=== PATIENT | female | born 1970 | race Caucasian/White ===

== ENCOUNTER 2023-08-08 13:13 | Outpatient (AMB) | payer MEDICAID, SELFPAY ==
--- NOTE | 2023-08-08 13:15 | A.OFFVIS_ITS ---
Intake Vital Signs 08/08/23 13:21 BP 110/72 Blood Pressure Location Lt radial Position Sitting Pulse 68 Pulse Source Pulse Oximeter Pulse Oximetry (%) 94 Oxygen Delivery Method Room Air Intake Visit Reasons: mat intake Intake Note: the patient presents for a mat inake Community Services Manager Required: No Allergies Penicillins Allergy (Unknown, Verified 08/08/23 13:35) Rash aspirin Adverse Reaction (Intermediate, Verified 08/08/23 13:36) Palpitations codeine Adverse Reaction (Unknown, Verified 08/08/23 13:36) Palpitations Do you need a note to return to daycare/school/sports/work: No HPI mat intake HPI Details Patient presents for intake 30 years pills methadone 13 years transitioned to Suboxone --[facility] [place] Current Suboxone dose 8mg QD Detox one month ago for alcohol --taking campral Cocaine 1-2X/week [facility] for counseling -referred by therapist Current alcohol use 5 nips daily --has reduced from one gall on of vodka over the last 2 years History of alcohol withdrawal seizure (abrupt discontinuation of alcohol) over the summer of 2021 Withdrawal sx when she doesn't drink (tremor) drinks throughout the day History pancreatitis -same admission Cocaine use IN cuts it with anesthatol 5x/week 3 lines each use Opiates Started using in her early 20's following wisdom teeth removal and percocet prescription one year of IV use -heroin Medical History: Denies chronic health issues denies HIV or hepatitis C PCP at [facility] Social History: -boyfriend for the last 3 years --he is in recovery and supportive of patient -lives with her sister who has pancreati c cancer -mother when patient was 16 yea rs old from breast cancer -father still alive 85 years old -no family history of addiction Treatment history -3 [facility] admissions 1 for opiates and 2 fo r alcohol Recovery supports: -family, friends and boyfriend -AA meetings in [place] Does not work, occasionally side work father supports her financially BH History: -no psychiatric admissions -no psychiatric medications -therapist at [facility] for the last 4 months Review of Systems Const Reports as per HPI Physical Exam Vital Signs: Last Vital Signs Pulse 68 08/08/23 13:21 BP 110/72 08/08/23 13:21 Pulse Ox 94 08/08/23 13:21 Oxygen Delivery Method Room Air 08/08/23 13:21 Const General: cooperative and healthy appearing Psych Appearance: well kempt Speech and movement: Clear speech present Affect: Anxious affect present Assessment & Plan Assessment & Plan (1) Alcohol use disorder, severe, dependence: Code(s): F10.20 - Alcohol dependence, uncomplicated Plan: * reinforced not abruptly stopping alcohol * provided with information on safer drinking * encouraged to continue campral * suboxone refiled * follow up one week (2) Opioid use disorder: Code(s): F11.90 - Opioid use, unspecified, uncomplicated Plan: * suboxone continued (3) Cocaine use disorder: Code(s): F14.10 - Cocaine abuse, uncomplicated Plan: * risk reduction discussion Medications: New buprenorphine-naloxone 8-2 mg (Suboxone) 1 film sublingual DAILY 20 ea 0RF Coding Level of Care Code New Pt Level 4 (31936) Diagnoses Alcohol use disorder, severe, dependence F10.20 Opioid use disorder F11.90 Cocaine use disorder F14.10
[2023-08-08 13:21] VITALS: BP 110/72; PULSE 68; O2SAT 94
== END 2023-08-08 14:32 | disposition home or self-care (01) ==
PROVIDERS: Visit Provider Nurse Practitioner Psychiatric/Mental Health
DX: F10.20 Alcohol dependence, uncomplicated (principal); F11.90 Opioid use, unspecified, uncomplicated; F14.10 Cocaine abuse, uncomplicated
CPT/HCPCS: 99204

== ENCOUNTER → 2023-08-08 13:13 | Outpatient (BNVA) | payer MEDICAID, SELFPAY | PROVIDERS: Visit Provider Nurse Practitioner Psychiatric/Mental Health | DX: F10.20 Alcohol dependence, uncomplicated (principal); F11.20 Opioid dependence, uncomplicated; F14.10 Cocaine abuse, uncomplicated | CPT/HCPCS: 99212 ==

== ENCOUNTER 2023-08-14 09:26 | Outpatient (REF) | payer MEDICAID, SELFPAY ==
[2023-08-14 09:49] LABS: MANUAL DIFF FLAG NO
[2023-08-14 10:21] LABS: Basophils Absolute Auto 0.1 X10*3/uL (0.0-0.2); Basophils Percent Auto 1.1 % (0-2); Eosinophils Absolute Auto 0.1 X10*3/uL (0.0-0.4); Eosinophils Percent Auto 1.7 % (0-4); Hematocrit 44.7 % (37.0-47.0); Hemoglobin 15.5 g/dl (12.0-16.0); Imm Gran Abs Auto 0.01 X10*3/uL (0.00-0.03); Imm Gran Pct Auto 0.2 % (0.0-0.4); Lymphocytes Absolute Auto 1.7 X10*3/uL (1.2-4.9); Lymphocytes Percent Auto 32.1 % (20-40); Mean Corpuscular HGB Conc 34.7 g/dl (31.0-35.0); Mean Corpuscular Hemoglobin 34.8 pg (27.0-33.0); Mean Corpuscular Volume 100.4 fL (80.0-98.0); Monocytes Absolute Auto 0.5 X10*3/uL (0.1-1.2); Monocytes Percent Auto 9.4 % (2-11); Neutrophils Absolute Auto 2.9 x10*3/uL (2.0-8.3); Neutrophils Percent Auto 55.5 % (45-73); Platelet Count 248 X10*3/uL (160-400); Red Blood Count 4.45 X10*6/uL (4.20-5.50); Red Cell Distribution Width 12.8 % (11.0-16.0); White Blood Count 5.2 X10*3/uL (4.8-10.8)
[2023-08-14 11:32] LABS: HBc Num1 0.12 S/CO (0.00-0.79); HBsAGNum1 0.27 S/CO (0.00-0.99); HIV AB/AG Nonreactive (Nonreactive); HIV Num 1 0.09 S/CO (0.00-0.99); Hepatitis A Antibody IgM 0.15 Index (0-0.79); Hepatitis B Core Antibody Nonreactive (Nonreactive); Hepatitis B Surface Antigen Negative (Negative); ~HepC Num1 0.13 S/CO (0.00-0.79); ~Hepatitis A Antibody IgM Nonreactive (Nonreactive); ~Hepatitis B Surface Antibody REACTIVE (Nonreactive); ~Hepatitis C Antibody Nonreactive (Nonreactive)
[2023-08-14 12:17] LABS: Alanine Aminotransferase 60 U/L (0-31); Albumin Level 3.4 g/dL (3.5-5.0); Alkaline Phosphatase 143 U/L (39-117); Anion Gap 16 (12-20); Aspartate Amino Transferase 255 U/L (5-31); Blood Urea Nitrogen 6 mg/dL (9-16); Calcium 8.7 mg/dL (8.4-10.2); Carbon Dioxide 26 mmol/L (22-29); Chloride 103 mmol/L (96-108); Estimated Glomerular Filt Rate > 60; Glucose Random 105 mg/dL (60-115); Potassium 3.6 mmol/L (3.3-5.1); Sodium 141 mmol/L (135-145); Total Protein 6.8 g/dL (6.5-8.0)
== END 2023-08-14 09:27 | disposition home or self-care (01) ==
LOC: HO.LAB 09:26
PROVIDERS: Visit Provider Nurse Practitioner Psychiatric/Mental Health
DX: F10.20 Alcohol dependence, uncomplicated (principal); F14.10 Cocaine abuse, uncomplicated; F11.90 Opioid use, unspecified, uncomplicated
CPT/HCPCS: 36415; 80053; 85025; 86704; 86706; 86709; 86803; 87340; 87389; 99212

== ENCOUNTER 2023-08-14 14:40 | Outpatient (AMB) | payer MEDICAID, SELFPAY ==
--- NOTE | 2023-08-14 14:46 | A.OFFVIS_ITS ---
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 Patient disclosed her sister is stage 4 and terminal. Processed with patient. She reports she has previously gone to detox 2 times. She is currently drinking 5 nips a day to prevent withdrawal seizures. She reports she was hospitalized at [facility] for a week after complicated withdrawal and experienced seizures at that time. Her goal is to go to detox again after the holidays She does not want to be gone to rehab and miss [place] as she feels she needs continued care such as CSS after completing rehab. She reports she has a counselor that she see regularly through [facility]. She reports her cocaine use has diminished to a couple of times a week - she reports it has a relaxing effect on her. Review of Systems Const Reports as per HPI Physical Exam Vital Signs: Last Vital Signs Pulse 88 08/14/23 14:51 BP 116/74 08/14/23 14:51 Pulse Ox 96 08/14/23 14:51 Oxygen Delivery Method Room Air 08/14/23 14:51 Const General: cooperative and no acute distress Nutritional Appearance: thin Resp Effort & Inspection: normal respiratory effort Skin General skin exam: no rashes or lesions noted Psych Appearance: grossly normal Mental Status: mental status grossly normal Speech and movement: Normal speech and movement present Affect: Sad affect present Attitude: cooperative Thought content: Normal thought content present Assessment & Plan Assessment & Plan (1) Cocaine use disorder: Code(s): F14.10 - Cocaine abuse, uncomplicated Plan: - Harm reduction discussed -Goals related to use discussed (2) Alcohol use disorder, severe, dependence: Code(s): F10.20 - Alcohol dependence, uncomplicated Plan: -Harm reduction discussed -Reinforced the importance of weaning slowly from alcohol -Detox plan to be made after holidays -Follow up 2 weeks- she would like to maintain her appointments to when her sister is receiving her treatment. (3) Opioid use disorder: Code(s): F11.90 - Opioid use, unspecified, uncomplicated Plan: -Stable in recovery (2 decades) -Continue suboxone at current dose Coding Level of Care Code Est Pt Level 3 (53799) Diagnoses Cocaine use disorder F14.10 Alcohol use disorder, severe, dependence F10.20 Opioid use disorder F11.90
[2023-08-14 14:51] VITALS: BP 116/74; PULSE 88; O2SAT 96
== END 2023-08-14 15:46 | disposition home or self-care (01) ==
PROVIDERS: Visit Provider Nurse Practitioner Family
DX: F10.20 Alcohol dependence, uncomplicated (principal); F14.10 Cocaine abuse, uncomplicated; F11.90 Opioid use, unspecified, uncomplicated
CPT/HCPCS: 99213

== ENCOUNTER → 2023-08-30 13:42 | Outpatient (BNVA) | payer MEDICAID, SELFPAY | PROVIDERS: Visit Provider Nurse Practitioner Family ==

== ENCOUNTER 2023-09-11 13:52 | Outpatient (AMB) | payer MEDICAID, SELFPAY ==
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
[2023-09-11 14:09] VITALS: BP 140/60; PULSE 79; RESP 19; O2SAT 96
== END 2023-09-11 15:07 | disposition home or self-care (01) ==
PROVIDERS: Visit Provider Nurse Practitioner Family
DX: F10.20 Alcohol dependence, uncomplicated (principal); F14.10 Cocaine abuse, uncomplicated; K29.70 Gastritis, unspecified, without bleeding
CPT/HCPCS: 99214

== ENCOUNTER → 2023-09-11 13:52 | Outpatient (BNVA) | payer MEDICAID, SELFPAY | PROVIDERS: Visit Provider Nurse Practitioner Family | DX: F10.20 Alcohol dependence, uncomplicated (principal); F14.10 Cocaine abuse, uncomplicated; K29.70 Gastritis, unspecified, without bleeding | CPT/HCPCS: 99212 ==

== ENCOUNTER 2023-09-18 14:01 | Outpatient (AMB) | payer MEDICAID, SELFPAY ==
--- NOTE | 2023-09-18 14:10 | MHC.AM.SUB ---
Intake Vital Signs 09/18/23 14:11 BP 118/70 Blood Pressure Location Lt radial Position Sitting Pulse 76 Pulse Source Pulse Oximeter Pulse Oximetry (%) 96 Oxygen Delivery Method Room Air Intake Visit Reasons: mat visit Intake Note: the patient presents for a mat visit Resource Development Director Required: No Allergies Penicillins Allergy (Unknown, Verified 09/18/23 14:12) Rash aspirin Adverse Reaction (Intermediate, Verified 09/18/23 14:12) Palpitations codeine Adverse Reaction (Unknown, Verified 09/18/23 14:12) Palpitations Do you need a note to return to daycare/school/sports/work: No HPI mat visit HPI Details Pt presents for NEETU treatment and follow up She reports having GI illness x 3 days at the end of the previous week. She reports she had nausea and vomiting, and at one point experienced carpopedal spasms post vomiting. She endorses feeling fatigued, with dark urine over the weekend when she was experiencing the GI effects. She denies any RUQ pain during this time. She reports poor intake over the weekend with low appetite. She continues to drink approximately 5 nips a day to maintain she states she hates the smell and taste of them, and also hates she is dependent on them She became tearful at this time, and expressed her desire to go into detox. She reports she is not quite ready yet however, and would like to touch base with her therapist first. Review of Systems Const Reports as per HPI GI Denies abdominal pain and Reports nausea Physical Exam Vital Signs: Last Vital Signs Pulse 76 09/18/23 14:11 BP 118/70 09/18/23 14:11 Pulse Ox 96 09/18/23 14:11 Oxygen Delivery Method Room Air 09/18/23 14:11 Const General: cooperative and no acute distress Nutritional Appearance: thin Resp Effort & Inspection: normal respiratory effort and able to speak in complete sentences Psych Appearance: grossly normal Mental Status: mental status grossly normal Speech and movement: Normal speech and movement present Affect: Labile affect present Attitude: cooperative Thought process: Circumstantial thought process present Assessment & Plan Assessment & Plan (1) Alcohol use disorder, severe, dependence: Code(s): F10.20 - Alcohol dependence, uncomplicated Plan: -Labwork obtained to rule out electrolyte disturbances as a result of nausea/vomiting for multiple days in addition to chronic alcoholism -Magnesium was found to be critically low: 0.8. Patient called and advised to come to the ED for magnesium replacement, risks of delaying treatment explained to patient and her sister. Patient agreeable to going to ED. -Pt to follow up with clinic in 1 week, detox planning will begin at that time Orders: Orders Complete Blood Count Auto Diff 09/18/23 F10.20 - Alcohol dependence, uncomplicated Comprehensive Met. Panel 09/18/23 F10.20 - Alcohol dependence, uncomplicated Medications: New thiamine HCl (vitamin B1) 100 mg PO DAILY 30 tabs 3RF Refilled buprenorphine-naloxone 8-2 mg (Suboxone) 1 film sublingual DAILY 7 ea 0RF Discontinued thiamine HCl (vitamin B1) Discontinued Reason: None 50 mg PO DAILY 30 tabs 3RF Coding Level of Care Code Est Pt Level 4 (20210) Diagnoses Alcohol use disorder, severe, dependence F10.20
[2023-09-18 14:11] VITALS: BP 118/70; PULSE 76; O2SAT 96
== END 2023-09-18 14:53 | disposition home or self-care (01) ==
PROVIDERS: Visit Provider Nurse Practitioner Family
DX: F10.20 Alcohol dependence, uncomplicated (principal)
CPT/HCPCS: 99214

== ENCOUNTER 2023-09-18 14:01 | Outpatient (REF) | payer MEDICAID, SELFPAY ==
[2023-09-18 15:23] LABS: MANUAL DIFF FLAG NO
[2023-09-18 15:45] LABS: Basophils Percent Auto 0.4 % (0-2); Eosinophils Percent Auto 0.4 % (0-4); Hematocrit 43.2 % (37.0-47.0); Hemoglobin 15.2 g/dl (12.0-16.0); Imm Gran Abs Auto 0.04 X10*3/uL (0.00-0.03); Imm Gran Pct Auto 0.4 % (0.0-0.4); Lymphocytes Absolute Auto 2.3 X10*3/uL (1.2-4.9); Lymphocytes Percent Auto 23.8 % (20-40); Mean Corpuscular HGB Conc 35.2 g/dl (31.0-35.0); Mean Corpuscular Hemoglobin 34.2 pg (27.0-33.0); Mean Corpuscular Volume 97.1 fL (80.0-98.0); Mean Platelet Volume 11.3 fL (9.4-12.3); Monocytes Absolute Auto 0.6 X10*3/uL (0.1-1.2); Monocytes Percent Auto 5.8 % (2-11); Neutrophils Absolute Auto 6.6 x10*3/uL (2.0-8.3); Neutrophils Percent Auto 69.2 % (45-73); Platelet Count 158 X10*3/uL (160-400); Red Blood Count 4.45 X10*6/uL (4.20-5.50); Red Cell Distribution Width 12.5 % (11.0-16.0); White Blood Count 9.5 X10*3/uL (4.8-10.8)
[2023-09-18 16:05] LABS: Alanine Aminotransferase 56 U/L (0-31); Albumin Level 3.7 g/dL (3.5-5.0); Alkaline Phosphatase 161 U/L (39-117); Anion Gap 14 (12-20); Aspartate Amino Transferase 203 U/L (5-31); Bilirubin Total 1.6 mg/dL (0.0-1.0); Blood Urea Nitrogen 5 mg/dL (9-16); Calcium 8.3 mg/dL (8.4-10.2); Carbon Dioxide 28 mmol/L (22-29); Chloride 100 mmol/L (96-108); Estimated Glomerular Filt Rate > 60; Glucose Random 140 mg/dL (60-115); Sodium 139 mmol/L (135-145); Total Protein 7.3 g/dL (6.5-8.0)
[2023-09-18 16:56] LABS: Magnesium 0.8 mg/dL (1.6-2.6)
== END 2023-09-18 14:02 | disposition home or self-care (01) ==
LOC: HO.LAB 14:01
PROVIDERS: Visit Provider Nurse Practitioner Family
DX: F10.20 Alcohol dependence, uncomplicated (principal)
CPT/HCPCS: 36415; 80053; 83735; 85025; 99212

== ENCOUNTER 2023-09-27 13:28 | Outpatient (REF) | payer MEDICAID, SELFPAY ==
[2023-09-27 15:54] LABS: Alanine Aminotransferase 60 U/L (0-31); Albumin Level 3.4 g/dL (3.5-5.0); Alkaline Phosphatase 165 U/L (39-117); Anion Gap 10 (12-20); Aspartate Amino Transferase 189 U/L (5-31); Bilirubin Total 1.1 mg/dL (0.0-1.0); Blood Urea Nitrogen 6 mg/dL (9-16); Calcium 8.2 mg/dL (8.4-10.2); Carbon Dioxide 29 mmol/L (22-29); Chloride 106 mmol/L (96-108); Estimated Glomerular Filt Rate > 60; Glucose Random 130 mg/dL (60-115); Potassium 3.4 mmol/L (3.3-5.1); Sodium 142 mmol/L (135-145); Total Protein 6.6 g/dL (6.5-8.0)
[2023-09-27 16:08] LABS: Magnesium 1.1 mg/dL (1.6-2.6)
== END 2023-09-27 13:29 | disposition home or self-care (01) ==
LOC: HO.LAB 13:28
PROVIDERS: Visit Provider Nurse Practitioner Family
DX: F10.20 Alcohol dependence, uncomplicated (principal); F11.90 Opioid use, unspecified, uncomplicated; R89.9 Unspecified abnormal finding in specimens from other organs, systems and tissues
CPT/HCPCS: 36415; 80053; 83735; 99212

== ENCOUNTER 2023-09-27 13:28 | Outpatient (AMB) | payer MEDICAID, SELFPAY ==
--- NOTE | 2023-09-27 13:29 | A.OFFVISCC_ITS ---
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 She denies further episodes of N/V/D, or muscle spasms. She has an appointment with her therapist through [facility] tomorrow and plans to discuss rehab options. She reports her therapist has previously found her detox placement. She is expressing that she feels as though she is really done with alcohol, became tearful as she was saying this, she reports she only drinks to maintain and hates that she has to do that. She continues to drink 5-6 nips daily to prevent withdrawals. T/w provided her with an educational handout addressing the withdrawal timeline Review of Systems Const Reports as per HPI Psych Reports anxiety Physical Exam Vital Signs: Last Vital Signs Pulse 95 09/27/23 13:35 BP 110/70 09/27/23 13:35 Pulse Ox 96 09/27/23 13:35 Oxygen Delivery Method Room Air 09/27/23 13:35 Const General: cooperative, no acute distress and alert Resp Effort & Inspection: normal respiratory effort and able to speak in complete sentences Psych Appearance: grossly normal Mental Status: mental status grossly normal Speech and movement: Normal speech and movement present Affect: Labile affect present Attitude: cooperative Thought process: Tangential thought process present Results Reviewed Results Reviewed: Laboratory Tests 09/27/23 14:55 Sodium 142 Potassium 3.4 Chloride 106 Carbon Dioxide 29 Anion Gap 10 L BUN 6 L Creatinine 0.73 Estimated GFR > 60 Random Glucose 130 H Calcium 8.2 L Magnesium 1.1 L* Total Bilirubin 1.1 H AST 189 H ALT 60 H Alkaline Phosphatase 165 H Total Protein 6.6 Albumin 3.4 L Assessment & Plan Assessment & Plan (1) Opioid use disorder: Code(s): F11.90 - Opioid use, unspecified, uncomplicated Plan: -Continue suboxone at current dose -Follow up 1 week- telehealth (2) Alcohol use disorder, severe, dependence: Code(s): F10.20 - Alcohol dependence, uncomplicated Plan: -She is meeting with her therapist tomorrow to discuss rehab options -She continues to drink 5-6 nips daily to maintain and prevent seizures, harm reduction discussed -Provided withdrawal timeline education (3) Abnormal laboratory test: Code(s): R89.9 - Unspecified abnormal finding in specimens from other organs, systems and tissues Plan: -Discussed again with patient her labs drawn on 09/18 (see previous note) -Discussed seriousness of delaying medical treatment should the labs be unimpr corby include cardiac arrhythmias and potential cardica arrest, she verbalized understanding and insisting at this time she will seek treatment if her labs are abnormal. -Labwork re-ordered and pt to present for them to be drawn after appointment -Discussed with pt t/w will call her today with her results -Labs reviewed- patient phoned with critical result, she has vocalized she is [place] [facility] [place] Orders: Orders Magnesium Today R89.9 - Unspecified abnormal finding in specimens from other organs, systems and tissues Comprehensive Met. Panel Today R89.9 - Unspecified abnormal finding in specimens from other organs, systems and tissues Medications: Refilled buprenorphine-naloxone 8-2 mg (Suboxone) 1 film sublingual DAILY 7 ea 0RF Coding Level of Care Code Est Pt Level 4 (71396) Diagnoses Opioid use disorder F11.90 Alcohol use disorder, severe, dependence F10.20 Abnormal laboratory test R89.9
[2023-09-27 13:35] VITALS: BP 110/70; PULSE 95; O2SAT 96
== END 2023-09-27 14:10 | disposition home or self-care (01) ==
PROVIDERS: Visit Provider Nurse Practitioner Family
DX: F11.90 Opioid use, unspecified, uncomplicated (principal); F10.20 Alcohol dependence, uncomplicated; R89.9 Unspecified abnormal finding in specimens from other organs, systems and tissues
CPT/HCPCS: 99214

== ENCOUNTER 2023-09-27 18:33 | Emergency (ER) | payer MEDICAID, SELFPAY ==
[2023-09-27 18:42] VITALS: BP 152/91; PULSE 86; RESP 20; TEMP 36; O2SAT 97; BMI 19.2
--- NOTE | 2023-09-27 18:42 | ED_ITS ---
HPI - General Adult General Chief complaint: Recheck/Abnormal Lab/Rx Stated complaint: critically low magnesium Time Seen by Provider: 09/27/23 20:02 Mode of arrival: ambulatory Limitations: no limitations History of Present Illness HPI narrative: Patient alcoholic with polysubstance abuse with chronic hypomagnesemia on oral magnesium tablets sent by therapist for low magnesium of 1.2 patient's ran out of medication for last 2 weeks taking only [id number]-[id number] medication supplement her magnesium complaining of whole body aches and weakness with hand spasm Related Data Home Medications Medication Instructions Recorded Confirmed clonidine HCl 0.1 mg tablet 0.1 mg PO QHS 08/08/23 08/08/23 Previous Rx's Medication Instructions Recorded folic acid 1 mg tablet 1 mg PO DAILY #30 tabs 09/11/23 ondansetron 4 mg disintegrating 4 mg PO Q8H PRN nausea and 09/11/23 tablet vomiting #30 tabs sucralfate 100 mg/mL oral 5 ml PO QID #420 mL 09/11/23 suspension potassium chloride 40 mEq/15 mL 40 meq (15 mL) PO DAILY #473 mL 09/18/23 oral liquid thiamine HCl (vitamin B1) 100 mg 100 mg PO DAILY #30 tabs 09/18/23 tablet buprenorphine 8 mg-naloxone 2 mg 1 film sublingual DAILY #7 ea 09/27/23 sublingual film (Suboxone) magnesium oxide 400 mg PO BID #180 tabs 09/27/23 potassium chloride 20 mEq 20 meq PO DAILY #90 tabs 09/27/23 tablet,extended release Allergies Allergy/AdvReac Type Severity Reaction Status Date / Time Penicillins Allergy Unknown Rash Verified 09/27/23 18:42 aspirin AdvReac Intermediate Palpitation Verified 09/27/23 18:42 s codeine AdvReac Unknown Palpitation Verified 09/27/23 18:42 s Review of Systems 2 Review of Systems: Yes all other systems are reviewed and are negative [facility] Social History Social History Alcohol intake: current Alcohol intake frequency: 3 or more drinks per day Alcohol type: hard liquor Smoked in Last 30 Days: Yes Substance Use Type: Crack/Cocaine Substance Use Frequency: Occasionally Last Used Substance: Days (ago) Advance Directives: No Advance Directives Information Provided: No Patient : No Physical Exam ED Vital Signs: Vital Signs - 24 hr 09/27/23 18:42 09/27/23 19:54 Temperature 96.8 F Pulse Rate 86 75 Respiratory Rate 20 18 Blood Pressure 152/91 H 123/78 Pulse Oximetry 97 98 Oxygen Delivery Method Room Air Room Air BMI result Body Mass Index 19.2 Appearance: Alert. Oriented X3. No acute distress. Eyes: PERRLA, No Nystagmus ENT: Pharynx normal. Oral Mucosa moist Neck: Normal inspection. Neck supple. CVS: Normal heart rate and rhythm. Pulses normal. Respiratory: No respiratory distress. Equal air entry bilateral, no wheezing/rales/rhonchi Abdomen: Soft and nontender. Bowel sounds are present, no mass palpable, no CVA tenderness Skin: Skin warm and dry. Normal skin color. Normal skin turgor. Extremities: No lower extremity edema. No calf tenderness Neuro: Oriented X 3. No motor deficit. No sensory deficit.No cerebellar signs , cranial nerves II-XII intact Course Course Course Narrative: RME- 52-year-old female presents for evaluation of ?my magnesium is low. ? We received in expect call from ?[facility]. The patient's magnesium was 1.1 as an outpatient. She was vomiting last week but is also an alcoholic. Plan for repeat labs Medications Administered Discontinued Medications Generic Name Dose Route Start Last Admin Trade Name Ebenq PRN Reason Stop Dose Admin Magnesium Sulfate 2 gm in 50 mls @ 150 mls/hr 09/27/23 20:04 09/27/23 20:45 Magnesium Sulfate/H2o IV 09/27/23 20:23 Infused ONCE ONE Infusion Sodium Chloride 1,000 mls @ 999 mls/hr 09/27/23 20:11 09/27/23 21:26 Ns IV 09/27/23 21:11 Infused .Q1H1M ONE Infusion Magnesium Oxide 800 mg 09/27/23 21:35 09/27/23 21:39 Magnesium Oxide 400 Mg Tablet PO 09/27/23 21:36 800 mg ONCE ONE Administration Potassium Bicarbonate 50 meq 09/27/23 20:04 09/27/23 20:23 Potassium Bicarbonate/Cit Ac 25 Meq Tablet.Eff PO 09/27/23 20:05 50 meq ONCE ONE Administration Medical Decision Making Medical Decision Making MDM Narrative: Patient has hypomagnesemia hypokalemia which was replaced in the ER prescription for magnesium oxide was given advised patient to follow with PCP to recheck her magnesium level Lab Data MDM Lab Attestation statement: I reviewed the patient's lab results. 09/27/23 18:58 09/27/23 18:58 Labs: Lab Results 09/27/23 Range/Units 18:58 WBC 7.7 (4.8-10.8) X10*3/uL RBC 3.74 L (4.20-5.50) X10*6/uL Hgb 13.1 (12.0-16.0) g/dl Hct 37.1 (37.0-47.0) % MCV 99.2 H (80.0-98.0) fL MCH 35.0 H (27.0-33.0) pg MCHC 35.3 H (31.0-35.0) g/dl RDW 13.3 (11.0-16.0) % Plt Count 181 (160-400) X10*3/uL MPV 10.5 (9.4-12.3) fL Immature Gran % (Auto) 0.3 (0.0-0.4) % Neut % (Auto) 50.9 (45-73) % Lymph % (Auto) 40.7 H (20-40) % [place] % (Auto) 6.4 (2-11) % Eos % (Auto) 0.9 (0-4) % Baso % (Auto) 0.8 (0-2) % Lymph # (Auto) 3.1 (1.2-4.9) X10*3/uL [place] # (Auto) 0.5 (0.1-1.2) X10*3/uL Eos # (Auto) 0.1 (0.0-0.4) X10*3/uL Baso # (Auto) 0.1 (0.0-0.2) X10*3/uL Abs Immat Gran (auto) 0.02 (0.00-0.03) X10*3/uL Absolute Neuts (auto) 3.9 (2.0-8.3) x10*3/uL Absolute Nucleated RBC 0.000 (0.0-0.012) X10*3/uL Nucleated RBC % (auto) 0.0 (0.0-0.2) /100WBC Sodium 144 (135-145) mmol/L Potassium 3.1 L (3.3-5.1) mmol/L Chloride 106 (96-108) mmol/L Carbon Dioxide 29 (22-29) mmol/L Anion Gap 12 (12-20) BUN 6 L (9-16) mg/dL Creatinine 0.78 (0.5-1.4) mg/dL Estim Creat Clear Calc 71.8 Estimated GFR > 60 Random Glucose 108 (60-115) mg/dL Calcium 8.1 L (8.4-10.2) mg/dL Phosphorus 2.9 (2.7-4.5) mg/dL Magnesium 1.2 L* (1.6-2.6) mg/dL Total Bilirubin 0.9 (0.0-1.0) mg/dL AST 200 H (5-31) U/L ALT 62 H (0-31) U/L Alkaline Phosphatase 171 H (39-117) U/L Total Protein 6.8 (6.5-8.0) g/dL Albumin 3.5 (3.5-5.0) g/dL Lipase 9 (8-78) U/L Ethyl Alcohol 210 mg/dL Independent Interpretation I performed an independent interpretation of an: EKG Interpretation: Sinus bradycardia heart rate 53 beats per minute normal interval normal axis no acute ST T wave changes no acute ischemia Discharge Plan Discharge Clinical Impression: Hypomagnesemia, Chronic hypokalemia Patient Disposition: Home, Self-Care Instructions: Hypokalemia (ED), Hypomagnesemia (ED) Additional Instructions: Take magnesium and potassium tab as prescribed Have orange juice/banana as advised Follow-up with PCP to recheck potassium and magnesium level Prescriptions: New magnesium oxide 400 mg magnesium tablet 400 mg PO BID Qty: 180 3RF potassium chloride 20 mEq tablet extended release 20 meq PO DAILY Qty: 90 3RF No Action potassium chloride 40 mEq/15 mL liquid 40 meq PO DAILY Qty: 473 0RF clonidine HCl 0.1 mg tablet 0.1 mg PO QHS thiamine HCl (vitamin B1) 100 mg tablet 100 mg PO DAILY Qty: 30 3RF buprenorphine-naloxone [Suboxone] 8-2 mg film 1 film sublingual DAILY Qty: 7 0RF folic acid 1 mg tablet 1 mg PO DAILY Qty: 30 3RF ondansetron 4 mg tablet,disintegrating 4 mg PO Q8H PRN (Reason: nausea and vomiting) Qty: 30 0RF sucralfate 100 mg/mL suspension 5 ml PO QID Qty: 420 0RF Rx Instructions: swish in mouth and swallow; use after food/drink Interventions: ED Discharge Assessment Last Done: 09/27/23 22:08 Discharge Date/Time: 09/27/23 22:09
--- NOTE | 2023-09-27 18:42 | ECG_ITS ---
Test Reason : low mag Blood Pressure : / mmHG Vent. Rate : 053 BPM Atrial Rate : 053 BPM P-R Int : 126 ms QRS Dur : 092 ms QT Int : 422 ms P-R-T Axes : 045 071 067 degrees QTc Int : 395 ms Sinus bradycardia Otherwise normal ECG No previous ECGs available Referred By: Jovany Rodriguez Electronically Signed By:FAREED URIOSTEGUI
[2023-09-27 19:07] LABS: MANUAL DIFF FLAG NO
[2023-09-27 19:10] LABS: Basophils Absolute Auto 0.1 X10*3/uL (0.0-0.2); Basophils Percent Auto 0.8 % (0-2); Eosinophils Absolute Auto 0.1 X10*3/uL (0.0-0.4); Eosinophils Percent Auto 0.9 % (0-4); Hematocrit 37.1 % (37.0-47.0); Hemoglobin 13.1 g/dl (12.0-16.0); Imm Gran Abs Auto 0.02 X10*3/uL (0.00-0.03); Imm Gran Pct Auto 0.3 % (0.0-0.4); Lymphocytes Absolute Auto 3.1 X10*3/uL (1.2-4.9); Lymphocytes Percent Auto 40.7 % (20-40); Mean Corpuscular HGB Conc 35.3 g/dl (31.0-35.0); Mean Corpuscular Volume 99.2 fL (80.0-98.0); Mean Platelet Volume 10.5 fL (9.4-12.3); Monocytes Absolute Auto 0.5 X10*3/uL (0.1-1.2); Monocytes Percent Auto 6.4 % (2-11); Neutrophils Absolute Auto 3.9 x10*3/uL (2.0-8.3); Neutrophils Percent Auto 50.9 % (45-73); Platelet Count 181 X10*3/uL (160-400); Red Blood Count 3.74 X10*6/uL (4.20-5.50); Red Cell Distribution Width 13.3 % (11.0-16.0); White Blood Count 7.7 X10*3/uL (4.8-10.8)
[2023-09-27 19:18] LABS: Ethanol 210 mg/dL
[2023-09-27 19:22] LABS: Alanine Aminotransferase 62 U/L (0-31); Albumin Level 3.5 g/dL (3.5-5.0); Alkaline Phosphatase 171 U/L (39-117); Anion Gap 12 (12-20); Aspartate Amino Transferase 200 U/L (5-31); Bilirubin Total 0.9 mg/dL (0.0-1.0); Blood Urea Nitrogen 6 mg/dL (9-16); Calcium 8.1 mg/dL (8.4-10.2); Carbon Dioxide 29 mmol/L (22-29); Chloride 106 mmol/L (96-108); Creatinine Clr Calc Pharmacy 71.8; Estimated Glomerular Filt Rate > 60; Glucose Random 108 mg/dL (60-115); Lipase 9 U/L (8-78); Magnesium 1.2 mg/dL (1.6-2.6); Phosphorus 2.9 mg/dL (2.7-4.5); Potassium 3.1 mmol/L (3.3-5.1); Sodium 144 mmol/L (135-145); Total Protein 6.8 g/dL (6.5-8.0)
[2023-09-27 19:54] VITALS: BP 123/78; PULSE 75; RESP 18; O2SAT 98
[2023-09-27] MEDS: Magnesium Sulfate/H2O 2 GM/50 ML PIGGYBACK IV (20:23)
[2023-09-27] MEDS: Potassium Bicarbonate/Cit AC 25 MEQ TABLET.EFF 50 MEQ PO (20:23)
[2023-09-27] MEDS: 0.9 % Sodium Chloride 1,000 ML 999 ML IV (20:24)
[2023-09-27 21:29] VITALS: BP 126/78; PULSE 68; RESP 16; TEMP 36.4; O2SAT 98
[2023-09-27] MEDS: Magnesium Oxide 400 MG TABLET 800 MG PO (21:39)
== END 2023-09-27 22:09 | disposition home or self-care (01) ==
PROVIDERS: Physician Assistant; Emergency Provider Internal Medicine
DX: E83.42 Hypomagnesemia (principal); E87.6 Hypokalemia; R00.1 Bradycardia, unspecified; F10.129 Alcohol abuse with intoxication, unspecified; Y90.7 Blood alcohol level of 200-239 mg/100 ml; M79.10 Myalgia, unspecified site; F14.90 Cocaine use, unspecified, uncomplicated; Z79.899 Other long term (current) drug therapy
CPT/HCPCS: 36415; 80053; 80307; 83690; 83735; 84100; 85025; 93005; 96361; 96365; 99284; 99285; J3475

== ENCOUNTER → 2023-09-27 18:42 | Outpatient (BNV) | payer MEDICAID, SELFPAY | PROVIDERS: Emergency Provider Internal Medicine; Visit Provider Internal Medicine | DX: R00.1 Bradycardia, unspecified (principal) | CPT/HCPCS: 93010 ==

== ENCOUNTER 2023-10-05 15:35 | Outpatient (AMB) | payer MEDICAID, SELFPAY ==
--- NOTE | 2023-10-05 16:21 | MHC.AM.SUB ---
Intake Intake Visit Reasons: mat visit Allergies Penicillins Allergy (Unknown, Verified 09/27/23 18:42) Rash aspirin Adverse Reaction (Intermediate, Verified 09/27/23 18:42) Palpitations codeine Adverse Reaction (Unknown, Verified 09/27/23 18:42) Palpitations HPI mat visit HPI Details Patient presents via telehealth for NEETU tx and follow up She reports she has been feeling unwell (sore throat, upset stomach, fatigue) since yesterday She continues to experience intermittent nausea secondary to her alcohol use SHe reports she was seen in the ED for her hypomagnesemia, and felt much better after receiving fluids and magnesium She continues to talk about wanting to go to detox, she states she is going to call detoxes tomorrow She denies any other concerns at this time [facility] Social History Alcohol intake: current Alcohol intake frequency: 3 or more drinks per day Alcohol type: hard liquor Substance Use Type: Crack/Cocaine Review of Systems Const Reports as per HPI and Reports poor appetite ENT Reports sore throat GI Reports nausea Assessment & Plan Assessment & Plan (1) Abnormal laboratory test: Code(s): R89.9 - Unspecified abnormal finding in specimens from other organs, systems and tissues Plan: -CMP and repeat magnesium ordered, pt to get her labwork done on 10/09 -Encouraged pt to continue taking her magnesium tablets (2) Alcohol use disorder, severe, dependence: Code(s): F10.20 - Alcohol dependence, uncomplicated Plan: -She is going to be calling detox facilities -Reviewed with her not to stop drinking abruptly -Harm reduction discussed -Follow up 1 week Orders: Orders Comprehensive Met. Panel 10/09/23 R89.9 - Unspecified abnormal finding in specimens from other organs, systems and tissues Magnesium 10/09/23 R89.9 - Unspecified abnormal finding in specimens from other organs, systems and tissues Medications: Refilled ondansetron 4 mg PO Q8H PRN 30 tabs 0RF nausea and vomiting buprenorphine-naloxone 8-2 mg (Suboxone) 1 film sublingual DAILY 7 ea 0RF Telehealth Telehealth Location of provider rendering services: practice address Location of patient: address on file Patient Identification confirmed using: Name, : Yes Telehealth method: voice only Patient verbally consented to treatment: Yes Patient verbally consented to billing insurance company: Yes Patient informed of any privacy concerns related to visit: Yes Minutes spent on Phone/Video with Pt.: 20 Coding Level of Care Code Tele Est Pt Level 3 (96432) Diagnoses Abnormal laboratory test R89.9 Alcohol use disorder, severe, dependence F10.20
== END 2023-10-05 15:58 | disposition home or self-care (01) ==
LOC: HO.HCC 15:35
PROVIDERS: Visit Provider Nurse Practitioner Family
DX: R89.9 Unspecified abnormal finding in specimens from other organs, systems and tissues (principal); F10.20 Alcohol dependence, uncomplicated
CPT/HCPCS: 99213

== ENCOUNTER → 2023-10-05 15:35 | Outpatient (BNVA) | payer MEDICAID, SELFPAY | PROVIDERS: Visit Provider Nurse Practitioner Family | DX: F10.20 Alcohol dependence, uncomplicated (principal); R89.9 Unspecified abnormal finding in specimens from other organs, systems and tissues ==

== ENCOUNTER 2023-10-09 14:01 | Outpatient (REF) | payer MEDICAID, SELFPAY ==
[2023-10-09 15:52] LABS: Alanine Aminotransferase 55 U/L (0-31); Albumin Level 3.3 g/dL (3.5-5.0); Alkaline Phosphatase 199 U/L (39-117); Anion Gap 13 (12-20); Aspartate Amino Transferase 245 U/L (5-31); Bilirubin Total 1.3 mg/dL (0.0-1.0); Blood Urea Nitrogen 9 mg/dL (9-16); Calcium 8.5 mg/dL (8.4-10.2); Carbon Dioxide 32 mmol/L (22-29); Chloride 100 mmol/L (96-108); Estimated Glomerular Filt Rate > 60; Glucose Random 106 mg/dL (60-115); Magnesium 1.6 mg/dL (1.6-2.6); Potassium 3.6 mmol/L (3.3-5.1); Sodium 141 mmol/L (135-145); Total Protein 6.8 g/dL (6.5-8.0)
== END 2023-10-09 14:02 | disposition home or self-care (01) ==
LOC: HO.LAB 14:01
PROVIDERS: Visit Provider Nurse Practitioner Family
DX: R89.9 Unspecified abnormal finding in specimens from other organs, systems and tissues (principal)
CPT/HCPCS: 36415; 80053; 83735; 99212

== ENCOUNTER 2023-10-09 14:25 | Outpatient (AMB) | payer MEDICAID, SELFPAY ==
--- NOTE | 2023-10-09 14:29 | MHC.AM.SUB ---
Intake Vital Signs 10/09/23 14:50 BP 110/70 Blood Pressure Location Lt radial Position Sitting Pulse 82 Pulse Source Pulse Oximeter Pulse Oximetry (%) 98 Oxygen Delivery Method Room Air Intake Visit Reasons: mat visit Intake Note: The patient presents for a mat visit Central Control Room Operator Required: No Allergies Penicillins Allergy (Unknown, Verified 10/09/23 14:30) Rash aspirin Adverse Reaction (Intermediate, Verified 10/09/23 14:30) Palpitations codeine Adverse Reaction (Unknown, Verified 10/09/23 14:30) Palpitations Do you need a note to return to daycare/school/sports/work: No HPI mat visit HPI Details Pt presents for NEETU treatment and follow up She is tearful at this visit, stating she is done with alcohol, and can't wait to be able to stop She has been making arrangements so that she is able to go away for a few days to detox She feels as though she will be ready on to start making calls She reports she has been feeling much better since she started taking the magnesium and potassium Says her boyfriend will be a good recovery support for her when she stops drinking, she says he has been sober x 7 yrs [facility] Social History Alcohol intake: current Alcohol intake frequency: 3 or more drinks per day Alcohol type: hard liquor Substance Use Type: Crack/Cocaine Review of Systems Const Reports as per HPI Physical Exam Vital Signs: Last Vital Signs Pulse 82 10/09/23 14:50 BP 110/70 10/09/23 14:50 Pulse Ox 98 10/09/23 14:50 Oxygen Delivery Method Room Air 10/09/23 14:50 Const General: cooperative and no acute distress Nutritional Appearance: malnourished Resp Effort & Inspection: normal respiratory effort and able to speak in complete sentences Psych Appearance: grossly normal Mental Status: mental status grossly normal Speech and movement: Normal speech and movement present Affect: Labile affect present Assessment & Plan Assessment & Plan (1) Opioid use disorder: Code(s): F11.90 - Opioid use, unspecified, uncomplicated Plan: -Continue suboxone at current dose (2) Alcohol use disorder, severe, dependence: Code(s): F10.20 - Alcohol dependence, uncomplicated Plan: -She is planning on calling detoxes on -She continues to drink 5-6 nips daily, reviewed with her not to cut down suddenly -Follow up 1 week Coding Level of Care Code Est Pt Level 3 (23369) Diagnoses Opioid use disorder F11.90 Alcohol use disorder, severe, dependence F10.20
[2023-10-09 14:50] VITALS: BP 110/70; PULSE 82; O2SAT 98
== END 2023-10-09 15:18 | disposition home or self-care (01) ==
LOC: HO.HCC 14:25
PROVIDERS: Visit Provider Nurse Practitioner Family
DX: F11.90 Opioid use, unspecified, uncomplicated (principal); F10.20 Alcohol dependence, uncomplicated
CPT/HCPCS: 99213

== ENCOUNTER 2023-10-25 13:05 | Outpatient (AMB) | payer MEDICAID, SELFPAY ==
--- NOTE | 2023-10-25 13:13 | A.OFFVISCC_ITS ---
Intake Vital Signs 10/25/23 13:17 Height 5 ft 6 in Weight 118 lb BMI 19.0 BP 110/74 Blood Pressure Location Lt radial Position Sitting Pulse 84 Pulse Source Pulse Oximeter Pulse Oximetry (%) 97 Oxygen Delivery Method Room Air Intake Visit Reasons: mat visit Intake Note: the patient is here for a mat visit Proposal Rep Required: No Allergies Penicillins Allergy (Unknown, Verified 10/25/23 13:32) Rash aspirin Adverse Reaction (Intermediate, Verified 10/25/23 13:32) Palpitations codeine Adverse Reaction (Unknown, Verified 10/25/23 13:32) Palpitations Do you need a note to return to daycare/school/sports/work: No HPI mat visit HPI Details Patient presents for MAT visit She continues to talk about detox but becomes evasive when staff attempts to plan with her a bedsearch She perseverated on her sister, reporting her sister needs her, but she knows she needs to stop drinking and that she needs detox She is fearful of failure Reports she was sick over the last weekend x 3-4 days with nausea and did not take magnesium during that time She re-started taking her magnesium again on Sunday Reports cocaine use has been 3-4 times a week approx 2 lines per use She uses the cocaine because she feels it calms her [facility] Social History Alcohol intake: current Alcohol intake frequency: 3 or more drinks per day Alcohol type: hard liquor Substance Use Type: Crack/Cocaine Review of Systems Const Reports as per HPI Physical Exam Vital Signs: Last Vital Signs Pulse 84 10/25/23 13:17 BP 110/74 10/25/23 13:17 Pulse Ox 97 10/25/23 13:17 Oxygen Delivery Method Room Air 10/25/23 13:17 BMI result Body Mass Index 19.0 Const General: cooperative and no acute distress Nutritional Appearance: thin Resp Effort & Inspection: normal respiratory effort Psych Appearance: disheveled Mental Status: mental status grossly normal Speech and movement: Pressured speech present Affect: Labile affect present Attitude: cooperative Thought process: Circumstantial thought process present Results AMB 14 Panel Urine Drug Screen Urine Marijuana (THC) Negative Last Edit by Francisca Murdock CMA on 10/25/23 13:33 Urine Cocaine Positive Last Edit by Francisca Murdock CMA on 10/25/23 13:33 Urine Morphine Negative Last Edit by Francisca Murdock CMA on 10/25/23 13:33 Urine Methamphetamine Negative Last Edit by Francisca Murdock CMA on 10/25/23 13:33 Urine Amphetamine Negative Last Edit by Francisca Murdock CMA on 10/25/23 13:3 3 Urine Benzodiazepine Negative Last Edit by Francisca Murdock CMA on 10/25/23 13:33 Urine Barbiturates Negative Last Edit by Francisca Murdock CMA on 10/25/23 13: 33 Urine Methadone Negative Last Edit by Francisca Murdock CMA on 10/25/23 13:33 Urine Buprenorphine Positive Last Edit by Francisca Murdock CMA on 10/25/23 13 :33 Urine Tricyclic Antidepressant Negative Last Edit by Francisca Murdock CMA on 10/25/23 13:33 Urine MDMA Negative Last Edit by Francisca Murdock CMA on 10/25/23 13:33 Urine Oxycodone Negative Last Edit by Francisca Murdock CMA on 10/25/23 13:33 Urine Phencyclidine Negative Last Edit by Francisca Murdock CMA on 10/25/23 13 :33 Urine Propoxyphene Negative Last Edit by Francisca Murdock CMA on 10/25/23 13: 33 Results Reviewed Results Reviewed: Laboratory Last Values POC Urine Buprenorphine Positive 10/25/23 13:14 POC Urine Morphine Negative 10/25/23 13:14 POC Urine Oxycodone Negative 10/25/23 13:14 POC Urine Methadone Negative 10/25/23 13:14 POC Urine Propoxyphene Negative 10/25/23 13:14 POC Urine Barbiturates Negative 10/25/23 13:14 POC U Tricyclic Antidpr Negative 10/25/23 13:14 POC Urine PCP Negative 10/25/23 13:14 POC Ur Amphetamines Negative 10/25/23 13:14 POC Ur Methamphetamine Negative 10/25/23 13:14 POC Urine MDMA Negative 10/25/23 13:14 POC Ur Benzodiazepine Negative 10/25/23 13:14 POC Urine Cocaine Positive 10/25/23 13:14 POC Ur Marijuana (THC) Negative 10/25/23 13:14 Assessment & Plan Assessment & Plan (1) Cocaine use disorder: Code(s): F14.10 - Cocaine abuse, uncomplicated Plan: -Harm reduction discussion -Educated her on risks of continuing cocaine use -Discussed with her trialing topamax to decrease cravings/urges, med education provided -Discussed with her if she experiences acute onset depression or SI to immediately stop medication and seek higher level of care (2) Alcohol use disorder, severe, dependence: Code(s): F10.20 - Alcohol dependence, uncomplicated Plan: -Harm reduction discussion -Discussed with patient to set a hard and fast number of nips to drink daily (currently drinking 5-7) so that she can measure daily alcohol use and start to gradually reduce -Encouraged her to start journaling all of the reasons why she wants to stop drinking as well as all of the hobbies she wishes to pursue when she stopped alcohol use (3) Opioid use disorder: Code(s): F11.90 - Opioid use, unspecified, uncomplicated Plan: -Mass pat reviewed -Continue Suboxone at current dose -Follow up 1 week Plan -Mass pat reviewed -Continue Suboxone at current dose -Follow up 1 week Orders: Orders AMB 14 Panel Urine Drug Screen Today Z51.81 - Encounter for therapeutic drug level monitoring Medications: New topiramate Take 1 tablet first 2 days, if well tolerated increase to twice daily 25 mg PO BID 14 tabs 0RF Refilled buprenorphine-naloxone 8-2 mg (Suboxone) 1 film sublingual DAILY 7 ea 0RF Coding Level of Care Code Est Pt Level 4 (93052) Diagnoses Cocaine use disorder F14.10 Alcohol use disorder, severe, dependence F10.20 Opioid use disorder F11.90 Time Spent (min) 40
[2023-10-25 13:17] VITALS: BP 110/74; PULSE 84; O2SAT 97; BMI 19.0
== END 2023-10-25 14:07 | disposition home or self-care (01) ==
PROVIDERS: Visit Provider Nurse Practitioner Family
DX: F14.10 Cocaine abuse, uncomplicated (principal); F10.20 Alcohol dependence, uncomplicated; F11.90 Opioid use, unspecified, uncomplicated; Z51.81 Encounter for therapeutic drug level monitoring
CPT/HCPCS: 99214

== ENCOUNTER → 2023-10-25 13:05 | Outpatient (BNVA) | payer MEDICAID, SELFPAY | PROVIDERS: Visit Provider Nurse Practitioner Family | DX: F14.10 Cocaine abuse, uncomplicated (principal); F10.20 Alcohol dependence, uncomplicated; F11.20 Opioid dependence, uncomplicated | CPT/HCPCS: 80305; 99212 ==

== ENCOUNTER 2023-10-30 14:20 | Outpatient (AMB) | payer MEDICAID, SELFPAY ==
--- NOTE | 2023-10-30 14:38 | A.OFFVISCC_ITS ---
Intake Intake Visit Reasons: mat visit Allergies Penicillins Allergy (Unknown, Verified 10/25/23 13:32) Rash aspirin Adverse Reaction (Intermediate, Verified 10/25/23 13:32) Palpitations codeine Adverse Reaction (Unknown, Verified 10/25/23 13:32) Palpitations HPI mat visit HPI Details Patient presents for MAT visit via telehealth She reports she had poor sleep last night due to nightmares She states she is still taking her magnesium and B vitamins Denies any side effects to the topamax Reports she plans on calling her therapist for an appt today When asked about measuring her alcohol intake she reports there are multiple opened nips around the house that she takes sips from when she feels she needs to. She has set a goal of 6 nips a day [facility] Social History Alcohol intake: current Alcohol intake frequency: 3 or more drinks per day Alcohol type: hard liquor Substance Use Type: Crack/Cocaine Review of Systems Const Reports as per HPI and Reports difficulty sleeping Assessment & Plan Assessment & Plan (1) Alcohol use disorder, severe, dependence: Code(s): F10.20 - Alcohol dependence, uncomplicated Plan: -Reviewed with her to start measuring her alcohol intake -Follow up 1 week (2) Opioid use disorder: Code(s): F11.90 - Opioid use, unspecified, uncomplicated Plan: -Suboxone refilled, continue at same dose Orders: Orders Comprehensive Met. Panel 11/06/23 R89.9 - Unspecified abnormal finding in specimens from other organs, systems and tissues Magnesium 11/06/23 R89.9 - Unspecified abnormal finding in specimens from other organs, systems and tissues Medications: Refilled buprenorphine-naloxone 8-2 mg (Suboxone) 1 film sublingual DAILY 7 ea 0RF Telehealth Telehealth Location of provider rendering services: practice address Location of patient: address on file Patient Identification confirmed using: Name, : Yes Telehealth method: voice only Patient verbally consented to treatment: Yes Patient verbally consented to billing insurance company: Yes Patient informed of any privacy concerns related to visit: Yes Minutes spent on Phone/Video with Pt.: 20 Coding Level of Care Code Tele Est Pt Level 3 (15015) Diagnoses Alcohol use disorder, severe, dependence F10.20 Opioid use disorder F11.90 Time Spent (min) 30
== END 2023-10-30 15:02 | disposition home or self-care (01) ==
PROVIDERS: Visit Provider Nurse Practitioner Family
DX: F10.20 Alcohol dependence, uncomplicated (principal); F11.90 Opioid use, unspecified, uncomplicated
CPT/HCPCS: 99213

== ENCOUNTER → 2023-10-30 14:20 | Outpatient (BNVA) | payer MEDICAID, SELFPAY | PROVIDERS: Visit Provider Nurse Practitioner Family | DX: Z51.81 Encounter for therapeutic drug level monitoring (principal) ==

== ENCOUNTER 2023-11-08 13:42 | Inpatient (IN) | payer MEDICAID, SELFPAY ==
--- NOTE | ~2023-11-08 | US_ITS ---
EXAMINATION: US ABDOMEN LIMITED CLINICAL INFORMATION: Right-sided abdominal pain. Question CBD stone. COMPARISON: CT abdomen and pelvis 11/08/2023. TECHNIQUE: Real-time imaging of the right upper quadrant abdominal viscera. Technically limited study secondary to bowel gas and body habitus. FINDINGS: PANCREAS: Largely obscured by overlapping bowel gas. LIVER: The liver is normal in size. The liver contour is normal. Parenchymal echogenicity is mildly increased. No focal hepatic lesion. There is left biliary ductal dilatation. There is reversal of flow in the main portal vein. GALLBLADDER: There is cholelithiasis. There is gallbladder wall thickening to 4 mm, without gallbladder wall edema. The gallbladder is somewhat hydropic, with a longitudinal span of 12.1 cm. No evidence of pericholecystic fluid. COMMON BILE DUCT: Increased in caliber, measuring 1.3 cm in diameter. No focal choledocholith is seen. FREE FLUID: None. US/US abdomen limited IMPRESSION: 1. Corresponding with the accompanying CT findings, there is gallbladder hydrops, with mild gallbladder wall edema, common bile duct dilatation and left hepatic ductal dilatation. Mild cholelithiasis is seen, and no focal choledocholith is seen. A distal common bile duct obstruction is suspected. 2. Again, there is hepatic steatosis. 3. There is reversal of flow of the main portal vein, suggesting portal hypertension. 4. Technically limited ultrasound examination of the pancreas.
--- NOTE | ~2023-11-08 | CT_ITS ---
EXAMINATION: CT ABDOMEN AND PELVIS WITH CONTRAST CLINICAL INFORMATION: Vomiting and diarrhea. COMPARISON: None available. TECHNIQUE: Multidetector volumetric images were obtained from the superior aspect of the liver through the pubic symphysis following administration 85 mL of Omnipaque 350 intravenous contrast. Sagittal and coronal reformatted images were obtained on the technologist's workstation. Oral contrast: No This CT examination was performed using dose optimization techniques as appropriate, variously including the following: *Automated exposure control *Adjustment of mA and/or kV according to patient size (this includes techniques or standardized protocols for targeted exams where dose is matched to indication/reason for exam; i.e. extremities or head) *Use of iterative reconstruction technique DLP: 342 mGy-cm. FINDINGS: LUNG BASES: Emphysematous changes within the lung bases. No nodule or consolidation. LIVER, GALLBLADDER, AND BILIARY TREE: Heterogeneously decreased hepatic parenchymal echogenicity, consistent with steatosis. The liver is enlarged measuring up to 23 cm in greatest axial dimension. No focal hepatic lesion or biliary ductal dilatation is present. Mildly dilated gallbladder with prominence of the common bile duct measuring up to 0.8 cm in greatest dimension. Findings could indicate a distal common bile duct obstruction, including a nonradiopaque stone or ampullary lesion. PANCREAS: No pancreatic ductal dilatation. No associated inflammatory change. No discrete pancreatic parenchymal lesion. SPLEEN: Unremarkable. ADRENAL GLANDS: Unremarkable. KIDNEYS AND URETERS: The kidneys are normal in size, shape, and attenuation. No hydronephrosis, hydroureter, or calculi seen. No perinephric stranding. BLADDER: Partially distended and unremarkable. GASTROINTESTINAL TRACT: No small or large bowel obstruction. Mild cecal wall thickening with minimal adjacent stranding. Findings could represent a focal infectious or inflammatory process. An underlying lesion cannot be excluded in the appropriate clinical setting. No additional bowel wall thickening or inflammatory change. Unremarkable appendix. PERITONEAL CAVITY: Trace pelvic free fluid. No organized fluid collection or abscess formation. No intra-abdominal free air. ABDOMINAL WALL: No significant hernia is appreciated. LYMPH NODES: No significant lymphadenopathy. VASCULAR: No abdominal aortic dilatation or dissection. Scattered atherosclerotic calcifications. PELVIC VISCERA: The uterus and adnexa are unremarkable. OSSEOUS STRUCTURES: Subacute/chronic appearing lateral right 10th rib fracture with mild new bone/callus formation. No acute fracture or dislocation. CT/CT abdomen pelvis w IV con IMPRESSION: 1. Mild cecal wall thickening with minimal adjacent stranding. Findings could represent a focal infectious or inflammatory process. An underlying lesion cannot be excluded in the appropriate clinical setting. No additional bowel wall thickening or inflammatory change. Unremarkable appendix. 2. Trace pelvic free fluid. No organized fluid collection or abscess formation. No intra-abdominal free air. 3. Hepatomegaly and steatosis. No hepatic parenchymal lesion or biliary ductal dilatation. 4. Mildly dilated gallbladder with prominence of the common bile duct. Findings could indicate a distal common bile duct obstruction, including a nonradiopaque stone or ampullary lesion. 5. Subacute/chronic appearing lateral right 10th rib fracture with mild new bone/callus formation. Fleischner guidelines were followed.
--- NOTE | 2023-11-08 13:58 | ED.GENADULT ---
HPI - General Adult General Chief complaint: Nausea/Vomiting/Diarrhea Stated complaint: Vomiting, dehydration Time Seen by Provider: 11/08/23 19:25 Source: patient Mode of arrival: ambulatory Limitations: no limitations History of Present Illness HPI narrative: Patient is a 52-year-old female who presents emergency department for evaluation of diffuse upper abdominal pain, nausea, biliary emesis, and diarrhea. Reports 3-4 liquid stools daily without hematochezia or melena. Denies any recent antibiotic usage, history of C diff infection or recent travel. She attributes this to her alcohol consumption, reports a history of pancreatitis. She does state that over the past few weeks she has been trying to wean off her amount of alcohol consumption previously was drinking 8-10 nips of 100 proof vodka daily over the past few weeks has only been consuming 5-7 nips. She does report a history of withdrawal seizures. States she was recently admitted to [facility] within the past few months for pancreatitis. Expresses concern that her pain she is experiencing now is consistent with prior episodes of pancreatitis. When asked, she does report having dark and odorous urine, mild discomfort wall urinating. Denies any vaginal discharge, pruritus, or concern for STI. Denies any recent sick contacts. Denies fevers. She does report a history of chronic low magnesium and states she has been taking her oral magnesium supplement. Related Data Home Medications Medication Instructions Recorded Confirmed clonidine HCl 0.1 mg tablet 0.1 mg PO QHS PRN anxiety/insomnia 08/08/23 11/08/23 hydroxyzine HCl 50 mg tablet 50 mg PO TID PRN Anxiety 11/08/23 11/08/23 thiamine HCl (vitamin B1) 50 mg 50 mg PO DAILY 11/08/23 11/08/23 tablet Previous Rx's Medication Instructions Recorded folic acid 1 mg tablet 1 mg PO DAILY #30 tabs 09/11/23 potassium chloride 40 mEq/15 mL 40 meq (15 mL) PO DAILY #473 mL 09/18/23 oral liquid magnesium oxide 400 mg PO BID #180 tabs 09/27/23 ondansetron 4 mg disintegrating 4 mg PO Q8H PRN nausea and 10/05/23 tablet vomiting #30 tabs buprenorphine 8 mg-naloxone 2 mg 1 film sublingual DAILY #7 ea 10/30/23 sublingual film (Suboxone) Allergies Allergy/AdvReac Type Severity Reaction Status Date / Time Penicillins Allergy Unknown Rash Verified 10/25/23 13:32 aspirin AdvReac Intermediate Palpitation Verified 10/25/23 13:32 s codeine AdvReac Unknown Palpitation Verified 10/25/23 13:32 s Review of Systems Review of Systems: Yes all other systems are reviewed and are negative [facility] Past Medical History Attestation statement: The following information was validated with the patient. Source: old records reviewed Medical History (Updated 11/09/23 @ 02:42 by Socorro Maguire CNP) Polysubstance use disorder Social History Social History Alcohol intake: current Alcohol intake frequency: 3 or more drinks per day Alcohol type: hard liquor Patient Tobacco Use Status: Current everyday Tobacco user Smoked in Last 30 Days: Yes Use of substances other than those prescribed or required for medical reasons: Yes Substance Use Type: Crack/Cocaine Substance Use Frequency: Occasionally Advance Directives: No Advance Directives Information Provided: No Patient : No Physical Exam ED Vital Signs: Vital Signs - 24 hr 11/08/23 14:00 11/08/23 17:46 11/08/23 19:42 Temperature 98.1 F 98.4 F 98.5 F Pulse Rate 99 88 64 Respiratory Rate 18 18 16 Blood Pressure 135/86 130/79 123/83 Pulse Oximetry 99 97 96 Oxygen Delivery Method Room Air Room Air Room Air BMI result Body Mass Index 19.4 Appearance: Alert.?Oriented to person, place and time. No acute distress.?Normal affect. Eyes: Pupils equal, round and reactive to light.? ENT: Pharynx normal.?? Neck: Normal inspection.? Neck supple.?? CVS: Heart sounds normal. Normal heart rate and rhythm.? Pulses normal.?? Respiratory: No respiratory distress.? Lung sounds clear to auscultation bilaterally?? Abdomen: Soft with diffuse upper abdominal tenderness upon palpation, worse in the epigastric region, negative Magaña sign. Normoactive bowel sounds. No pulsatile mass.??No CVA tenderness Skin: Skin warm and dry.? Normal skin color.? Extremities: No lower extremity edema.? Neuro: Moves all extremities spontaneously. Sensation intact bilaterally. No focal neuro deficits. Ambulates with normal steady gait. Course Course Course Narrative: This is a rapid medical exam: Additional HPI, ROS, PE not included below will be deferred to primary provider. Patient is a 52-year-old female with history of alcohol use disorder, cocaine use disorder, opioid use disorder, pancreatitis, and gastritis presenting to the ED with complaint of nausea, vomiting, and diarrhea for the past 5 days. States she last drank alcohol just before coming into the ED. Reports known liver disease. Complains of very dark stool and urine. Plan: labs, ua Reevaluation(s) Reevaluation #1: Elevated transaminases, T bili 2.9 which is higher than prior levels, alk-phos 315 also higher than previous, lipase within normal limits. No TAMIA. Hypomagnesemia at 1.3, patient to receive magnesium sulfate 2 g IV. Viral testing is negative. Urinalysis concerning for urinary tract infection versus urogenital contamination given symptoms will treat with ceftriaxone. CBC reveals leukocytosis with left shift, thrombocytopenia. CT of the abdomen and pelvis is pending Reevaluation #2: CIWA 4, started on phenobarbital protocol. CT reveals mild cecal wall thickening and adjacent stranding, no evidence of diverticulitis or appendicitis, mildly elevated gallbladder prominent CBD, 0.8 cm, possible distal CBD obstruction. Reports persistent upper abdominal pain likely secondary to gastritis in the setting of EtOH, no further episodes of diarrhea while in the emergency department, will require further evaluation with ultrasound. Admitted to Medicine Service, hospitalist Dr. Davis. Time: 22:15 Medications Administered Generic Name Dose Route Start Last Admin Trade Name Freq PRN Reason Stop Dose Admin Enoxaparin Sodium 40 mg 11/08/23 22:30 11/08/23 22:27 Enoxaparin Sodium 40 Mg/0.4 Ml Syringe SUBCUT Not Given Q24H DEVON Phenobarbital Sodium 165.1 mg 11/09/23 01:00 11/09/23 01:36 Phenobarbital Sodium 130 Mg/Ml Vial Im Q3hx2 IM 11/09/23 04:01 165.1 mg Q3H DEVON Administration Protocol Sodium Chloride 3 ml 11/09/23 00:00 11/08/23 22:57 0.9 % Sodium Chloride Flush 3 Ml Syringe IVFLUSH Not Given QSHIFT DEVON Discontinued Medications Generic Name Dose Route Start Last Admin Trade Name Freq PRN Reason Stop Dose Admin Sodium Chloride 1,000 mls @ 999 mls/hr 11/08/23 19:30 11/08/23 23:56 Ns IV 11/08/23 20:30 Infused .Q1H1M DEVON Infusion Magnesium Sulfate 2 gm in 50 mls @ 25 mls/hr 11/08/23 19:26 11/08/23 23:56 Magnesium Sulfate/H2o IV 11/08/23 21:25 Infused ONCE ONE Infusion Ceftriaxone Sodium 1 gm/ 50 mls @ 100 mls/hr 11/08/23 19:26 11/08/23 22:09 Sodium Chloride IV 11/08/23 19:55 Infused ONCE ONE Infusion Thiamine HCl 100 mg/ Sodium 101 mls @ 202 mls/hr 11/08/23 21:37 11/08/23 23:56 Chloride IV 11/08/23 22:06 Infused ONCE ONE Infusion Albumin Human 100 mls @ 100 mls/hr 11/08/23 23:30 11/09/23 01:34 Kedbumin 25 % IV 11/09/23 01:29 100 mls/hr Q1H DEVON Administration Iohexol 85 ml 11/08/23 20:06 11/08/23 20:06 Iohexol 350 Mg/Ml 100 Ml Infus..Btl IV 11/08/23 20:07 85 ml ONCE ONE Administration Morphine Sulfate 4 mg 11/08/23 20:27 11/08/23 20:36 Morphine Sulfate 4 Mg/Ml Cartridge IVPUSH 11/08/23 20:28 4 mg ONCE ONE Administration Protocol Nicotine 21 mg 11/08/23 21:35 11/08/23 21:48 Nicotine 21 Mg Patch.Td24 TRANSDERMA 11/08/23 21:36 21 mg ONCE ONE Administration Ondansetron HCl 4 mg 11/08/23 19:26 11/08/23 19:48 Ondansetron Hcl 4 Mg/2 Ml Vial IVPUSH 11/08/23 19:27 4 mg ONCE ONE Administration Pantoprazole Sodium 40 mg 11/08/23 23:11 11/08/23 23:52 Pantoprazole Sodium 40 Mg/10 Ml Vial IVPUSH 11/08/23 23:12 40 mg ONCE ONE Administration Phenobarbital Sodium 221 mg 11/08/23 22:00 11/08/23 22:22 Phenobarbital Sodium 130 Mg/Ml Im Once IM 11/08/23 22:01 221 mg ONCE ONE Administration Protocol Prochlorperazine Edisylate 5 mg 11/08/23 23:01 11/08/23 23:52 Prochlorperazine Edisylate 10 Mg/2 Ml Vial IVPUSH 11/08/23 23:02 5 mg ONCE ONE Administration Medical Decision Making Medical Decision Making MDM Narrative: Patient is a 52-year-old female with past medical history of polysubstance use disorder, history of opiate usage currently on Suboxone, alcohol use disorder trying to decrease her amount of consumption following with addiction medicine, presents emergency department for evaluation of diffuse upper abdominal pain in addition to nausea vomiting and diarrhea over the past 5 days as per HPI. Abdominal examination is notable for diffuse tenderness in the upper regions primarily in the epigastric, negative Magaña sign. Will obtain CBC to evaluate for leukocytosis/ anemia, CMP and lipase to evaluate for abnormal electrolytes /abnormal renal function/ abnormal hepatic/biliary function, CT of the abdomen and pelvis and Urinalysis. Differential Diagnosis Differential Diagnoses: The differential diagnosis associated with the presentation includes (Gastritis, pancreatitis, cholecystitis, diverticulitis, colitis, enteritis) Admission/Observation Consideration of admission/observation: Escalation of care including admission/observation considered (See narrative above and course narrative for further detail) Consult Healthcare Provider Management of the patient was discussed with: Hospitalist (See course narrative) Lab Data [facility] Lab Attestation statement: I reviewed the patient's lab results. (See course narrative) 11/08/23 14:14 11/08/23 14:14 Labs: Lab Results 11/08/23 11/08/23 11/08/23 Range/Units 14:13 14:14 14:20 WBC 13.5 H (4.8-10.8) X10*3/uL RBC 3.55 L (4.20-5.50) X10*6/uL Hgb 12.9 (12.0-16.0) g/dl Hct 36.2 L (37.0-47.0) % MCV 102.0 H (80.0-98.0) fL MCH 36.3 H (27.0-33.0) pg MCHC 35.6 H (31.0-35.0) g/dl RDW 13.0 (11.0-16.0) % Plt Count 127 L D (160-400) X10*3/uL MPV 11.5 (9.4-12.3) fL Immature Gran % (Auto) Cancelled Neut % (Auto) Cancelled Lymph % (Auto) Cancelled [place] % (Auto) Cancelled Eos % (Auto) Cancelled Baso % (Auto) Cancelled Lymph # (Auto) Cancelled [place] # (Auto) Cancelled Eos # (Auto) Cancelled Baso # (Auto) Cancelled Abs Immat Gran (auto) Cancelled Absolute Neuts (auto) Cancelled Absolute Nucleated RBC 0.000 (0.0-0.012) X10*3/uL Nucleated RBC % (auto) 0.0 (0.0-0.2) /100WBC Neutrophils % (Manual) 84 H (45-73) % Band Neutrophils % 1 L (3-5) % Lymphocytes % (Manual) 13 L (20-40) % Atypical Lymphs % (Man) 1 (0-6) % Monocytes % (Manual) 1 L (2-11) % Abs Neuts (Manual) 11.5 H (2.0-8.3) X10*3/uL Lymphocytes # (Manual) 1.8 (1.2-4.9) X10*3/uL Atyp Lymphs # (Manual) 0.1 x10*3/uL Monocytes # (Manual) 0.1 (0.1-1.2) X10*3/uL Toxic Vacuolation PRESENT Platelet Estimate SLIGHTLY DECREASED (NORMAL) Large Platelets PRESENT Giant Platelets PRESENT Plt Morphology Comment NORMAL RBC Morphology NOTED Macrocytosis 1+ (5-14) /OIF Stomatocytes 1+ (5-14) /OIF PT 19.2 H (11.1-13.3) SEC INR 1.6 H (0.9-1.1) Sodium 135 (135-145) mmol/L Potassium 3.9 (3.3-5.1) mmol/L Chloride 96 (96-108) mmol/L Carbon Dioxide 32 H (22-29) mmol/L Anion Gap 11 L (12-20) BUN 4 L (9-16) mg/dL Creatinine 0.68 (0.5-1.4) mg/dL Estim Creat Clear Calc 84.4 Estimated GFR > 60 Random Glucose 132 H (60-115) mg/dL Calcium 8.3 L (8.4-10.2) mg/dL Magnesium 1.3 L* (1.6-2.6) mg/dL Total Bilirubin 2.9 H (0.0-1.0) mg/dL AST 181 H (5-31) U/L ALT 38 H (0-31) U/L Alkaline Phosphatase 315 H (39-117) U/L Total Protein 6.9 (6.5-8.0) g/dL Albumin 2.8 L (3.5-5.0) g/dL Lipase 23 (8-78) U/L Beta HCG, Quant < 2 mIU/mL Urine Color [place] Urine Appearance Cloudy Urine pH 7.0 (5.0-9.0) Ur Specific [place] 1.020 (1.005-1.025) Urine Protein 100 (2+) H (Neg-Trace) mg/dL Urine Glucose (UA) See Note (Negative) mg/dL Urine Ketones See Note (Negative) mg/dL Urine Blood Negative (Negative) Urine Nitrite See Note (Negative) Ur Leukocyte Esterase Trace H (Negative) Urine RBC 0-2 (0-2) /HPF Urine WBC 6-10 (0-5) /HPF Ur Squamous Epith Cells 6-10 (0-2) /HPF Urine Bacteria 4+ (None Seen) Hyaline Casts 3-5 (0-2) /LPF Urine Yeast Present Urine Opiates Screen Not Detected (Not Detect) Urine Fentanyl Screen Not Detected (Not Detect) Ur Barbiturates Screen Not Detected (Not Detect) Ur Phencyclidine Scrn Not Detected (Not Detect) Ur Amphetamines Screen Not Detected (Not Detect) U Benzodiazepines Scrn Not Detected (Not Detect) Urine Cocaine Screen POSITIVE H (Not Detect) U Marijuana (THC) Screen Not Detected (Not Detect) Ethyl Alcohol 168 mg/dL Influenza Type A (PCR) NEGATIVE (Negative) Influenza Type B (PCR) NEGATIVE (Negative) RSV RNA Qual (PCR) NEGATIVE (Negative) SARS-CoV-2 RNA (RT-PCR) NEGATIVE (Negative) Radiology Impression Discussion of test interpretation with radiology: I have reviewed the radiologist's reading. Radiologist Impression: CT/CT abdomen pelvis w IV con IMPRESSION: 1. Mild cecal wall thickening with minimal adjacent stranding. Findings could represent a focal infectious or inflammatory process. An underlying lesion cannot be excluded in the appropriate clinical setting. No additional bowel wall thickening or inflammatory change. Unremarkable appendix. 2. Trace pelvic free fluid. No organized fluid collection or abscess formation. No intra-abdominal free air. 3. Hepatomegaly and steatosis. No hepatic parenchymal lesion or biliary ductal dilatation. 4. Mildly dilated gallbladder with prominence of the common bile duct. Findings could indicate a distal common bile duct obstruction, including a nonradiopaque stone or ampullary lesion. 5. Subacute/chronic appearing lateral right 10th rib fracture with mild new bone/callus formation. External Record Review External record reviewed: Outpatient record Critical Care Time Critical Care Time Critical Care Time: Yes Total Critical Care Time: 40 Attestation: I personally attest to this critical care time spent taking care of the patient exclusive of all other billable procedures was approximately 40 minutes including initial evaluation of patient, ordering tests, CT interpretation, EKG interpretation, medical consultation, documentation, re-evaluation. Discharge Plan Discharge Clinical Impression: Gastritis, Alcohol withdrawal, Hypomagnesemia Patient Disposition: Admitted As Inpatient
[2023-11-08 14:00] VITALS: BP 135/86; PULSE 99; RESP 18; TEMP 36.7; O2SAT 99; BMI 19.4
[2023-11-08 14:23] LABS: Hematocrit 36.2 % (37.0-47.0); Hemoglobin 12.9 g/dl (12.0-16.0); Mean Corpuscular HGB Conc 35.6 g/dl (31.0-35.0); Mean Corpuscular Hemoglobin 36.3 pg (27.0-33.0); Mean Platelet Volume 11.5 fL (9.4-12.3); Red Blood Count 3.55 X10*6/uL (4.20-5.50)
[2023-11-08 14:24] LABS: WBC ABN SCTR FOR CBC 1
[2023-11-08 14:30] LABS: INTERNATIONAL NORM RATIO 1.6 (0.9-1.1); Prothrombin Time 19.2 SEC (11.1-13.3)
[2023-11-08 14:36] LABS: Appearance Urine Cloudy; Color Urine Orange; Leukocyte Esterase Urine Trace (Negative); UMIC TRIGGER UACC YES; Urine Blood Negative (Negative); Urine Protein 100 (2+) mg/dL (Neg-Trace)
[2023-11-08 14:36] LABS: Ethanol 168 mg/dL
[2023-11-08 14:46] LABS: Atypical Lymphs Percent Manual 1 % (0-6); Band Neutrophils Percent 1 % (3-5); Lymphocytes Percent Manual 13 % (20-40); Monocytes Percent Manual 1 % (2-11); Neutrophils Percent Manual 84 % (45-73)
[2023-11-08 14:47] LABS: Giant Platelet PRESENT; Large Platelet PRESENT; Macrocytosis 1+ (5-14) /OIF; Platelet Estimate SLIGHTLY DECREASED (NORMAL); Platelet Morphology Comment NORMAL; RBC Morphology NOTED
[2023-11-08 14:48] LABS: Alanine Aminotransferase 38 U/L (0-31); Albumin Level 2.8 g/dL (3.5-5.0); Alkaline Phosphatase 315 U/L (39-117); Anion Gap 11 (12-20); Aspartate Amino Transferase 181 U/L (5-31); Bilirubin Total 2.9 mg/dL (0.0-1.0); Blood Urea Nitrogen 4 mg/dL (9-16); Calcium 8.3 mg/dL (8.4-10.2); Carbon Dioxide 32 mmol/L (22-29); Chloride 96 mmol/L (96-108); Creatinine Clr Calc Pharmacy 84.4; Estimated Glomerular Filt Rate > 60; Glucose Random 132 mg/dL (60-115); HCG Quantitative < 2 mIU/mL; Lipase 23 U/L (8-78); Potassium 3.9 mmol/L (3.3-5.1); Sodium 135 mmol/L (135-145); Stomatocytes 1+ (5-14) /OIF; Total Protein 6.9 g/dL (6.5-8.0); Toxic Vacuolation PRESENT
[2023-11-08 14:49] LABS: Atypical Lymph Absolute Manual 0.1 x10*3/uL; Lymphocytes Absolute Manual 1.8 X10*3/uL (1.2-4.9); Monocytes Absolute Manual 0.1 X10*3/uL (0.1-1.2); Neutrophils Absolute Manual 11.5 X10*3/uL (2.0-8.3); Platelet Count 127 X10*3/uL (160-400); White Blood Count 13.5 X10*3/uL (4.8-10.8)
[2023-11-08 14:50] LABS: Bacteria Urine 4+ (None Seen); RBC Urine 0-2 /HPF (0-2); UACC Culture Trigger YES
[2023-11-08 14:50] LABS: Magnesium 1.3 mg/dL (1.6-2.6)
[2023-11-08 15:00] LABS: Influenza A PCR NEGATIVE (Negative); Influenza B PCR NEGATIVE (Negative); Resp Syncy Virus RNA Qual PCR NEGATIVE (Negative); SARS COV2 PCR INHOUSE NEGATIVE (Negative)
[2023-11-08 17:46] VITALS: BP 130/79; PULSE 88; RESP 18; TEMP 36.9; O2SAT 97
[2023-11-08 19:42] VITALS: BP 123/83; PULSE 64; RESP 16; TEMP 36.9; O2SAT 96
[2023-11-08] MEDS: 0.9 % Sodium Chloride 1,000 ML 999 ML IV (19:48)
[2023-11-08] MEDS: cefTRIAXone sodium 1 GM in 0.9 % Sodium Chloride 50 ML IV (19:48)
[2023-11-08] MEDS: ondansetron HCL 4 MG/2 ML VIAL IVPUSH (19:48)
[2023-11-08] MEDS: iohexoL 350 MG/ML 100 ML INFUS..BTL 85 ML IV (20:06)
[2023-11-08] MEDS: Morphine Sulfate 4 MG/ML CARTRIDGE IVPUSH (20:36)
[2023-11-08] MEDS: Magnesium Sulfate/H2O 2 GM/50 ML PIGGYBACK IV (21:32)
[2023-11-08] MEDS: Nicotine 21 MG PATCH.TD24 TRANSDERMA (21:48)
[2023-11-08] MEDS: Thiamine HCL 100 MG in 0.9 % Sodium Chloride 100 ML 202 MG IV (21:49)
[2023-11-08] MEDS: PHENobarbitaL sodium 130 MG/ML IM ONCE 221 MG IM (22:22)
[2023-11-08 22:23] VITALS: BP 105/67; PULSE 76; RESP 16; TEMP 37.1; O2SAT 94
[2023-11-08 22:25] LABS: Amphetamine Screen Urine Not Detected (Not Detect); Barbiturates, Urine Not Detected (Not Detect); Benzodiazepines Screen Urine Not Detected (Not Detect); Cannabinoid Screen Urine Not Detected (Not Detect); Cocaine Screen Urine POSITIVE (Not Detect); Fentanyl, urine Not Detected (Not Detect); Opiate Screen Urine Not Detected (Not Detect); Phencyclidine Screen Urine Not Detected (Not Detect)
--- NOTE | 2023-11-08 22:25 | PHA.MEDREC ---
Pharmacy Consult ? Medication Reconciliation Pharmacy has completed the medication reconciliation. Confirmed medications with rx bottles that patient had with her. Patient is a poor historian and unsure of what she takes. Topiramate was very recently prescribed and she had no idea what it was. Also prescribed liquid Potassium, she reports she hasn't taken it in a few weeks and is unable to take it in tablet form.
--- NOTE | 2023-11-08 22:48 | PM.IMHP ---
History of Present Illness Date of Service: 11/08/23 Attending physician on admission: Joey Davis Chief Complaint: Abdominal pain, alcohol withdrawal Pt is a 52-year-old female with a PMH significant for?alcohol use disorder with hx of alcoholic pancreatitis and alcohol with withdrawal seizures and polysubstance use disorder who presents to the ED with?right-sided abdominal pain, nausea, vomiting, and diarrhea times 5-6 days. Patient states she has an alcoholic and has alcoholic pancreatitis, which she believes she is experiencing right now. Reports having 3 withdrawal seizures recently and presented to [facility] where she was treated for alcoholic pancreatitis. Unclear exactly when this was, as patient alternatively indicates it was either a few days ago or a few months ago. Patient states abdominal pain is mostly located in her RUQ and a separate, sharp/shooting pain on her right lower side. Reports drinking approximately 1 pt of 100 proof vodka daily with last drink earlier today around noon or 01:00 o'clock. Denies auditory or visual hallucinations. No fever, chills. Denies chest pain/pressure, palpitations. In the ED pt was afebrile, but tachycardic up to 99. Labs were significant for leukocytosis of 13.5, magnesium 1.3, bilirubin 2.9, AST 188, ALT 38, alk-phos 315, and albumin 2.8. UA negative for UTI. Tox screen positive for cocaine at of alcohol 168. Tested negative for influenza type a and B, RSV, COVID. CT of abdomen and pelvis found mild cecal wall thickening with minimal adjacent stranding, question of focal infection versus inflammatory process versus underlying lesion. Also found trace pelvic free fluid with no organized collection or abscess; hepatomegaly and steatosis; and mildly dilated gallbladder with prominence of the CBD, possibly indicating distal common bile duct obstruction. Pt was treated with IVF, ondansetron, ceftriaxone, morphine, Mag sulfate, thiamine, and started on phenobarb protocol. Pt will be admitted to the hospital for treatment further evaluation of acute alcohol withdrawal and right-sided abdominal pain. Review of Systems Review of Systems: Right-sided abdominal pain Nausea, vomiting, diarrhea Chronic SOB, at baseline Denies chest pain/pressure, palpitations No fever, chills Denies auditory or visual hallucinations [facility] Medical History (Updated 11/08/23 @ 23:30 by EBER Maddox) Polysubstance use disorder Social History Alcohol intake: current Alcohol intake frequency: 3 or more drinks per day Alcohol type: hard liquor Smoked in Last 30 Days: Yes Use of substances other than those prescribed or required for medical reasons: Yes Substance Use Type: Crack/Cocaine Substance Use Frequency: Occasionally Advance Directives: No Advance Directives Information Provided: No Patient : No Meds Allergies Allergy/AdvReac Type Severity Reaction Status Date / Time Penicillins Allergy Unknown Rash Verified 10/25/23 13:32 aspirin AdvReac Intermediate Palpitation Verified 10/25/23 13:32 s codeine AdvReac Unknown Palpitation Verified 10/25/23 13:32 s Active Medications: Current Medications Acetaminophen (Acetaminophen 325 Mg Tablet) 650 mg PO Q6H PRN PRN Reason: Pain, Mild (Pain Scale 1-3) Enoxaparin Sodium (Enoxaparin Sodium 40 Mg/0.4 Ml Syringe) 40 mg SUBCUT Q24H [facility] Last Admin: 11/08/23 22:27 Dose: Not Given Melatonin (Melatonin 3 Mg Tablet) 6 mg PO BEDTIME PRN PRN Reason: Insomnia Ondansetron HCl (Ondansetron Hcl 4 Mg/2 Ml Vial) 4 mg IVPUSH Q8H PRN PRN Reason: Nausea and Vomiting Pharmacy Consult (Consult Rx Etoh Phenob Im/Po) 1 each MISCELLANE ONCE PRN; Protocol PRN Reason: Consult order Phenobarbital (Phenobarbital 15 Mg Tablet) 45 mg PO BID [facility]; Protocol Stop: 11/10/23 21:01 Phenobarbital (Phenobarbital 15 Mg Tablet) 15 mg PO BID [facility]; Protocol Stop: 11/12/23 21:01 Phenobarbital (Phenobarbital 15 Mg Tablet) 15 mg PO DAILY [facility]; Protocol Stop: 11/14/23 09:01 Phenobarbital Sodium (Phenobarbital Sodium 130 Mg/Ml Vial Im Q3hx2) 165.1 mg IM Q3H [facility]; Protocol Stop: 11/09/23 04:01 Sodium Chloride (0.9 % Sodium Chloride Flush 3 Ml Syringe) 3 ml IVFLUSH QSHIFT [facility] Home Medications Medication Instructions Recorded Confirmed Last Taken Type clonidine HCl 0.1 mg tablet 0.1 mg PO QHS PRN anxiety/insomnia 08/08/23 11/08/23 Unknown History hydroxyzine HCl 50 mg tablet 50 mg PO TID PRN Anxiety 11/08/23 11/08/23 Unknown History thiamine HCl (vitamin B1) 50 mg 50 mg PO DAILY 11/08/23 11/08/23 Unknown History tablet Physical Exam Vital Signs and Narrative: Vital Signs: Last Vital Signs Temp 98.5 F 11/08/23 19:42 Pulse 64 11/08/23 19:42 Resp 16 11/08/23 19:42 BP 123/83 11/08/23 19:42 Pulse Ox 96 11/08/23 19:42 O2 Del Method Room Air 11/08/23 19:42 BMI result Body Mass Index 19.4 General: AOx3, no acute distress Resp: CTA bilaterally CVS: S1, S2, RRR GI: +BS, no distention, tender to palpation on RUQ and RLQ Skin: Warm, dry Neuro: Cranial nerves II-XII grossly intact bilaterally. Motor grossly intact bilaterally Extremities: No edema Psych: Appropriate affect Results Labs 11/08/23 14:14 11/08/23 14:14 Labs: Laboratory Results - last 24 hr 11/08/23 11/08/23 11/08/23 14:13 14:14 14:20 MCV 102.0 H MCH 36.3 H MCHC 35.6 H RDW 13.0 Plt Count 127 L D MPV 11.5 Immature Gran % (Auto) Cancelled Neut % (Auto) Cancelled Lymph % (Auto) Cancelled [place] % (Auto) Cancelled Eos % (Auto) Cancelled Baso % (Auto) Cancelled Lymph # (Auto) Cancelled [place] # (Auto) Cancelled Eos # (Auto) Cancelled Baso # (Auto) Cancelled Abs Immat Gran (auto) Cancelled Absolute Neuts (auto) Cancelled Absolute Nucleated RBC 0.000 Nucleated RBC % (auto) 0.0 Neutrophils % (Manual) 84 H Band Neutrophils % 1 L Lymphocytes % (Manual) 13 L Atypical Lymphs % (Man) 1 Monocytes % (Manual) 1 L Abs Neuts (Manual) 11.5 H Lymphocytes # (Manual) 1.8 Atyp Lymphs # (Manual) 0.1 Monocytes # (Manual) 0.1 Toxic Vacuolation PRESENT Platelet Estimate SLIGHTLY DECREASED Large Platelets PRESENT Giant Platelets PRESENT Plt Morphology Comment NORMAL RBC Morphology NOTED Macrocytosis 1+ (5-14) Stomatocytes 1+ (5-14) PT 19.2 H INR 1.6 H Anion Gap 11 L Estim Creat Clear Calc 84.4 Estimated GFR > 60 Random Glucose 132 H Calcium 8.3 L Magnesium 1.3 L* Total Bilirubin 2.9 H AST 181 H ALT 38 H Alkaline Phosphatase 315 H Total Protein 6.9 Albumin 2.8 L Lipase 23 Beta HCG, Quant < 2 Urine Color [place] Urine Appearance Cloudy Urine pH 7.0 Ur Specific [place] 1.020 Urine Protein 100 (2+) H Urine Glucose (UA) See Note Urine Ketones See Note Urine Blood Negative Urine Nitrite See Note Ur Leukocyte Esterase Trace H Urine RBC 0-2 Urine WBC 6-10 Ur Squamous Epith Cells 6-10 Urine Bacteria 4+ Hyaline Casts 3-5 Urine Yeast Present Urine Opiates Screen Not Detected Urine Fentanyl Screen Not Detected Ur Barbiturates Screen Not Detected Ur Phencyclidine Scrn Not Detected Ur Amphetamines Screen Not Detected U Benzodiazepines Scrn Not Detected Urine Cocaine Screen POSITIVE H U Marijuana (THC) Screen Not Detected Ethyl Alcohol 168 Influenza Type A (PCR) NEGATIVE Influenza Type B (PCR) NEGATIVE RSV RNA Qual (PCR) NEGATIVE SARS-CoV-2 RNA (RT-PCR) NEGATIVE Imaging Radiologist's Impressions: Impressions Abdomen/Pelvis CT 11/08/23 20:16 IMPRESSION: 1. Mild cecal wall thickening with minimal adjacent stranding. Findings could represent a focal infectious or inflammatory process. An underlying lesion cannot be excluded in the appropriate clinical setting. No additional bowel wall thickening or inflammatory change. Unremarkable appendix. 2. Trace pelvic free fluid. No organized fluid collection or abscess formation. No intra-abdominal free air. 3. Hepatomegaly and steatosis. No hepatic parenchymal lesion or biliary ductal dilatation. 4. Mildly dilated gallbladder with prominence of the common bile duct. Findings could indicate a distal common bile duct obstruction, including a nonradiopaque stone or ampullary lesion. 5. Subacute/chronic appearing lateral right 10th rib fracture with mild new bone/callus formation. Fleischner guidelines were followed. Assessment and Plan (1) Alcohol use disorder, severe, dependence: Status: Acute (2) Right sided abdominal pain: Status: Acute Plan Pt is a 52-year-old female with a PMH significant for?alcohol use disorder with hx of alcoholic pancreatitis and alcohol with withdrawal seizures and polysubstance use disorder who presents to the ED with?right-sided abdominal pain, nausea, vomiting, and diarrhea times 5-6 days. Pt will be admitted to the hospital for treatment further evaluation of acute alcohol withdrawal and right-sided abdominal pain. Acute alcohol withdrawal Mild shakiness, no hallucinations Received IVF, ondansetron, and started on phenobarb protocol in the ED Continue Phenobarb protocol Daily multivitamin, folic acid 1mg, Thiamine 100 mg daily IV Protonix x1 dose, then Famotidine 20mg bid Follow lytes, Mag, BMP IVF CIWA scale Seizure protocols Addiction medicine consult Admit to telemetry Use Alcohol withdrawal order set Abdominal pain Patient complaining of RUQ and RLQ abdominal pain, N/V/D times 5-[address] of abd/pelvis found mild cecal wall thickening with minimal adjacent stranding, infectious versus inflammatory process versus underlying lesion CT of abd/pelvis also found mildly dilated gallbladder, ?of bile duct obstruction Analgesics and antiemetics Patient received 1 dose of ceftriaxone in the ED Patient does not meet sepsis criteria: Tachycardia secondary to pain/withdrawal/cocaine use, leukocytosis reactionary, not due to sepsis No indication of bacterial infection at this point, we will hold off on additional antibiotics pending imaging Will get US of abdomen Check GI panel, C diff Follow CBC Hypomagnesemia Patient's magnesium 1.3 at time of presentation Likely secondary to alcohol use disorder and intractable nausea and vomiting Received magnesium 2 g IV in ED Follow Mag Hypoalbuminemia Patient's albumin 2.8 Will treat with albumin 25 g x 2 doses Polysubstance use disorder Tox screen positive for cocaine Continue Suboxone Addiction medicine consult Full Code Attending:?Dr. Davis DVT Prophylaxis: Lovenox Pt will require a hospitalization of at least two nights for treatment of acute alcohol withdrawal in a patient with history of alcohol withdrawal seizures and treatment and further evaluation of right-sided upper and lower abdominal pain. Patient will require IV antiemetics, IVF, analgesics, phenobarb protocol, and close monitoring of labs and cardiac functioning. Quality Stroke Does the patient have a stroke diagnosis?: No VTE Prior VTE?: No VTE Risk Level:: Medical - moderate - high VTE Device Contraindication: Treatment Not Indicated VTE Drug Contraindication: N/A - Med Ordered
--- NOTE | 2023-11-08 22:50 | PC.NURSE ---
Spoke with pt's sister who was looking for updates. Informed her be staying in the hospital overnight. Sister also informed me that she is battling pancreatic cancer currently.
[2023-11-08] MEDS: Pantoprazole Sodium 40 MG/10 ML VIAL IVPUSH (23:52)
[2023-11-08] MEDS: Prochlorperazine Edisylate 10 MG/2 ML VIAL 5 MG IVPUSH (23:52)
[2023-11-08] MEDS: Albumin Human 25 % 100 ML IV (23:56)
[2023-11-09] MEDS: Albumin Human 25 % 100 ML IV (01:34)
[2023-11-09] MEDS: PHENobarbitaL sodium 130 MG/ML VIAL IM Q3Hx2 165.1 MG IM ×2 (01:36→04:11)
--- NOTE | 2023-11-09 04:59 | PC.NURSE ---
Pt comes in to ED with abd pain. Pt is a daily drinker and normally drinks up to 10 nips of 100% vodka. Last drink was prior to 1PM on Oct. Pt has a 20g IV in the right AC. Pt has been asleep throughout the night. Occasionally getting up and walking to the bathroom with steady gait. Pt is A&Ox4, GCS 15.
[2023-11-09 05:05] LABS: Eosinophils Absolute Auto 0.1 X10*3/uL (0.0-0.4); Eosinophils Percent Auto 1.4 % (0-4); Hemoglobin 10.3 g/dl (12.0-16.0); Mean Corpuscular Volume 102.8 fL (80.0-98.0); PLT CLUMP 1; Red Cell Distribution Width 13.3 % (11.0-16.0); SCAN SMEAR FLAG 1
[2023-11-09 05:06] LABS: Basophils Percent Auto 0.5 % (0-2); Hematocrit 29.3 % (37.0-47.0); Imm Gran Abs Auto 0.02 X10*3/uL (0.00-0.03); Imm Gran Pct Auto 0.3 % (0.0-0.4); Lymphocytes Percent Auto 27.3 % (20-40); MANUAL DIFF FLAG SCAN; Mean Corpuscular HGB Conc 35.2 g/dl (31.0-35.0); Mean Corpuscular Hemoglobin 36.1 pg (27.0-33.0); Mean Platelet Volume 11.8 fL (9.4-12.3); Monocytes Absolute Auto 0.4 X10*3/uL (0.1-1.2); Monocytes Percent Auto 5.1 % (2-11); Neutrophils Absolute Auto 4.8 x10*3/uL (2.0-8.3); Neutrophils Percent Auto 65.4 % (45-73); Red Blood Count 2.85 X10*6/uL (4.20-5.50)
[2023-11-09 05:12] LABS: Platelet Count 82 X10*3/uL (160-400); White Blood Count 7.4 X10*3/uL (4.8-10.8)
[2023-11-09 05:19] LABS: Anion Gap 12 (12-20); Blood Urea Nitrogen 4 mg/dL (9-16); Calcium 8.2 mg/dL (8.4-10.2); Carbon Dioxide 29 mmol/L (22-29); Chloride 105 mmol/L (96-108); Creatinine Clr Calc Pharmacy 85.7; Estimated Glomerular Filt Rate > 60; Glucose Random 117 mg/dL (60-115); Magnesium 1.6 mg/dL (1.6-2.6); Potassium 3.6 mmol/L (3.3-5.1); Sodium 142 mmol/L (135-145)
[2023-11-09 05:35] LABS: SLIDE REVIEW VERIFIED
[2023-11-09 05:51] VITALS: BP 97/64; PULSE 65; RESP 12; TEMP 37.1; O2SAT 94
[2023-11-09] MEDS: Buprenorphine/Naloxone 8/2 mg FILM 1 FILM SUBLINGUAL (09:46)
[2023-11-09] MEDS: Potassium Chloride Packet 20 MEQ PACKET 40 MEQ PO (09:46)
[2023-11-09] MEDS: Folic Acid 1 MG TABLET PO (09:47)
[2023-11-09] MEDS: PHENobarbitaL 15 MG TABLET 45 MG PO ×2 (09:47→20:57)
[2023-11-09] MEDS: Thiamine HCL 100 MG TABLET 50 MG PO (09:47)
[2023-11-09] MEDS: Famotidine 20 MG TABLET PO ×2 (09:47→20:57)
[2023-11-09] MEDS: Magnesium Oxide 400 MG TABLET PO ×2 (09:48→20:57)
[2023-11-09] MEDS: 0.9 % Sodium Chloride Flush 3 ML SYRINGE IVFLUSH ×3 (09:49→20:58)
[2023-11-09 09:51] VITALS: BP 123/73; PULSE 64; RESP 14; TEMP 36.9; O2SAT 95
--- NOTE | 2023-11-09 09:59 | PC.NURSE ---
Pt a+o x3, vss. PO meds and fluids given and tolerated well. Pt resting quietly, no apparent distress, no complaints at this time.
[2023-11-09 12:01] VITALS: BMI 20.6
[2023-11-09 12:05] VITALS: BP 123/74; PULSE 69; RESP 16; TEMP 36.6; O2SAT 96
[2023-11-09 15:06] VITALS: BP 122/64; PULSE 57; RESP 16; TEMP 36.6; O2SAT 95
--- NOTE | 2023-11-09 15:08 | HO.PM.IMPN ---
Subjective Subjective Date of Service: 11/09/23 Interval History: Somnolent but arousable. Tolerating phenobarb protocol. CIWA 1. No seizure activity Review of Systems Denies chest pain Denies shortness of breath Denies nausea vomiting diarrhea Denies fever chills Physical Exam Vital Signs: Vital Signs: Last Vital Signs Temp 97.9 F 11/09/23 12:05 Pulse 69 11/09/23 12:05 Resp 16 11/09/23 12:05 BP 123/74 11/09/23 12:05 Pulse Ox 96 11/09/23 12:05 O2 Del Method Room Air 11/09/23 12:05 BMI result Body Mass Index 20.6 Const: Other: Somnolent but arousable (phenobarb) Resp: Other: Clear to auscultation bilaterally no rales rhonchi or wheezes Cardio: Other: No S4; positive S1-S2; no S3 murmurs rubs or gallops GI: Other: Soft nontender nondistended normoactive bowel sounds Extrem: Other: No edema bilaterally Objective Data Active Medications Acetaminophen (Acetaminophen 325 Mg Tablet) 650 mg PO Q6H PRN PRN Reason: Pain, Mild (Pain Scale 1-3) Buprenorphine/Naloxone (Buprenorphine/Naloxone 8/2 Mg Film) 1 film SUBLINGUAL DAILY [facility] Last Admin: 11/09/23 09:46 Dose: 1 film Documented By: MILADYS Clonidine HCl (Clonidine Hcl 0.1 Mg Tablet) 0.1 mg PO BEDTIME PRN; Protocol PRN Reason: anxiety/insomnia Enoxaparin Sodium (Enoxaparin Sodium 40 Mg/0.4 Ml Syringe) 40 mg SUBCUT Q24H [facility] Last Admin: 11/08/23 22:27 Dose: Not Given Documented By: JAY Non-Admin Reason: Patient Refused Famotidine (Famotidine 20 Mg Tablet) 20 mg PO BID [facility] Last Admin: 11/09/23 09:47 Dose: 20 mg Documented By: MILADYS Folic Acid (Folic Acid 1 Mg Tablet) 1 mg PO DAILY [facility] Last Admin: 11/09/23 09:47 Dose: 1 mg Documented By: MILADYS Hydroxyzine HCl (Hydroxyzine Hcl 50 Mg Tablet) 50 mg PO TID PRN PRN Reason: Anxiety Magnesium Oxide (Magnesium Oxide 400 Mg Tablet) 400 mg PO BID [facility] Last Admin: 11/09/23 09:48 Dose: 400 mg Documented By: MILADYS Melatonin (Melatonin 3 Mg Tablet) 6 mg PO BEDTIME PRN PRN Reason: Insomnia Morphine Sulfate (Morphine Sulfate 2 Mg/Ml Cartridge) 2 mg IVPUSH Q4H PRN; Protocol PRN Reason: Pain, Severe (Pain Scale 7-10) Ondansetron HCl (Ondansetron Hcl 4 Mg/2 Ml Vial) 4 mg IVPUSH Q8H PRN PRN Reason: Nausea and Vomiting Pharmacy Consult (Consult Rx Etoh Phenob Im/Po) 1 each MISCELLANE ONCE PRN; Protocol PRN Reason: Consult order Phenobarbital (Phenobarbital 15 Mg Tablet) 45 mg PO BID [facility]; Protocol Stop: 11/10/23 21:01 Last Admin: 11/09/23 09:47 Dose: 45 mg Documented By: MILADYS Phenobarbital (Phenobarbital 15 Mg Tablet) 15 mg PO BID [facility]; Protocol Stop: 11/12/23 21:01 Phenobarbital (Phenobarbital 15 Mg Tablet) 15 mg PO DAILY [facility]; Protocol Stop: 11/14/23 09:01 Potassium Chloride (Potassium Chloride Packet 20 Meq Packet) 40 meq PO DAILY [facility] Last Admin: 11/09/23 09:46 Dose: 40 meq Documented By: MILADYS Sodium Chloride (0.9 % Sodium Chloride Flush 3 Ml Syringe) 3 ml IVFLUSH QSHIFT [facility] Last Admin: 11/09/23 09:49 Dose: 3 ml Documented By: MILADYS Thiamine HCl (Thiamine Hcl 100 Mg Tablet) 50 mg PO DAILY [facility] Last Admin: 11/09/23 09:47 Dose: 50 mg Documented By: MILADYS Labs 11/09/23 04:52 11/09/23 04:52 Labs: Laboratory Results - last 24 hr 11/08/23 11/09/23 14:20 04:52 MCV 102.8 H MCH 36.1 H MCHC 35.2 H RDW 13.3 Plt Count 82 L D MPV 11.8 Immature Gran % (Auto) 0.3 Neut % (Auto) 65.4 Lymph % (Auto) 27.3 [place] % (Auto) 5.1 Eos % (Auto) 1.4 Baso % (Auto) 0.5 Lymph # (Auto) 2.0 [place] # (Auto) 0.4 Eos # (Auto) 0.1 Baso # (Auto) 0.0 Abs Immat Gran (auto) 0.02 Absolute Neuts (auto) 4.8 Absolute Nucleated RBC 0.000 Nucleated RBC % (auto) 0.0 Smear Tech's Comments VERIFIED Anion Gap 12 Estim Creat Clear Calc 85.7 Estimated GFR > 60 Random Glucose 117 H Calcium 8.2 L Magnesium 1.6 Urine Opiates Screen Not Detected Urine Fentanyl Screen Not Detected Ur Barbiturates Screen Not Detected Ur Phencyclidine Scrn Not Detected Ur Amphetamines Screen Not Detected U Benzodiazepines Scrn Not Detected Urine Cocaine Screen POSITIVE H U Marijuana (THC) Screen Not Detected Microbiology Microbiology Results: Microbiology 11/08/23 Unknown Urine Culture - Preliminary Urine clean catch - Urine peguero top Culture in progress. Assessment and Plan (1) Alcohol withdrawal: Status: Acute (2) Right sided abdominal pain: Status: Acute (3) Hypomagnesemia: Status: Acute Plan Pt is a 52-year-old female with a PMH significant for?alcohol use disorder with hx of alcoholic pancreatitis and alcohol with withdrawal seizures and polysubstance use disorder who presents to the ED with?right-sided abdominal pain, nausea, vomiting, and diarrhea times 5-6 days. Pt will be admitted to the hospital for treatment further evaluation of acute alcohol withdrawal and right-sided abdominal pain. 1.Acute alcohol withdrawal Tolerating phenobarb protocol; somnolent most of morning and shift but CIWA 1 without seizure activity -continue phenobarb protocol as ordered -monitor on CIWA 2.Abd pain Ultrasound confirms findings of CT; will add back antibiotics empirically -ceftriaxone 1 g daily -surgical consult in a.m. 3.Hypomagnesemia Repleted with IV magnesium; now normal -follow renals/divalents/Mag in am 4.Polysubstance use disorder -Continue Suboxone -Addiction medicine consult appreciated Full Code Lovenox Patient requires ongoing hospitalization for phenobarb protocol to treat alcohol withdrawal acutely. Also empiric antibiotics pending surgical consult Quality Stroke Does the patient have a stroke diagnosis?: No VTE Prior VTE?: No VTE Risk Level:: Medical - moderate - high VTE Device Contraindication: Treatment Not Indicated VTE Drug Contraindication: N/A - Med Ordered
--- NOTE | 2023-11-09 18:06 | PC.NURSE ---
Continue to monitor CIWA pt on phenobarbital protocol resting comfortably . No seizure activity noted . will monitor
[2023-11-09 19:13] VITALS: BP 105/57; PULSE 77; RESP 16; TEMP 36.9; O2SAT 96
[2023-11-09] MEDS: Enoxaparin Sodium 40 MG/0.4 ML SYRINGE SUBCUT (23:23)
[2023-11-10 03:47] VITALS: BP 105/61; PULSE 73; RESP 16; TEMP 36.5; O2SAT 95
[2023-11-10 07:38] VITALS: BP 124/71; PULSE 65; RESP 18; TEMP 36.3; O2SAT 96
[2023-11-10] MEDS: 0.9 % Sodium Chloride Flush 3 ML SYRINGE IVFLUSH ×3 (08:36→20:57)
[2023-11-10] MEDS: Famotidine 20 MG TABLET PO ×2 (08:37→20:57)
[2023-11-10] MEDS: Thiamine HCL 100 MG TABLET 50 MG PO (08:38)
[2023-11-10] MEDS: Potassium Chloride Packet 20 MEQ PACKET 40 MEQ PO (08:38)
[2023-11-10] MEDS: Folic Acid 1 MG TABLET PO (08:38)
[2023-11-10] MEDS: Magnesium Oxide 400 MG TABLET PO ×2 (08:38→20:57)
[2023-11-10] MEDS: Buprenorphine/Naloxone 8/2 mg FILM 1 FILM SUBLINGUAL (08:39)
[2023-11-10] MEDS: PHENobarbitaL 15 MG TABLET 45 MG PO ×2 (08:39→20:57)
--- NOTE | 2023-11-10 10:05 | MHC.CM.PN ---
pt lives with sister had no servies has own ride home dc plan home n/s
--- NOTE | 2023-11-10 12:11 | MHC.RECOVRN ---
Met with pt in 359 after consult placed to Addiction Medicine. Pt had presented to the ED reporting nausea/vomiting/diarrhea x 5 days, and alcohol use. Upon evaluation, pt admitted for AUD and right sided abdominal pain. Pt laying in bed, asleep, eyes closed, briefly wakes to voice. Pt reports she has been working with provider at the [facility] to decrease alcohol use. Reports she is currently drinking 5-8 nips daily of 100 proof vodka. Pt reports Suboxone is going well. Pt is interested in further treatment upon dc from [facility]. Discussed [facility], pt interested however, only locally as her sister is sick. Pt agreeable to [facility] referral. Pt denies other questions or concerns for t/w. Referral has been placed.
--- NOTE | 2023-11-10 12:18 | HO.PM.IMPN ---
Subjective Subjective Date of Service: 11/10/23 Interval History: More awake this a.m.. Admits to excessive vodka intake; states willing to pursue rehab Review of Systems Denies chest pain Denies shortness of breath Denies nausea vomiting diarrhea Denies fever chills Physical Exam Vital Signs: Vital Signs: Last Vital Signs Temp 97.4 F 11/10/23 07:38 Pulse 65 11/10/23 07:38 Resp 18 11/10/23 07:38 BP 124/71 11/10/23 07:38 Pulse Ox 96 11/10/23 07:38 O2 Del Method Room Air 11/10/23 07:38 BMI result Body Mass Index 20.6 Const: Other: Somnolent but arousable (phenobarb) Resp: Other: Clear to auscultation bilaterally no rales rhonchi or wheezes Cardio: Other: No S4; positive S1-S2; no S3 murmurs rubs or gallops GI: Other: Soft nontender nondistended normoactive bowel sounds Extrem: Other: No edema bilaterally Objective Data Active Medications Acetaminophen (Acetaminophen 325 Mg Tablet) 650 mg PO Q6H PRN PRN Reason: Pain, Mild (Pain Scale 1-3) Buprenorphine/Naloxone (Buprenorphine/Naloxone 8/2 Mg Film) 1 film SUBLINGUAL DAILY [facility] Last Admin: 11/10/23 08:39 Dose: 1 film Documented By: ALBERTA Clonidine HCl (Clonidine Hcl 0.1 Mg Tablet) 0.1 mg PO BEDTIME PRN; Protocol PRN Reason: anxiety/insomnia Enoxaparin Sodium (Enoxaparin Sodium 40 Mg/0.4 Ml Syringe) 40 mg SUBCUT Q24H [facility] Last Admin: 11/09/23 23:23 Dose: 40 mg Documented By: BRIANNA Famotidine (Famotidine 20 Mg Tablet) 20 mg PO BID [facility] Last Admin: 11/10/23 08:37 Dose: 20 mg Documented By: ALBERTA Folic Acid (Folic Acid 1 Mg Tablet) 1 mg PO DAILY [facility] Last Admin: 11/10/23 08:38 Dose: 1 mg Documented By: ALBERTA Hydroxyzine HCl (Hydroxyzine Hcl 50 Mg Tablet) 50 mg PO TID PRN PRN Reason: Anxiety Magnesium Oxide (Magnesium Oxide 400 Mg Tablet) 400 mg PO BID [facility] Last Admin: 11/10/23 08:38 Dose: 400 mg Documented By: ALBERTA Melatonin (Melatonin 3 Mg Tablet) 6 mg PO BEDTIME PRN PRN Reason: Insomnia Morphine Sulfate (Morphine Sulfate 2 Mg/Ml Cartridge) 2 mg IVPUSH Q4H PRN; Protocol PRN Reason: Pain, Severe (Pain Scale 7-10) Ondansetron HCl (Ondansetron Hcl 4 Mg/2 Ml Vial) 4 mg IVPUSH Q8H PRN PRN Reason: Nausea and Vomiting Pharmacy Consult (Consult Rx Etoh Phenob Im/Po) 1 each MISCELLANE ONCE PRN; Protocol PRN Reason: Consult order Phenobarbital (Phenobarbital 15 Mg Tablet) 45 mg PO BID [facility]; Protocol Stop: 11/10/23 21:01 Last Admin: 11/10/23 08:39 Dose: 45 mg Documented By: ALBERTA Phenobarbital (Phenobarbital 15 Mg Tablet) 15 mg PO BID [facility]; Protocol Stop: 11/12/23 21:01 Phenobarbital (Phenobarbital 15 Mg Tablet) 15 mg PO DAILY [facility]; Protocol Stop: 11/14/23 09:01 Potassium Chloride (Potassium Chloride Packet 20 Meq Packet) 40 meq PO DAILY [facility] Last Admin: 11/10/23 08:38 Dose: 40 meq Documented By: ALBERTA Sodium Chloride (0.9 % Sodium Chloride Flush 3 Ml Syringe) [address] [facility] Last Admin: 11/10/23 08:36 Dose: 3 ml Documented By: ALBERTA Thiamine HCl (Thiamine Hcl 100 Mg Tablet) 50 mg PO DAILY [facility] Last Admin: 11/10/23 08:38 Dose: 50 mg Documented By: ALBERTA Labs 11/09/23 04:52 11/09/23 04:52 Microbiology Microbiology Results: Microbiology 11/08/23 Unknown Urine Culture - Preliminary Urine clean catch - Urine peguero top Gram negative vlad Assessment and Plan (1) Alcohol withdrawal: Status: Acute (2) Right sided abdominal pain: Status: Acute Plan Pt is a 52-year-old female with a PMH significant for?alcohol use disorder with hx of alcoholic pancreatitis and alcohol with withdrawal seizures and polysubstance use disorder who presents to the ED with?right-sided abdominal pain, nausea, vomiting, and diarrhea times 5-6 days. Pt will be admitted to the hospital for treatment further evaluation of acute alcohol withdrawal and right-sided abdominal pain. 1.Acute alcohol withdrawal Tolerating phenobarb protocol; less somnolent this a.m. CIWA 1 without seizure activity -continue phenobarb protocol as ordered -monitor on CIWA 2.Abd pain Ultrasound confirms findings of CT; will add back antibiotics empirically -ceftriaxone 1 g daily(2) -surgical consult in a.m. 3.Hypomagnesemia Repleted with IV magnesium; now normal -follow renals/divalents/Mag in am 4.Polysubstance use disorder -Continue Suboxone -Addiction medicine consult appreciated Full Code Lovenox Patient requires ongoing hospitalization for phenobarb protocol to treat alcohol withdrawal acutely. Also empiric antibiotics pending surgical consult Quality Stroke Does the patient have a stroke diagnosis?: No VTE Prior VTE?: No VTE Risk Level:: Medical - moderate - high VTE Device Contraindication: Treatment Not Indicated VTE Drug Contraindication: N/A - Med Ordered
[2023-11-10 15:37] VITALS: BP 107/70; PULSE 60; RESP 18; TEMP 37.2; O2SAT 95
[2023-11-10 19:29] VITALS: BP 107/72; PULSE 61; RESP 18; TEMP 36.8; O2SAT 96
[2023-11-10 20:00] VITALS: BP 109/70; PULSE 66; RESP 14; TEMP 35.9; O2SAT 95
--- NOTE | 2023-11-10 21:47 | PC.NURSE ---
pt said very tired and she wants to sleep. arousable to name and answers all my questions. but drowsy. bp is soft side all day. at 1999 bp 109/70 hr 66 rr 14. will continue to monitor.
[2023-11-10] MEDS: Enoxaparin Sodium 40 MG/0.4 ML SYRINGE SUBCUT (23:26)
[2023-11-11 00:35] VITALS: TEMP 36.7
[2023-11-11 03:06] VITALS: BP 107/72; PULSE 60; RESP 16; TEMP 36.9; O2SAT 96
[2023-11-11 07:28] VITALS: BP 118/70; PULSE 69; RESP 18; TEMP 36; O2SAT 97
--- NOTE | 2023-11-11 08:21 | P.CONGS_ITS ---
History of Present Illness Consult details Consult date: 11/11/23 Requesting physician: Murray Lara Narrative: 52 year old female patient presenting to the ED with complaints of abdominal pain in the RUQ and epigastrium of one week duration. She reports a previous history of pancreatitis due to EtOH. She previously went through detox and rehab and was doing well, but then started drinking again. She is very upset with herself for restarting the EtOH which including 100 proof vodka, and now would like to return to a detox program. Her abdominal pain is mainly in the RUQ radiating to the epigastrium and seems to increase with movement, including rolling from side to side in bed. She does not feel eating has increased the pain. She did have nausea and vomiting, but now only reports mild nausea. Work up on her current admission revealed markedly elevated LFTs. CT Abdomen and pelvis noted cecal wall thickening possibly due to inflammatory or infectious process. Liver is very large and the gallbladder is dilated. CBD is dilated to > 1 cm although no stone or mass is appreciated. Ultrasound does reveal probable very small stones/sludge within the gallbladder. This morning, she reports feeling improved and reports tolerating breakfast without nausea or vomiting. Review of Systems 2 Review of Systems: Yes all other systems are reviewed and are negative Gastrointestinal: Gastrointestinal: Reports abdominal pain, Reports constipation, Reports nausea and Reports vomiting Neurologic: Reports tremor(s) PMFSH Past Medical History Medical History (Updated 11/11/23 @ 08:42 by Durga Flores MD) Pancreatitis Polysubstance use disorder Social History Social History Household Members: Family Housing: House Do you presently have visiting nurse or other home services: No Alcohol intake: current Alcohol intake frequency: 3 or more drinks per day Alcohol type: hard liquor Patient Tobacco Use Status: Current everyday Tobacco user Tobacco use type: Cigarette Second Hand Smoke Exposure: No Substance Use Type: Crack/Cocaine service: No Meds Allergies Allergy/AdvReac Type Severity Reaction Status Date / Time Penicillins Allergy Unknown Rash Verified 10/25/23 13:32 aspirin AdvReac Intermediate Palpitation Verified 10/25/23 13:32 s codeine AdvReac Unknown Palpitation Verified 10/25/23 13:32 s Active Medications: Current Medications Acetaminophen (Acetaminophen 325 Mg Tablet) 650 mg PO Q6H PRN PRN Reason: Pain, Mild (Pain Scale 1-3) Buprenorphine/Naloxone (Buprenorphine/Naloxone 8/2 Mg Film) 1 film SUBLINGUAL DAILY [facility] Last Admin: 11/10/23 08:39 Dose: 1 film Clonidine HCl (Clonidine Hcl 0.1 Mg Tablet) 0.1 mg PO BEDTIME PRN; Protocol PRN Reason: anxiety/insomnia Enoxaparin Sodium (Enoxaparin Sodium 40 Mg/0.4 Ml Syringe) 40 mg SUBCUT Q24H [facility] Last Admin: 11/10/23 23:26 Dose: 40 mg Famotidine (Famotidine 20 Mg Tablet) 20 mg PO BID [facility] Last Admin: 11/10/23 20:57 Dose: 20 mg Folic Acid (Folic Acid 1 Mg Tablet) 1 mg PO DAILY [facility] Last Admin: 11/10/23 08:38 Dose: 1 mg Hydroxyzine HCl (Hydroxyzine Hcl 50 Mg Tablet) 50 mg PO TID PRN PRN Reason: Anxiety Magnesium Oxide (Magnesium Oxide 400 Mg Tablet) 400 mg PO BID [facility] Last Admin: 11/10/23 20:57 Dose: 400 mg Melatonin (Melatonin 3 Mg Tablet) 6 mg PO BEDTIME PRN PRN Reason: Insomnia Morphine Sulfate (Morphine Sulfate 2 Mg/Ml Cartridge) 2 mg IVPUSH Q4H PRN; Protocol PRN Reason: Pain, Severe (Pain Scale 7-10) Ondansetron HCl (Ondansetron Hcl 4 Mg/2 Ml Vial) 4 mg IVPUSH Q8H PRN PRN Reason: Nausea and Vomiting Pharmacy Consult (Consult Rx Etoh Phenob Im/Po) 1 each MISCELLANE ONCE PRN; Protocol PRN Reason: Consult order Phenobarbital (Phenobarbital 15 Mg Tablet) 15 mg PO BID [facility]; Protocol Stop: 11/12/23 21:01 Phenobarbital (Phenobarbital 15 Mg Tablet) 15 mg PO DAILY [facility]; Protocol Stop: 11/14/23 09:01 Potassium Chloride (Potassium Chloride Packet 20 Meq Packet) 40 meq PO DAILY [facility] Last Admin: 11/10/23 08:38 Dose: 40 meq Sodium Chloride (0.9 % Sodium Chloride Flush 3 Ml Syringe) 3 ml IVFLUSH QSHIFT [facility] Last Admin: 11/10/23 20:57 Dose: 3 ml Thiamine HCl (Thiamine Hcl 100 Mg Tablet) 50 mg PO DAILY [facility] Last Admin: 11/10/23 08:38 Dose: 50 mg Home Medications Medication Instructions Recorded Confirmed Last Taken Type clonidine HCl 0.1 mg tablet 0.1 mg PO QHS PRN anxiety/insomnia 08/08/23 11/08/23 Unknown History hydroxyzine HCl 50 mg tablet 50 mg PO TID PRN Anxiety 11/08/23 11/08/23 Unknown History thiamine HCl (vitamin B1) 50 mg 50 mg PO DAILY 11/08/23 11/08/23 Unknown History tablet Physical Exam 2 Vital Signs: Vital Signs: Last Vital Signs Temp 96.8 F 11/11/23 07:28 Pulse 69 11/11/23 07:28 Resp 18 11/11/23 07:28 BP 118/70 11/11/23 07:28 Pulse Ox 97 11/11/23 07:28 O2 Del Method Room Air 11/11/23 07:28 BMI result Body Mass Index 20.6 Const: General: comfortable Nutritional Appearance: well nourished O rientation/consciousness: patient oriented x3 HEENT: Head: Yes normocephalic and Yes atraumatic Ears: hearing grossly normal bilaterally Resp: Effort & Inspection: normal respiratory effort, no audible wheezes, no cough and no respiratory distress GI: Inspection: Yes normal to inspection Palpation (GI): Soft to palpation, Tenderness to palpation present (GI) in the RUQ; Magaña's sign negative, no guarding, not rigid and Hepatomegaly present Percussion: Yes normal to percussion Auscultation: normal bowel sounds Neuro: General: patient oriented x3 Extrem: General: Yes normal to inspection Results Labs 11/09/23 04:52 11/09/23 04:52 Labs: Urine 11/08/23 Range/Units 14:20 Urine Color [place] Urine Appearance Cloudy Urine pH 7.0 (5.0-9.0) Ur Specific [place] 1.020 (1.005-1.025) Urine Protein 100 (2+) H (Neg-Trace) mg/dL Urine Glucose (UA) See Note (Negative) mg/dL All other labs normal. Assessment and Plan (1) Cholelithiasis: Qualifiers: Cholelithiasis location: gallbladder Cholecystitis presence: without cholecystitis Status: Acute (2) Dilated cbd, acquired: Status: Acute Plan 52 year old female presenting with complaints of abdominal pain in the right upper quadrant with nausea and vomiting, elevated LFTs, hepatomegally, dilated CBD, and small GS/sludge in GB. Patient has a history of alcoholic pancreatitis and evidence of hepatatic steatosis, and recently returned to drinking hard alcohol. Although symptoms may be related to cholecystitis, I suspect her symptoms more likely are due to alcoholic liver and pancreatitic disease. Symptoms seem to be improving today; if her symptoms return after eating, would consisted MRCP to evaluated CBD further. Procedures Date of Service Date of Service: 11/11/23
[2023-11-11] MEDS: PHENobarbitaL 15 MG TABLET PO ×2 (08:22→21:13)
[2023-11-11] MEDS: Famotidine 20 MG TABLET PO ×2 (08:22→21:13)
[2023-11-11] MEDS: Magnesium Oxide 400 MG TABLET PO ×2 (08:22→21:13)
[2023-11-11] MEDS: Thiamine HCL 100 MG TABLET 50 MG PO (08:23)
[2023-11-11] MEDS: 0.9 % Sodium Chloride Flush 3 ML SYRINGE IVFLUSH ×2 (08:23→21:13)
[2023-11-11] MEDS: Folic Acid 1 MG TABLET PO (08:23)
[2023-11-11] MEDS: Potassium Chloride Packet 20 MEQ PACKET 40 MEQ PO (08:23)
[2023-11-11] MEDS: Buprenorphine/Naloxone 8/2 mg FILM 1 FILM SUBLINGUAL (08:27)
[2023-11-11] MEDS: Nicotine Polacrilex 2 MG GUM BUCCAL ×2 (09:21→21:25)
--- NOTE | 2023-11-11 11:53 | P.PNIM_ITS ---
Subjective Subjective Date of Service: 11/11/23 Interval History: Slowly improving. Doing well with phenobarb protocol. Tolerating diet Review of Systems Denies chest pain Denies shortness of breath Denies nausea vomiting diarrhea Denies fever chills Physical Exam 2 Vital Signs: Vital Signs: Last Vital Signs Temp 96.8 F 11/11/23 07:28 Pulse 69 11/11/23 07:28 Resp 18 11/11/23 07:28 BP 118/70 11/11/23 07:28 Pulse Ox 97 11/11/23 07:28 O2 Del Method Room Air 11/11/23 07:28 BMI result Body Mass Index 20.6 Const: Other: Somnolent but arousable (phenobarb) Resp: Other: Clear to auscultation bilaterally no rales rhonchi or wheezes Cardio: Other: No S4; positive S1-S2; no S3 murmurs rubs or gallops GI: Other: Soft nontender nondistended normoactive bowel sounds Extrem: Other: No edema bilaterally Objective Data Active Medications Acetaminophen (Acetaminophen 325 Mg Tablet) 650 mg PO Q6H PRN PRN Reason: Pain, Mild (Pain Scale 1-3) Buprenorphine/Naloxone (Buprenorphine/Naloxone 8/2 Mg Film) 1 film SUBLINGUAL DAILY [facility] Last Admin: 11/11/23 08:27 Dose: 1 film Documented By: RILEY Clonidine HCl (Clonidine Hcl 0.1 Mg Tablet) 0.1 mg PO BEDTIME PRN; Protocol PRN Reason: anxiety/insomnia Enoxaparin Sodium (Enoxaparin Sodium 40 Mg/0.4 Ml Syringe) 40 mg SUBCUT Q24H [facility] Last Admin: 11/10/23 23:26 Dose: 40 mg Documented By: BRIANNA Famotidine (Famotidine 20 Mg Tablet) 20 mg PO BID [facility] Last Admin: 11/11/23 08:22 Dose: 20 mg Documented By: RILEY Folic Acid (Folic Acid 1 Mg Tablet) 1 mg PO DAILY [facility] Last Admin: 11/11/23 08:23 Dose: 1 mg Documented By: RILEY Hydroxyzine HCl (Hydroxyzine Hcl 50 Mg Tablet) 50 mg PO TID PRN PRN Reason: Anxiety Magnesium Oxide (Magnesium Oxide 400 Mg Tablet) 400 mg PO BID [facility] Last Admin: 11/11/23 08:22 Dose: 400 mg Documented By: RILEY Melatonin (Melatonin 3 Mg Tablet) 6 mg PO BEDTIME PRN PRN Reason: Insomnia Morphine Sulfate (Morphine Sulfate 2 Mg/Ml Cartridge) 2 mg IVPUSH Q4H PRN; Protocol PRN Reason: Pain, Severe (Pain Scale 7-10) Nicotine Polacrilex (Nicotine Polacrilex 2 Mg Gum) 2 mg BUCCAL Q2H PRN PRN Reason: Nicotine Cravings Last Admin: 11/11/23 09:21 Dose: 2 mg Documented By: RILEY Ondansetron HCl (Ondansetron Hcl 4 Mg/2 Ml Vial) 4 mg IVPUSH Q8H PRN PRN Reason: Nausea and Vomiting Pharmacy Consult (Consult Rx Etoh Phenob Im/Po) 1 each MISCELLANE ONCE PRN; Protocol PRN Reason: Consult order Phenobarbital (Phenobarbital 15 Mg Tablet) 15 mg PO BID [facility]; Protocol Stop: 11/12/23 21:01 Last Admin: 11/11/23 08:22 Dose: 15 mg Documented By: RILEY Phenobarbital (Phenobarbital 15 Mg Tablet) 15 mg PO DAILY [facility]; Protocol Stop: 11/14/23 09:01 Potassium Chloride (Potassium Chloride Packet 20 Meq Packet) 40 meq PO DAILY [facility] Last Admin: 11/11/23 08:23 Dose: 40 meq Documented By: RILEY Sodium Chloride (0.9 % Sodium Chloride Flush 3 Ml Syringe) 3 ml IVFLUSH QSHIFT [facility] Last Admin: 11/11/23 08:23 Dose: 3 ml Documented By: RILEY Thiamine HCl (Thiamine Hcl 100 Mg Tablet) 50 mg PO DAILY [facility] Last Admin: 11/11/23 08:23 Dose: 50 mg Documented By: RILEY Labs 11/09/23 04:52 11/09/23 04:52 Microbiology Microbiology Results: Microbiology 11/08/23 Unknown Urine Culture - Final Urine clean catch - Urine peguero top Escherichia coli Assessment and Plan (1) Alcohol withdrawal: Status: Acute (2) Right sided abdominal pain: Status: Acute Plan Pt is a 52-year-old female with a PMH significant for?alcohol use disorder with hx of alcoholic pancreatitis and alcohol with withdrawal seizures and polysubstance use disorder who presents to the ED with?right-sided abdominal pain, nausea, vomiting, and diarrhea times 5-6 days. Pt will be admitted to the hospital for treatment further evaluation of acute alcohol withdrawal and right- sided abdominal pain. 1.Acute alcohol withdrawal Tolerating phenobarb protocol; less somnolent this a.m. CIWA 0 without seizure activity -continue phenobarb protocol as ordered -monitor on CIWA 2.Abd pain Appreciate surgical input. No acute right upper quadrant issues -DC antibiotics -trend LFTs 3.Hypomagnesemia Repleted with IV magnesium; now normal -follow renals/divalents/Mag in am 4.Polysubstance use disorder -Continue Suboxone -Addiction medicine consult appreciated Full Code Lovenox Patient requires ongoing hospitalization for phenobarb protocol to treat alcohol withdrawal acutely. Also empiric antibiotics pending surgical consult Quality Stroke Does the patient have a stroke diagnosis?: No VTE Prior VTE?: No VTE Risk Level:: Medical - moderate - high VTE Device Contraindication: Treatment Not Indicated VTE Drug Contraindication: N/A - Med Ordered
--- NOTE | 2023-11-11 14:05 | MHC.RECOVRN ---
Met with pt to follow up and provide support. Pt laying in bed, asleep, wakes to voice, engages in conversation. Further discussed/educated pt on CSS level of care, answered pts questions, pt now declines referral due to rules and regulations. Discussed other options including PHP/IOP, pt interested. Pt provided with written resources including PHP/IOP information, pt plans to call to schedule intake. Pt reports she will also continue working with therapist, Cammy, at [facility]. Pt denies other questions or concerns for t/w.
[2023-11-11 15:10] VITALS: BP 91/53; PULSE 60; RESP 20; TEMP 36.7; O2SAT 96
[2023-11-11 15:47] VITALS: BP 112/67; PULSE 79; RESP 20; O2SAT 96
[2023-11-11 19:25] VITALS: BP 100/58; PULSE 63; RESP 18; TEMP 36.7; O2SAT 96
[2023-11-11] MEDS: Enoxaparin Sodium 40 MG/0.4 ML SYRINGE SUBCUT (21:13)
[2023-11-12 04:00] VITALS: BP 101/63; PULSE 63; RESP 16; TEMP 36.9; O2SAT 97
[2023-11-12 07:03] LABS: MANUAL DIFF FLAG NO
[2023-11-12 07:14] LABS: Basophils Absolute Auto 0.1 X10*3/uL (0.0-0.2); Basophils Percent Auto 0.7 % (0-2); Eosinophils Absolute Auto 0.2 X10*3/uL (0.0-0.4); Eosinophils Percent Auto 1.9 % (0-4); Hematocrit 35.1 % (37.0-47.0); Hemoglobin 12.1 g/dl (12.0-16.0); Imm Gran Abs Auto 0.04 X10*3/uL (0.00-0.03); Imm Gran Pct Auto 0.4 % (0.0-0.4); Lymphocytes Absolute Auto 2.5 X10*3/uL (1.2-4.9); Lymphocytes Percent Auto 26.8 % (20-40); Mean Corpuscular HGB Conc 34.5 g/dl (31.0-35.0); Mean Corpuscular Hemoglobin 36.2 pg (27.0-33.0); Mean Corpuscular Volume 105.1 fL (80.0-98.0); Monocytes Absolute Auto 0.8 X10*3/uL (0.1-1.2); Monocytes Percent Auto 8.2 % (2-11); Neutrophils Absolute Auto 5.8 x10*3/uL (2.0-8.3); Red Blood Count 3.34 X10*6/uL (4.20-5.50); Red Cell Distribution Width 14.1 % (11.0-16.0); White Blood Count 9.4 X10*3/uL (4.8-10.8)
[2023-11-12 07:18] LABS: Platelet Count 97 X10*3/uL (160-400)
[2023-11-12 07:26] LABS: Alanine Aminotransferase 17 U/L (0-31); Albumin Level 2.5 g/dL (3.5-5.0); Alkaline Phosphatase 208 U/L (39-117); Anion Gap 9 (12-20); Aspartate Amino Transferase 74 U/L (5-31); Bilirubin Total 2.3 mg/dL (0.0-1.0); Blood Urea Nitrogen 6 mg/dL (9-16); Calcium 8.2 mg/dL (8.4-10.2); Carbon Dioxide 28 mmol/L (22-29); Chloride 104 mmol/L (96-108); Creatinine Clr Calc Pharmacy 98.5; Estimated Glomerular Filt Rate > 60; Glucose Fasting 81 mg/dL (60-99); Potassium 3.6 mmol/L (3.3-5.1); Sodium 137 mmol/L (135-145); Total Protein 5.6 g/dL (6.5-8.0)
[2023-11-12 07:27] VITALS: BP 123/72; PULSE 71; RESP 18; TEMP 36.4; O2SAT 97
[2023-11-12] MEDS: Potassium Chloride Packet 20 MEQ PACKET 40 MEQ PO (08:17)
[2023-11-12] MEDS: PHENobarbitaL 15 MG TABLET PO (08:17)
[2023-11-12] MEDS: Famotidine 20 MG TABLET PO (08:18)
[2023-11-12] MEDS: Thiamine HCL 100 MG TABLET 50 MG PO (08:18)
[2023-11-12] MEDS: Magnesium Oxide 400 MG TABLET PO (08:18)
[2023-11-12] MEDS: Folic Acid 1 MG TABLET PO (08:19)
[2023-11-12] MEDS: Buprenorphine/Naloxone 8/2 mg FILM 1 FILM SUBLINGUAL (08:19)
[2023-11-12] MEDS: 0.9 % Sodium Chloride Flush 3 ML SYRINGE IVFLUSH (08:19)
--- NOTE | 2023-11-12 10:08 | P.PNGS_ITS ---
Subjective Subjective Date of Service: 11/12/23 Patient reports: feels better and tolerating a regular diet Physical Exam 2 Vital Signs: Vital Signs: Last Vital Signs Temp 97.5 F 11/12/23 07:27 Pulse 71 11/12/23 07:27 Resp 18 11/12/23 07:27 BP 123/72 11/12/23 07:27 Pulse Ox 97 11/12/23 07:27 O2 Del Method Room Air 11/12/23 07:27 BMI result Body Mass Index 20.6 Const: General: no acute distress Nutritional Appearance: well nourished Orientation/consciousness: patient oriented x3 Resp: Effort & Inspection: normal respiratory effort, no audible wheezes, no cough and no respiratory distress GI: Inspection: Yes normal to inspection Palpation (GI): Soft to palpation, nontender, no guarding and not rigid Neuro: General: patient oriented x3 Extrem: General: No edema Objective Data Active Medications Acetaminophen (Acetaminophen 325 Mg Tablet) 650 mg PO Q6H PRN PRN Reason: Pain, Mild (Pain Scale 1-3) Buprenorphine/Naloxone (Buprenorphine/Naloxone 8/2 Mg Film) 1 film SUBLINGUAL DAILY [facility] Last Admin: 11/12/23 08:19 Dose: 1 film Documented By: ROBBIE Clonidine HCl (Clonidine Hcl 0.1 Mg Tablet) 0.1 mg PO BEDTIME PRN; Protocol PRN Reason: anxiety/insomnia Enoxaparin Sodium (Enoxaparin Sodium 40 Mg/0.4 Ml Syringe) 40 mg SUBCUT Q24H [facility] Last Admin: 11/11/23 21:13 Dose: 40 mg Documented By: BRIANNA Famotidine (Famotidine 20 Mg Tablet) 20 mg PO BID [facility] Last Admin: 11/12/23 08:18 Dose: 20 mg Documented By: ROBBIE Folic Acid (Folic Acid 1 Mg Tablet) 1 mg PO DAILY [facility] Last Admin: 11/12/23 08:19 Dose: 1 mg Documented By: ROBBIE Hydroxyzine HCl (Hydroxyzine Hcl 50 Mg Tablet) 50 mg PO TID PRN PRN Reason: Anxiety Magnesium Oxide (Magnesium Oxide 400 Mg Tablet) 400 mg PO BID [facility] Last Admin: 11/12/23 08:18 Dose: 400 mg Documented By: ROBBIE Melatonin (Melatonin 3 Mg Tablet) 6 mg PO BEDTIME PRN PRN Reason: Insomnia Morphine Sulfate (Morphine Sulfate 2 Mg/Ml Cartridge) 2 mg IVPUSH Q4H PRN; Protocol PRN Reason: Pain, Severe (Pain Scale 7-10) Nicotine Polacrilex (Nicotine Polacrilex 2 Mg Gum) 2 mg BUCCAL Q2H PRN PRN Reason: Nicotine Cravings Last Admin: 11/11/23 21:25 Dose: 2 mg Documented By: BRIANNA Ondansetron HCl (Ondansetron Hcl 4 Mg/2 Ml Vial) 4 mg IVPUSH Q8H PRN PRN Reason: Nausea and Vomiting Pharmacy Consult (Consult Rx Etoh Phenob Im/Po) 1 each MISCELLANE ONCE PRN; Protocol PRN Reason: Consult order Phenobarbital (Phenobarbital 15 Mg Tablet) 15 mg PO BID [facility]; Protocol Stop: 11/12/23 21:01 Last Admin: 11/12/23 08:17 Dose: 15 mg Documented By: ROBBIE Phenobarbital (Phenobarbital 15 Mg Tablet) 15 mg PO DAILY [facility]; Protocol Stop: 11/14/23 09:01 Potassium Chloride (Potassium Chloride Packet 20 Meq Packet) 40 meq PO DAILY [facility] Last Admin: 11/12/23 08:17 Dose: 40 meq Documented By: ROBBIE Sodium Chloride (0.9 % Sodium Chloride Flush 3 Ml Syringe) [facility] Last Admin: 11/12/23 08:19 Dose: 3 ml Documented By: ROBBIE Thiamine HCl (Thiamine Hcl 100 Mg Tablet) 50 mg PO DAILY [facility] Last Admin: 11/12/23 08:18 Dose: 50 mg Documented By: ROBBIE Labs 11/12/23 05:35 11/12/23 05:35 Labs: Laboratory Results - last 24 hr 11/12/23 05:35 MCV 105.1 H MCH 36.2 H MCHC 34.5 RDW 14.1 Plt Count 97 L MPV 13.0 H Immature Gran % (Auto) 0.4 Neut % (Auto) 62.0 Lymph % (Auto) 26.8 [place] % (Auto) 8.2 Eos % (Auto) 1.9 Baso % (Auto) 0.7 Lymph # (Auto) 2.5 [place] # (Auto) 0.8 Eos # (Auto) 0.2 Baso # (Auto) 0.1 Abs Immat Gran (auto) 0.04 H Absolute Neuts (auto) 5.8 Absolute Nucleated RBC 0.000 Nucleated RBC % (auto) 0.0 Anion Gap 9 L Estim Creat Clear Calc 98.5 Estimated GFR > 60 Fasting Glucose 81 Calcium 8.2 L Total Bilirubin 2.3 H AST 74 H ALT 17 Alkaline Phosphatase 208 H Total Protein 5.6 L Albumin 2.5 L Microbiology Microbiology Results: Microbiology 11/08/23 Unknown Urine Culture - Final Urine clean catch - Urine peguero top Escherichia coli Procedures Date of Service Date of Service: 11/12/23 Progress Note: A&P Assessment and plan (1) Cholelithiasis: Status: Acute Plan Patient doing well, tolerating po. Plan for discharge today. No surgery follow up required at this time. Time Spent With Patient Time: Total time managing care of this patient today ____ minutes. Quality Stroke Does the patient have a stroke diagnosis?: No VTE Prior VTE?: No VTE Risk Level:: Medical - moderate - high VTE Device Contraindication: Treatment Not Indicated VTE Drug Contraindication: N/A - Med Ordered
--- NOTE | 2023-11-12 10:45 | MHC.CM.PN ---
EMR reviewed. Per MD rounds patient is medically cleared for dc home self care. Patient's sister will provide transportation @ 1200 pm. RN aware.
--- NOTE | 2023-11-12 11:40 | P.DS_ITS ---
DS: Providers Provider Date of Service: 11/12/23 Date of admission: 11/08/23 22:23 Date of discharge: 11/12/23 Primary care physician: Unknown Physician Consults: 11/08/23 22:23 Addiction Medicine Routine Consulting Provider: Addiction Covering Reason for consultation: alcohol and ?substance use disorder 11/10/23 12:24 Consult to General Surgery Routine Consulting Provider: [facility] General Surgeons Reason for consultation: abn gallbag on imaging Has provider been notified: Yes DS: Diagnosis Discharge Diagnosis (1) Alcohol withdrawal: Status: Acute (2) Right sided abdominal pain: Status: Acute (3) Alcohol use disorder, severe, dependence: Status: Acute DS: Summary Hospital Course Hospital Course: 52-year-old female with a PMH significant for?alcohol use disorder with hx of alcoholic pancreatitis and alcohol with withdrawal seizures and polysubstance use disorder who presents to the ED with?right-sided abdominal pain, nausea, vomiting, and diarrhea times 5-6 days. Patient states she has an alcoholic and has alcoholic pancreatitis, which she believes she is experiencing right now. Reports having 3 withdrawal seizures recently and presented to [facility] where she was treated for alcoholic pancreatitis. Unclear exactly when this was, as patient alternatively indicates it was either a few days ago or a few months ago. Patient states abdominal pain is mostly located in her RUQ and a separate, sharp/shooting pain on her right lower side. Reports drinking approximately 1 pt of 100 proof vodka daily with last drink earlier today around noon or 01:00 o'clock. Denies auditory or visual hallucinations. No fever, chills. Denies chest pain/pressure, palpitations. In the ED pt was afebrile, but tachycardic up to 99. Labs were significant for leukocytosis of 13.5, magnesium 1.3, bilirubin 2.9, AST 188, ALT 38, alk-phos 315, and albumin 2.8. UA negative for UTI. Tox screen positive for cocaine at of alcohol 168. Tested negative for influenza type a and B, RSV, COVID. CT of abdomen and pelvis found mild cecal wall thickening with minimal adjacent stranding, question of focal infection versus inflammatory process versus underlying lesion. Also found trace pelvic free fluid with no organized collection or abscess; hepatomegaly and steatosis; and mildly dilated gallbladder with prominence of the CBD, possibly indicating distal common bile duct obstruction. Pt was treated with IVF, ondansetron, ceftriaxone, morphine, Mag sulfate, thiamine, and started on phenobarb protocol. Pt will be admitted to the hospital for treatment further evaluation of acute alcohol withdrawal and right-sided abdominal pain. Hospital course Patient admitted to general medical floor on CIWA protocol with phenobarb. She continued to do well over the next 48-72 hours and her diet was advanced without issue. There was some concern about a mildly dilated gallbladder with increased common bile duct; she was seen by surgery who felt this was a non issue. At the time of discharge her clinical course does not support any acute gallbladder issues. At this point in time she has been seen by addiction Medicine and will be followed up there for her Suboxone and to seek detox for alcohol. Time Attestation Discharge Coordination Time: discharge time of ____ minutes Quality: Safe Use of Opioids Does Pt have an Active Cancer Diagnosis on the Problem List?: No Quality: Stroke Does the patient have a stroke diagnosis?: No Physical Exam Vital Signs: Vital Signs: Last Vital Signs Temp 97.5 F 11/12/23 07:27 Pulse 71 11/12/23 07:27 Resp 18 11/12/23 07:27 BP 123/72 11/12/23 07:27 Pulse Ox 97 11/12/23 07:27 O2 Del Method Room Air 11/12/23 07:27 BMI result Body Mass Index 20.6 Const: Other: Somnolent but arousable (phenobarb) Resp: Other: Clear to auscultation bilaterally no rales rhonchi or wheezes Cardio: Other: No S4; positive S1-S2; no S3 murmurs rubs or gallops GI: Other: Soft nontender nondistended normoactive bowel sounds Extrem: Other: No edema bilaterally DS: Data Data Completed and Pending Labs on day of discharge: Laboratory Results - last 24 hr 11/12/23 05:35 WBC 9.4 RBC 3.34 L Hgb 12.1 Hct 35.1 L MCV 105.1 H MCH 36.2 H MCHC 34.5 RDW 14.1 Plt Count 97 L MPV 13.0 H Immature Gran % (Auto) 0.4 Neut % (Auto) 62.0 Lymph % (Auto) 26.8 [place] % (Auto) 8.2 Eos % (Auto) 1.9 Baso % (Auto) 0.7 Lymph # (Auto) 2.5 [place] # (Auto) 0.8 Eos # (Auto) 0.2 Baso # (Auto) 0.1 Abs Immat Gran (auto) 0.04 H Absolute Neuts (auto) 5.8 Absolute Nucleated RBC 0.000 Nucleated RBC % (auto) 0.0 Sodium 137 Potassium 3.6 Chloride 104 Carbon Dioxide 28 Anion Gap 9 L BUN 6 L Creatinine 0.62 Estim Creat Clear Calc 98.5 Estimated GFR > 60 Fasting Glucose 81 Calcium 8.2 L Total Bilirubin 2.3 H AST 74 H ALT 17 Alkaline Phosphatase 208 H Total Protein 5.6 L Albumin 2.5 L Discharge Plan Discharge Anticipated Discharge Date/Time: 11/12/23 11:38 Patient Disposition: Home, Self-Care Discharge Diagnosis: Alcohol withdrawal Referrals: Physician,Unknown J [Primary Care Provider] - 1 Week Discharge Medications: Continued potassium chloride 40 mEq/15 mL liquid 40 meq PO DAILY Qty: 473 0RF magnesium oxide 400 mg magnesium tablet 400 mg PO BID Qty: 180 3RF hydroxyzine HCl 50 mg Tablet 50 mg PO TID PRN (Reason: Anxiety) thiamine HCl (vitamin B1) 50 mg tablet 50 mg PO DAILY clonidine HCl 0.1 mg tablet 0.1 mg PO QHS PRN (Reason: anxiety/insomnia) ondansetron 4 mg tablet,disintegrating 4 mg PO Q8H PRN (Reason: nausea and vomiting) Qty: 30 0RF buprenorphine-naloxone [Suboxone] 8-2 mg film 1 film sublingual DAILY Qty: 7 0RF folic acid 1 mg tablet 1 mg PO DAILY Qty: 30 3RF Discharge Orders: Discharge Order (Routine); Ordered 11/12/23 Ordered By: Murray Lara Diet: Advance to usual diet Activity on Discharge: As tolerated Stand Alone Forms: Patient Portal Discharge page Care Plan Goals: Resume all meds as taken before hospital Health Concerns: Avoid alcohol at all cost Plan of Treatment: Message left with [facility]. They should reach out to you but in turn you should call them. They have been made aware of today's dosing Assessment: See discharge summary
--- NOTE | 2023-11-12 12:49 | P.PNADD_ITS ---
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 This feature writer unaware of programming like this, however patient no longer interested in this level of care. She reports feeling better and it has been 4 days since her last drink. She has no questions, aside from ensuring suboxone rx is sent to pharmacy--t/w reassured patient it would be sent in and encouraged to call [facility] once home to schedule follow up appt Review of Systems Acute medical concerns: Yes Medical Review of Systems: unchanged Mental Status Exam Mental Status Exam Patient Appearance: Appropriate Level of Consciousness: Awake and Appropriate Patient Behavior: Appropriate and Talkative Mood Description: Calm Affect Description: Calm Speech Pattern: Clear Judgement: Fair Diagnostics Vital Signs (24Hr): Vital Signs - 24 hr 11/11/23 15:10 11/11/23 15:47 11/11/23 19:25 Temperature 98.1 F 98.1 F Pulse Rate 60 79 63 Respiratory Rate 20 20 18 Blood Pressure 91/53 L 112/67 100/58 L Pulse Oximetry 96 96 96 Oxygen Delivery Method Room Air Room Air Room Air 11/12/23 04:00 11/12/23 07:27 Temperature 98.5 F 97.5 F Pulse Rate 63 71 Respiratory Rate 16 18 Blood Pressure 101/63 123/72 Pulse Oximetry 97 97 Oxygen Delivery Method Room Air Room Air BMI result Body Mass Index 20.6 Labs 11/12/23 05:35 11/12/23 05:35 Labs: Laboratory Results - last 48 hr 11/12/23 05:35 WBC 9.4 RBC 3.34 L Hgb 12.1 Hct 35.1 L MCV 105.1 H MCH 36.2 H MCHC 34.5 RDW 14.1 Plt Count 97 L MPV 13.0 H Immature Gran % (Auto) 0.4 Neut % (Auto) 62.0 Lymph % (Auto) 26.8 [place] % (Auto) 8.2 Eos % (Auto) 1.9 Baso % (Auto) 0.7 Lymph # (Auto) 2.5 [place] # (Auto) 0.8 Eos # (Auto) 0.2 Baso # (Auto) 0.1 Abs Immat Gran (auto) 0.04 H Absolute Neuts (auto) 5.8 Absolute Nucleated RBC 0.000 Nucleated RBC % (auto) 0.0 Sodium 137 Potassium 3.6 Chloride 104 Carbon Dioxide 28 Anion Gap 9 L BUN 6 L Creatinine 0.62 Estim Creat Clear Calc 98.5 Estimated GFR > 60 Fasting Glucose 81 Calcium 8.2 L Total Bilirubin 2.3 H AST 74 H ALT 17 Alkaline Phosphatase 208 H Total Protein 5.6 L Albumin 2.5 L Imaging Radiology Impressions: ITS Impressions Abdomen/Pelvis CT 11/08/23 20:16 IMPRESSION: 1. Mild cecal wall thickening with minimal adjacent stranding. Findings could represent a focal infectious or inflammatory process. An underlying lesion cannot be excluded in the appropriate clinical setting. No additional bowel wall thickening or inflammatory change. Unremarkable appendix. 2. Trace pelvic free fluid. No organized fluid collection or abscess formation. No intra-abdominal free air. 3. Hepatomegaly and steatosis. No hepatic parenchymal lesion or biliary ductal dilatation. 4. Mildly dilated gallbladder with prominence of the common bile duct. Findings could indicate a distal common bile duct obstruction, including a nonradiopaque stone or ampullary lesion. 5. Subacute/chronic appearing lateral right 10th rib fracture with mild new bone/callus formation. Fleischner guidelines were followed. Abdomen Ultrasound 11/08/23 22:47 IMPRESSION: 1. Corresponding with the accompanying CT findings, there is gallbladder hydrops, with mild gallbladder wall edema, common bile duct dilatation and left hepatic ductal dilatation. Mild cholelithiasis is seen, and no focal choledocholith is seen. A distal common bile duct obstruction is suspected. 2. Again, there is hepatic steatosis. 3. There is reversal of flow of the main portal vein, suggesting portal hypertension. 4. Technically limited ultrasound examination of the pancreas. Medications Allergies Allergies Allergy/AdvReac Type Severity Reaction Status Date / Time Penicillins Allergy Unknown Rash Verified 10/25/23 13:32 aspirin AdvReac Intermediate Palpitation Verified 10/25/23 13:32 s codeine AdvReac Unknown Palpitation Verified 10/25/23 13:32 s Assessment & Plan Assessment & Plan (1) Alcohol use disorder, severe, dependence: Status: Acute Code(s): F10.20 - Alcohol dependence, uncomplicated Assessment and Plan: * patient reports she wants to call facilities on her own and find one that meets her needs * encouraged patient to continue eating and taking vitamins (2) Opioid use disorder: Status: Acute Code(s): F11.90 - Opioid use, unspecified, uncomplicated Assessment and Plan: * suboxone rx sent in * patient to call and schedule follow up appt Total time managing care of this patient today _30__ minutes.
== END 2023-11-12 12:39 | disposition home or self-care (01) | DRG 773 ==
LOC: HO.ED 20:51 → HO.EDOVER 22:28 → HO.S3 11-09 10:49
PROVIDERS: Registered Nurse Emergency; Admitting Provider Student in an Organized Health Care Education/Training Program; Emergency Provider Emergency Medicine Emergency Medical Services; Visit Provider Hospitalist
DX: F10.239 Alcohol dependence with withdrawal, unspecified (principal); F11.20 Opioid dependence, uncomplicated; E88.09 Other disorders of plasma-protein metabolism, not elsewhere classified; E83.42 Hypomagnesemia; F17.210 Nicotine dependence, cigarettes, uncomplicated; Z71.6 Tobacco abuse counseling; Y90.6 Blood alcohol level of 120-199 mg/100 ml; Z20.822 Contact with and (suspected) exposure to COVID-19; Z79.899 Other long term (current) drug therapy
CPT/HCPCS: 0241U; 36415; 74177; 76705; 80048; 80053; 80307; 81001; 83690; 83735; 84702; 85007; 85025; 85027; 85610; 87086; 87088; 87186; 99285; C9113; J0696; J0737; J1650; J2270; J2405; J2560; J3411; J3475; P9047; Q9967

== ENCOUNTER → 2023-11-08 22:23 | Outpatient (BNV) | payer MEDICAID, SELFPAY | PROVIDERS: Admitting Provider Student in an Organized Health Care Education/Training Program; Emergency Provider Emergency Medicine Emergency Medical Services; Visit Provider Surgery | DX: K80.20 Calculus of gallbladder without cholecystitis without obstruction (principal) | CPT/HCPCS: 99222; 99232 ==

== ENCOUNTER → 2023-11-08 22:23 | Outpatient (BNV) | payer MEDICAID, SELFPAY | PROVIDERS: Admitting Provider Student in an Organized Health Care Education/Training Program; Emergency Provider Emergency Medicine Emergency Medical Services; Visit Provider Student in an Organized Health Care Education/Training Program | DX: F10.230 Alcohol dependence with withdrawal, uncomplicated (principal); R10.9 Unspecified abdominal pain | CPT/HCPCS: 99223; 99233; 99238 ==

== ENCOUNTER → 2023-11-08 22:23 | Outpatient (BNV) | payer OTHER, SELFPAY | PROVIDERS: Admitting Provider Student in an Organized Health Care Education/Training Program; Emergency Provider Emergency Medicine Emergency Medical Services; Visit Provider Nurse Practitioner Psychiatric/Mental Health | DX: F10.20 Alcohol dependence, uncomplicated (principal); F11.90 Opioid use, unspecified, uncomplicated | CPT/HCPCS: 99231 ==

== ENCOUNTER 2023-11-20 09:59 | Outpatient (AMB) | payer MEDICAID, SELFPAY ==
--- NOTE | 2023-11-20 10:12 | A.OFFVISCC_ITS ---
Intake Vital Signs 11/20/23 10:17 BP 110/70 Blood Pressure Location Lt radial Position Sitting Pulse 86 Pulse Source Pulse Oximeter Pulse Oximetry (%) 95 Oxygen Delivery Method Room Air Intake Visit Reasons: mat Intake Note: the patient presents for a mat visit Buy Boat Operator Required: No Allergies Penicillins Allergy (Unknown, Verified 11/20/23 10:18) Rash aspirin Adverse Reaction (Intermediate, Verified 11/20/23 10:18) Palpitations codeine Adverse Reaction (Unknown, Verified 11/20/23 10:18) Palpitations Do you need a note to return to daycare/school/sports/work: No HPI mat HPI Details Patient presents for MAT visit Recently discharged from [facility] [facility] for alcohol withdrawal management and hypomagnesemia Reports she was two days without drinking alcohol at home, but started drinking again because it was a habit She identifies aggravation as a trigger for her desire to drink She has not been drinking any nips, states she has been drinking the small bottles of wine and has 1-2 a day to keep the shakes away She reports cocaine use has been minimal, had purchased a $20 bag when she was discharged and still has some left She reports she has been using her fentanyl test strips on the cocaine She has gone to 2 AA meetings since discharge has found them helpful and plans on attending one later this evening She reports sleep has been good , and her appetite has improved since her hospital stay SHe is actively working on getting disability, and is also working on establishing care with a PCP office in [facility] Medical History (Updated 11/11/23 @ 08:42 by Durga Flores MD) Pancreatitis Polysubstance use disorder Social History Household Members: Family Housing: House Do you presently have visiting nurse or other home services: No Alcohol intake: current Alcohol intake frequency: 3 or more drinks per day Alcohol type: hard liquor Patient Tobacco Use Status: Current everyday Tobacco user Tobacco use type: Cigarette Second Hand Smoke Exposure: No Substance Use Type: Crack/Cocaine service: No Review of Systems Const Reports as per HPI Physical Exam Vital Signs: Last Vital Signs Pulse 86 11/20/23 10:17 BP 110/70 11/20/23 10:17 Pulse Ox 95 11/20/23 10:17 Oxygen Delivery Method Room Air 11/20/23 10:17 Const General: cooperative and no acute distress Resp Effort & Inspection: normal respiratory effort and able to speak in complete sentences Psych Appearance: grossly normal Mental Status: mental status grossly normal Speech and movement: Normal speech and movement present and Clear speech present Affect: Labile affect present Attitude: cooperative Thought process: Normal thought process present Results AMB 14 Panel Urine Drug Screen Urine Marijuana (THC) Negative Last Edit by Francisca Murdock CMA on 11/20/23 10:36 Urine Cocaine Positive Last Edit by Francisca Murdock CMA on 11/20/23 10:36 Urine Morphine Negative Last Edit by Francisca Murdock CMA on 11/20/23 10:36 Urine Methamphetamine Negative Last Edit by Francisca Murdock CMA on 11/20/23 10:36 Urine Amphetamine Negative Last Edit by Francisca Murdock CMA on 11/20/23 10:3 6 Urine Benzodiazepine Negative Last Edit by Francisca Murdock CMA on 11/20/23 10:36 Urine Barbiturates Positive Last Edit by Francisca Murdock CMA on 11/20/23 10: 36 Urine Methadone Negative Last Edit by Francisca Murdock CMA on 11/20/23 10:36 Urine Buprenorphine Positive Last Edit by Francisca Murdock CMA on 11/20/23 10 :36 Urine Tricyclic Antidepressant Negative Last Edit by Francisca Murdock CMA on 11/20/23 10:36 Urine MDMA Negative Last Edit by Francisca Murdock CMA on 11/20/23 10:36 Urine Oxycodone Negative Last Edit by Francisca Murdcok CMA on 11/20/23 10:36 Urine Phencyclidine Negative Last Edit by Francisca Murdock CMA on 11/20/23 10 :36 Urine Propoxyphene Negative Last Edit by Francisca Murdock CMA on 11/20/23 10: 36 Results Reviewed Results Reviewed: Laboratory Last Values POC Urine Buprenorphine Positive 11/20/23 10:35 POC Urine Morphine Negative 11/20/23 10:35 POC Urine Oxycodone Negative 11/20/23 10:35 POC Urine Methadone Negative 11/20/23 10:35 POC Urine Propoxyphene Negative 11/20/23 10:35 POC Urine Barbiturates Positive 11/20/23 10:35 POC U Tricyclic Antidpr Negative 11/20/23 10:35 POC Urine PCP Negative 11/20/23 10:35 POC Ur Amphetamines Negative 11/20/23 10:35 POC Ur Methamphetamine Negative 11/20/23 10:35 POC Urine MDMA Negative 11/20/23 10:35 POC Ur Benzodiazepine Negative 11/20/23 10:35 POC Urine Cocaine Positive 11/20/23 10:35 POC Ur Marijuana (THC) Negative 11/20/23 10:35 Assessment & Plan Assessment & Plan (1) Alcohol use disorder, severe, dependence: Code(s): F10.20 - Alcohol dependence, uncomplicated Plan: -Recovery supports information provided -Set goal with her to only drink wine if she drinks, to not escalate to hard alcohol -Provided her with information for IOP/PHP through [facility] -Harm reduction discussion -Gabapentin rx sent to help with anxiety associated with cutting back on alcohol. -Discussed with her to measure her wine intake so a plan could be made for decrease (2) Opioid use disorder: Code(s): F11.90 - Opioid use, unspecified, uncomplicated Plan: -No refill for suboxone necessary at this time, pt to call office when she is due for refill (3) Cocaine use disorder: Code(s): F14.10 - Cocaine abuse, uncomplicated Plan: -Harm reduction discussion (4) Hypomagnesemia: Code(s): E83.42 - Hypomagnesemia Plan: -Repeat magnesium ordered to check her levels post discharge Orders: Orders AMB 14 Panel Urine Drug Screen Today Z51.81 - Encounter for therapeutic drug level monitoring Comprehensive Met. Panel Today F10.20 - Alcohol dependence, uncomplicated Magnesium Today E83.42 - Hypomagnesemia Medications: New gabapentin 100 mg PO TID PRN 30 caps 0RF anxiety Coding Level of Care Code Est Pt Level 4 (72480) Diagnoses Alcohol use disorder, severe, dependence F10.20 Opioid use disorder F11.90 Cocaine use disorder F14.10 Hypomagnesemia E83.42
[2023-11-20 10:17] VITALS: BP 110/70; PULSE 86; O2SAT 95
== END 2023-11-20 11:04 | disposition home or self-care (01) ==
PROVIDERS: Visit Provider Nurse Practitioner Family
DX: F10.20 Alcohol dependence, uncomplicated (principal); F11.90 Opioid use, unspecified, uncomplicated; F14.10 Cocaine abuse, uncomplicated; E83.42 Hypomagnesemia
CPT/HCPCS: 99214

== ENCOUNTER → 2023-11-20 09:59 | Outpatient (BNVA) | payer MEDICAID, SELFPAY | PROVIDERS: Visit Provider Nurse Practitioner Family | DX: F10.20 Alcohol dependence, uncomplicated (principal); F11.20 Opioid dependence, uncomplicated; F14.10 Cocaine abuse, uncomplicated; E83.42 Hypomagnesemia | CPT/HCPCS: 80305; 99212 ==

== ENCOUNTER 2023-12-07 14:59 | Emergency (ER) | payer MEDICAID, SELFPAY ==
[2023-12-07 15:11] VITALS: BP 127/73; PULSE 90; RESP 18; TEMP 37.1; O2SAT 96; BMI 21.8
--- NOTE | 2023-12-07 15:13 | ED.GENADULT ---
HPI - General Adult General Chief complaint: General Medical Stated complaint: swollen legs, gallbladder problems Time Seen by Provider: 12/07/23 19:58 Source: patient Mode of arrival: ambulatory Limitations: no limitations History of Present Illness HPI narrative: Patient alcoholic had decrease the alcohol use was seen here last month for abdominal pain CT scan that showed gallstones and chronic liver disease comes here as legs are swollen for last 1 week and not taking any diuretic. Also feels abdominal fullness nausea no vomiting no change in mental status no blood in the stool no fever no chills Related Data Home Medications Medication Instructions Recorded Confirmed clonidine HCl 0.1 mg tablet 0.1 mg PO QHS PRN anxiety/insomnia 08/08/23 11/08/23 hydroxyzine HCl 50 mg tablet 50 mg PO TID PRN Anxiety 11/08/23 11/08/23 thiamine HCl (vitamin B1) 50 mg 50 mg PO DAILY 11/08/23 11/08/23 tablet Previous Rx's Medication Instructions Recorded folic acid 1 mg tablet 1 mg PO DAILY #30 tabs 09/11/23 potassium chloride 40 mEq/15 mL 40 meq (15 mL) PO DAILY #473 mL 09/18/23 oral liquid magnesium oxide 400 mg PO BID #180 tabs 09/27/23 ondansetron 4 mg disintegrating 4 mg PO Q8H PRN nausea and 10/05/23 tablet vomiting #30 tabs gabapentin 100 mg capsule 100 mg PO TID PRN anxiety #30 caps 11/20/23 buprenorphine 8 mg-naloxone 2 mg 1 film buccal DAILY #7 ea 12/07/23 sublingual film (Suboxone) cefuroxime axetil 250 mg tablet 250 mg PO BID 7 days #14 tabs 12/07/23 folic acid 1 mg tablet 1 mg PO DAILY #90 tabs 12/07/23 furosemide 20 mg tablet (Lasix) 20 mg PO QAM #30 tabs 12/07/23 magnesium oxide 400 mg PO BID #180 tabs 12/07/23 potassium chloride 20 mEq 20 meq PO DAILY #30 tabs 12/07/23 tablet,extended release spironolactone 50 mg tablet 50 mg PO BID #60 tabs 12/07/23 thiamine HCl (vitamin B1) 100 mg 100 mg PO DAILY #90 tabs 12/07/23 tablet Allergies Allergy/AdvReac Type Severity Reaction Status Date / Time Penicillins Allergy Unknown Rash Verified 12/07/23 15:19 aspirin AdvReac Intermediate Palpitation Verified 12/07/23 15:19 s codeine AdvReac Unknown Palpitation Verified 12/07/23 15:19 s Review of Systems Review of Systems: Yes all other systems are reviewed and are negative [facility] Past Medical History Medical History Alcohol use disorder, severe, dependence Pancreatitis Polysubstance use disorder Social History Social History Household Members: Family Housing: House Do you presently have visiting nurse or other home services: No Alcohol intake: current Alcohol intake frequency: 3 or more drinks per day Alcohol type: beer and hard liquor Patient Tobacco Use Status: Current everyday Tobacco user Tobacco use type: Cigarette Smoked in Last 30 Days: No Second Hand Smoke Exposure: No Use of substances other than those prescribed or required for medical reasons: Yes Substance Use Type: Crack/Cocaine Substance Use Frequency: Occasionally Advance Directives: No Advance Directives Information Provided: Yes Patient : No service: No Physical Exam ED Vital Signs: Vital Signs - 24 hr 12/07/23 15:11 12/07/23 20:04 12/07/23 20:43 Temperature 98.8 F 98.1 F 98 F Pulse Rate 90 82 90 Respiratory Rate 18 18 17 Blood Pressure 127/73 124/84 127/90 H Pulse Oximetry 96 97 96 Oxygen Delivery Method Room Air Room Air Room Air 12/07/23 20:50 Temperature 98 F Pulse Rate 90 Respiratory Rate 17 Blood Pressure 127/90 H Pulse Oximetry 96 Oxygen Delivery Method Room Air BMI result Body Mass Index 21.8 Appearance: Alert. Oriented X3. No acute distress. Eyes: PERRLA, No Nystagmus ENT: Pharynx normal. Oral Mucosa moist Neck: Normal inspection. Neck supple. CVS: Normal heart rate and rhythm. Pulses normal. Respiratory: No respiratory distress. Equal air entry bilateral, no wheezing/rales/rhonchi Abdomen: Soft and nontender. Bowel sounds are present, no mass palpable, no CVA tenderness Skin: Skin warm and dry. Normal skin color. Normal skin turgor. Extremities: 3+ lower extremity edema. No calf tenderness Neuro: Oriented X 3. No motor deficit. No sensory deficit.No cerebellar signs , cranial nerves II-XII intact Course Course Course Narrative: This is an RME: Additional HPI, ROS, PE not included below will be deferred to primary provider. Patient is a 50 female who presents emergency department for evaluation. She reports 1 week ago began having abdominal bloating and pain, nausea. Denies vomiting, diarrhea constipation. Also, she is experiencing bilateral lower extremity swelling left worse than right, for patient extends up to the mid thighs, only able to visualize up to the calves in triage. She reports feeling alcoholic, has recently tried cutting back on consumption, consuming about 3 or 4 nips daily. Palpable pulses bilaterally Plan: Labs, urinalysis. toxicology Medications Administered Discontinued Medications Generic Name Dose Route Start Last Admin Trade Name Freq PRN Reason Stop Dose Admin Cefuroxime Axetil 250 mg 12/07/23 20:17 12/07/23 20:43 Cefuroxime Axetil 250 Mg Tablet PO 12/07/23 20:18 250 mg ONCE ONE Administration Medical Decision Making Medical Decision Making [facility] Narrative: Patient with chronic liver disease from alcohol use workup showed stable labs, low albumin, no signs of CHF. Will discharge patient home on spironolactone Lasix advised to continue to stop drinking alcohol and follow with PCP Differential Diagnosis Differential Diagnoses: The differential diagnosis associated with the presentation includes Chronic liver disease/CHF/hyperproteinemia Lab Data [facility] Lab Attestation statement: I reviewed the patient's lab results. 12/07/23 15:40 12/07/23 15:40 Labs: Lab Results 12/07/23 Range/Units 15:40 WBC 10.0 (4.8-10.8) X10*3/uL RBC 3.30 L (4.20-5.50) X10*6/uL Hgb 11.8 L (12.0-16.0) g/dl Hct 33.2 L (37.0-47.0) % MCV 100.6 H (80.0-98.0) fL MCH 35.8 H (27.0-33.0) pg MCHC 35.5 H (31.0-35.0) g/dl RDW 12.8 (11.0-16.0) % Plt Count 117 L (160-400) X10*3/uL MPV 11.1 (9.4-12.3) fL Immature Gran % (Auto) 0.2 (0.0-0.4) % Neut % (Auto) 73.2 H (45-73) % Lymph % (Auto) 20.2 (20-40) % [place] % (Auto) 5.1 (2-11) % Eos % (Auto) 0.7 (0-4) % Baso % (Auto) 0.6 (0-2) % Lymph # (Auto) 2.0 (1.2-4.9) X10*3/uL [place] # (Auto) 0.5 (0.1-1.2) X10*3/uL Eos # (Auto) 0.1 (0.0-0.4) X10*3/uL Baso # (Auto) 0.1 (0.0-0.2) X10*3/uL Abs Immat Gran (auto) 0.02 (0.00-0.03) X10*3/uL Absolute Neuts (auto) 7.3 (2.0-8.3) x10*3/uL Absolute Nucleated RBC 0.000 (0.0-0.012) X10*3/uL Nucleated RBC % (auto) 0.0 (0.0-0.2) /100WBC PT 16.1 H (11.1-13.3) SEC INR 1.3 H (0.9-1.1) Sodium 138 (135-145) mmol/L Potassium 4.1 (3.3-5.1) mmol/L Chloride 104 (96-108) mmol/L Carbon Dioxide 29 (22-29) mmol/L Anion Gap 9 L (12-20) BUN 6 L (9-16) mg/dL Creatinine 0.60 (0.5-1.4) mg/dL Estim Creat Clear Calc 105.4 Estimated GFR > 60 Random Glucose 91 (60-115) mg/dL Calcium 7.6 L D (8.4-10.2) mg/dL Total Bilirubin 2.4 H (0.0-1.0) mg/dL AST 158 H (5-31) U/L ALT 23 (0-31) U/L Alkaline Phosphatase 192 H (39-117) U/L B-Natriuretic Peptide 115 H (<100) pg/mL Total Protein 6.7 (6.5-8.0) g/dL Albumin 2.6 L (3.5-5.0) g/dL Lipase 15 (8-78) U/L Urine Color Dark Yellow Urine Appearance Cloudy Urine pH 5.5 (5.0-9.0) Ur Specific [place] >= 1.030 H (1.005-1.025) Urine Protein 30 (1+) H (Neg-Trace) mg/dL Urine Glucose (UA) Negative (Negative) mg/dL Urine Ketones Trace (Negative) mg/dL Urine Blood Negative (Negative) Urine Nitrite Positive H (Negative) Ur Leukocyte Esterase Small (1+) H (Negative) Urine RBC 0-2 (0-2) /HPF Urine WBC 0-5 (0-5) /HPF Ur Squamous Epith Cells >20 (0-2) /HPF Urine Bacteria 3+ (None Seen) Hyaline Casts 0-2 (0-2) /LPF Urine Opiates Screen Not Detected (Not Detect) Urine Fentanyl Screen Not Detected (Not Detect) Ur Barbiturates Screen POSITIVE H (Not Detect) Ur Phencyclidine Scrn Not Detected (Not Detect) Ur Amphetamines Screen Not Detected (Not Detect) U Benzodiazepines Scrn Not Detected (Not Detect) Urine Cocaine Screen POSITIVE H (Not Detect) U Marijuana (THC) Screen Not Detected (Not Detect) Ethyl Alcohol 232 mg/dL Influenza Type A (PCR) NEGATIVE (Negative) Influenza Type B (PCR) NEGATIVE (Negative) RSV RNA Qual (PCR) NEGATIVE (Negative) SARS-CoV-2 RNA (RT-PCR) NEGATIVE (Negative) Discharge Plan Discharge Clinical Impression: Chronic alcoholic liver disease, UTI (urinary tract infection) Patient Disposition: Home, Self-Care Instructions: Urinary Tract Infection in Women (ED), Alcohol Use Disorder (ED) Additional Instructions: Stop drinking alcohol Take Water pill daily as prescribed Continue magnesium tablet and potassium tablets Follow detox Antibiotic for UTI Prescriptions: New spironolactone 50 mg tablet 50 mg PO BID Qty: 60 0RF magnesium oxide 400 mg magnesium tablet 400 mg PO BID Qty: 180 0RF furosemide [Lasix] 20 mg tablet 20 mg PO QAM Qty: 30 0RF potassium chloride 20 mEq tablet extended release 20 meq PO DAILY Qty: 30 0RF folic acid 1 mg tablet 1 mg PO DAILY Qty: 90 0RF thiamine HCl (vitamin B1) 100 mg tablet 100 mg PO DAILY Qty: 90 0RF cefuroxime axetil 250 mg tablet 250 mg PO BID 7 Days Qty: 14 0RF No Action potassium chloride 40 mEq/15 mL liquid 40 meq PO DAILY Qty: 473 0RF buprenorphine-naloxone [Suboxone] 8-2 mg film 1 film buccal DAILY Qty: 7 0RF magnesium oxide 400 mg magnesium tablet 400 mg PO BID Qty: 180 3RF hydroxyzine HCl 50 mg Tablet 50 mg PO TID PRN (Reason: Anxiety) thiamine HCl (vitamin B1) 50 mg tablet 50 mg PO DAILY clonidine HCl 0.1 mg tablet 0.1 mg PO QHS PRN (Reason: anxiety/insomnia) ondansetron 4 mg tablet,disintegrating 4 mg PO Q8H PRN (Reason: nausea and vomiting) Qty: 30 0RF gabapentin 100 mg capsule 100 mg PO TID PRN (Reason: anxiety) Qty: 30 0RF folic acid 1 mg tablet 1 mg PO DAILY Qty: 30 3RF Interventions: ED Discharge Assessment Last Done: 12/07/23 20:50 Discharge Date/Time: 12/07/23 20:51
[2023-12-07 15:48] LABS: Hemoglobin 11.8 g/dl (12.0-16.0); Mean Corpuscular Volume 100.6 fL (80.0-98.0); PLT CLUMP 1; SCAN SMEAR FLAG 1
[2023-12-07 15:50] LABS: Basophils Absolute Auto 0.1 X10*3/uL (0.0-0.2); Basophils Percent Auto 0.6 % (0-2); Eosinophils Absolute Auto 0.1 X10*3/uL (0.0-0.4); Eosinophils Percent Auto 0.7 % (0-4); Hematocrit 33.2 % (37.0-47.0); Imm Gran Abs Auto 0.02 X10*3/uL (0.00-0.03); Imm Gran Pct Auto 0.2 % (0.0-0.4); Lymphocytes Percent Auto 20.2 % (20-40); Mean Corpuscular HGB Conc 35.5 g/dl (31.0-35.0); Mean Corpuscular Hemoglobin 35.8 pg (27.0-33.0); Mean Platelet Volume 11.1 fL (9.4-12.3); Monocytes Absolute Auto 0.5 X10*3/uL (0.1-1.2); Monocytes Percent Auto 5.1 % (2-11); Neutrophils Absolute Auto 7.3 x10*3/uL (2.0-8.3); Neutrophils Percent Auto 73.2 % (45-73); Red Cell Distribution Width 12.8 % (11.0-16.0)
[2023-12-07 15:53] LABS: Appearance Urine Cloudy; Color Urine Dark Yellow; Glucose Urine UA Negative (Negative); Leukocyte Esterase Urine Small (1+) (Negative); Nitrite Urine Positive (Negative); PH 5.5 (5.0-9.0); Specific Gravity - Urine >= 1.030 (1.005-1.025); UMIC TRIGGER UACC YES; Urine Blood Negative (Negative); Urine Ketones Trace mg/dL (Negative); Urine Protein 30 (1+) mg/dL (Neg-Trace)
[2023-12-07 15:55] LABS: MANUAL DIFF FLAG NO; Platelet Count 117 X10*3/uL (160-400)
[2023-12-07 15:57] LABS: INTERNATIONAL NORM RATIO 1.3 (0.9-1.1); Prothrombin Time 16.1 SEC (11.1-13.3)
[2023-12-07 15:58] LABS: Amphetamine Screen Urine Not Detected (Not Detect); Barbiturates, Urine POSITIVE (Not Detect); Benzodiazepines Screen Urine Not Detected (Not Detect); Cannabinoid Screen Urine Not Detected (Not Detect); Cocaine Screen Urine POSITIVE (Not Detect); Fentanyl, urine Not Detected (Not Detect); Opiate Screen Urine Not Detected (Not Detect); Phencyclidine Screen Urine Not Detected (Not Detect)
[2023-12-07 16:00] LABS: Ethanol 232 mg/dL
[2023-12-07 16:03] LABS: Alanine Aminotransferase 23 U/L (0-31); Albumin Level 2.6 g/dL (3.5-5.0); Alkaline Phosphatase 192 U/L (39-117); Anion Gap 9 (12-20); Aspartate Amino Transferase 158 U/L (5-31); Bilirubin Total 2.4 mg/dL (0.0-1.0); Blood Urea Nitrogen 6 mg/dL (9-16); Calcium 7.6 mg/dL (8.4-10.2); Carbon Dioxide 29 mmol/L (22-29); Chloride 104 mmol/L (96-108); Creatinine Clr Calc Pharmacy 105.4; Estimated Glomerular Filt Rate > 60; Glucose Random 91 mg/dL (60-115); Lipase 15 U/L (8-78); Potassium 4.1 mmol/L (3.3-5.1); Sodium 138 mmol/L (135-145); Total Protein 6.7 g/dL (6.5-8.0)
[2023-12-07 16:09] LABS: B Type Natriuretic Peptide 115 pg/mL (<100)
[2023-12-07 16:18] LABS: Bacteria Urine 3+ (None Seen); Hyaline Casts Urine 0-2 /LPF (0-2); Squamous Epithelial Cell Urine >20 /HPF (0-2); UACC Culture Trigger YES; WBC Urine 0-5 /HPF (0-5)
[2023-12-07 16:22] LABS: RBC Urine 0-2 /HPF (0-2)
[2023-12-07 16:27] LABS: Influenza A PCR NEGATIVE (Negative); Influenza B PCR NEGATIVE (Negative); Resp Syncy Virus RNA Qual PCR NEGATIVE (Negative); SARS COV2 PCR INHOUSE NEGATIVE (Negative)
[2023-12-07 20:04] VITALS: BP 124/84; PULSE 82; RESP 18; TEMP 36.7; O2SAT 97
[2023-12-07 20:43] VITALS: BP 127/90; PULSE 90; RESP 17; TEMP 36.6; O2SAT 96
[2023-12-07] MEDS: cefuroxime axetiL 250 MG TABLET PO (20:43)
[2023-12-07 20:50] VITALS: BP 127/90; PULSE 90; RESP 17; TEMP 36.6; O2SAT 96
== END 2023-12-07 20:51 | disposition home or self-care (01) ==
PROVIDERS: Nurse Practitioner Family; Emergency Provider Internal Medicine
DX: K76.9 Liver disease, unspecified (principal); N39.0 Urinary tract infection, site not specified; R60.0 Localized edema; Z79.899 Other long term (current) drug therapy; Z11.52 Encounter for screening for COVID-19; Z20.822 Contact with and (suspected) exposure to COVID-19
CPT/HCPCS: 0241U; 36415; 80053; 80307; 81001; 83690; 83880; 85025; 85610; 87086; 99283; 99284

== ENCOUNTER 2023-12-21 10:14 | Inpatient (IN) | payer MEDICAID, SELFPAY ==
[2023-12-21] VITALS (8 sets, daily range): BP systolic 93–138; BP diastolic 59–93; PULSE 76–97; RESP 13–20; TEMP 36.4–37.2; O2SAT 88–94
--- NOTE | ~2023-12-21 | XR_ITS ---
EXAMINATION: XR CHEST CLINICAL INFORMATION: Hypoxia. Chest pain. COMPARISON: None available. TECHNIQUE: 2 views of the chest were obtained. FINDINGS: Cardiac silhouette is normal in size. The lungs are well aerated. There is no lobar consolidation. No pleural effusion or pneumothorax. No acute osseous abnormality. XR/XR chest 2V IMPRESSION: No acute pulmonary pathology.
--- NOTE | ~2023-12-21 | US_ITS ---
Ultrasound paracentesis History: Ascites. Risks and benefits and possible complications were discussed with the patient and consent form was signed. A safe pocket of ascitic fluid was identified using ultrasound guidance, and the overlying skin was marked. The abdomen prepped and draped in sterile fashion. 1% lidocaine was used as a local anesthetic. Using ultrasound guidance, a 5 fr catheter was placed into the ascitic pocket. 2.6 liters of yellow fluid was removed passively. The catheter was then removed. A few direct marketing representative images from before and after the examination were obtained. The procedure was performed by Jovany Mao PA-C and supervised by Dr. Tsang. US/US paracentesis abd w/image Impression: Ultrasound-guided paracentesis as described above. No immediate complications
--- NOTE | ~2023-12-21 | CT_ITS ---
EXAMINATION: CT ANGIOGRAM OF THE CHEST WITH AND WITHOUT CONTRAST (CT PULMONARY ANGIOGRAM FOR PE) CLINICAL INFORMATION: Reason for Exam hypoxia COMPARISON: Chest x-ray from earlier the same day TECHNIQUE: Prior to contrast administration, noncontrast localization images were obtained. Subsequently, multidetector volumetric imaging was performed from the thoracic inlet to below the diaphragms following the administration of 65 mL Omnipaque 350 intravenous contrast. No contrast reaction reported Sagittal, coronal, and MIP oblique sagittal reformatted images were obtained on the CT workstation, uploaded to PACS, and reviewed. This CT examination was performed using dose optimization techniques as appropriate, variously including the following: *Automated exposure control *Adjustment of mA and/or kV according to patient size (this includes techniques or standardized protocols for targeted exams where dose is matched to indication/reason for exam; i.e. extremities or head) *Use of iterative reconstruction technique Total exam dose-length product 180 mGy-cm FINDINGS: QUALITY OF STUDY/CONTRAST BOLUS: Satisfactory. PULMONARY ARTERIES: No pulmonary emboli. THORACIC AORTA: No aneurysm. LUNG: Bibasilar subsegmental atelectasis. Low lung volumes. PLEURA: Small left pleural effusion. No right pleural effusion or pneumothorax. MEDIASTINUM: Normal heart size. No pericardial effusion. No hilar or mediastinal lymphadenopathy. No evidence of septal bowing or right heart strain. Wall thickening of the distal esophagus. CORONARY ARTERY CALCIFICATION: None visualized on this study. CHEST WALL/AXILLA: No axillary or internal mammary lymphadenopathy. OSSEOUS STRUCTURES: No acute or suspicious osseous abnormality. UPPER ABDOMEN: Severe fatty infiltration of the liver. Question small esophageal hernia and wall thickening of the proximal stomach. Moderate amount of ascites. No reflux of contrast into the hepatic veins to suggest elevated right heart pressures. CT/CT angio chest PE protocol IMPRESSION: Low lung volumes and bibasilar subsegmental atelectasis. Small left pleural effusion. Severe fatty infiltration of the liver and at least moderate amount of ascites. Wall thickening of the distal esophagus and proximal stomach and question small esophageal hernia. VTE: negative
--- NOTE | ~2023-12-21 | US_ITS ---
EXAMINATION: US ABDOMEN COMPLETE CLINICAL INFORMATION: Alcoholic hepatitis. Question presence of ascites. COMPARISON: Abdomen CT from 11/08/[address] from 12/22/2023. TECHNIQUE: Real-time imaging of the abdominal viscera. FINDINGS: PANCREAS: The pancreatic tail is obscured by bowel gas. No pancreatic ductal dilatation. The visualized pancreas is normal parenchymal echotexture. ABDOMINAL AORTA AND IVC: The visualized proximal and middle segments of the abdominal aorta are normal in caliber. The distal aorta is obscured by bowel. Inferior vena cava is unremarkable. LIVER: Mild hepatomegaly. Liver parenchyma is diffusely hyperechoic. The intrahepatic ducts are mildly dilated. No evidence of focal liver lesion. Color Doppler images show abnormal hepatofugal flow within the main portal vein. GALLBLADDER: Gallbladder is moderately distended. Small amount of sludge is seen within the lumen of the gallbladder. The gallbladder wall measures up to 0.6 cm thick. The gallbladder wall thickening is likely reactive to the hepatic disease. COMMON BILE DUCT: The common duct is chronically dilated and measures up to 1 cm diameter; this is not significantly changed compared to 11/08/2023. RIGHT KIDNEY: Normal. No hydronephrosis. No renal calculi or focal parenchymal lesions. The kidney measures 12.3 cm in maximum dimension. LEFT KIDNEY: Normal. No hydronephrosis. No renal calculi or focal parenchymal lesions. The kidney measures 12 cm in maximum dimension. SPLEEN: Normal. The spleen measures 10.9 cm in maximum dimension. FREE FLUID: Moderate amount of free fluid is detected within the upper abdomen. US/US abdomen complete IMPRESSION: * Mild hepatomegaly, diffuse hepatic steatosis and findings suggestive of portal venous hypertension. * Moderate volume of abdominal ascites is detected. * Common bile duct is chronically dilated to 1 cm diameter and the intrahepatic ducts are mildly dilated.
--- NOTE | ~2023-12-21 | XR_ITS ---
EXAMINATION: XR CHEST CLINICAL INFORMATION: Persistent hypoxia COMPARISON: Chest 12/21/2023 TECHNIQUE: Frontal view of the chest was obtained. FINDINGS: No significant abnormality is noted involving the heart, lungs, mediastinum, bony thorax or soft tissues. Again noted is mild elevation of the right hemidiaphragm. XR/XR chest 1V IMPRESSION: No acute cardiopulmonary disease.
--- NOTE | 2023-12-21 10:49 | ECG_ITS ---
Test Reason : CP Blood Pressure : / mmHG Vent. Rate : 092 BPM Atrial Rate : 092 BPM P-R Int : 136 ms QRS Dur : 090 ms QT Int : 394 ms P-R-T Axes : 000 073 066 degrees QTc Int : 487 ms Normal sinus rhythm Artifact on tracing. When compared with ECG of 27-SEP-2023 18:54, Vent. rate has increased BY 39 BPM Poor data quality in current ECG precludes serial comparison Referred By: Generic ED Physician Electronically Signed By:Christiano Graves
--- NOTE | 2023-12-21 10:59 | ED_ITS ---
HPI - General Adult General Chief complaint: General Medical Stated complaint: staph infection not getting better Time Seen by Provider: 12/21/23 13:28 History of Present Illness HPI narrative: See additional note dated 12/21/2023 Related Data Home Medications ?Medication ?Instructions ?Recorded ?Confirmed clonidine HCl 0.1 mg tablet 0.1 mg PO QHS PRN anxiety/insomnia 08/08/23 12/21/23 Previous Rx's ?Medication ?Instructions ?Recorded folic acid 1 mg tablet 1 mg PO DAILY #90 tabs 12/07/23 furosemide 20 mg tablet (Lasix) 20 mg PO QAM #30 tabs 12/07/23 magnesium oxide 400 mg PO BID #180 tabs 12/07/23 potassium chloride 20 mEq 20 meq PO DAILY #30 tabs 12/07/23 tablet,extended release spironolactone 50 mg tablet 50 mg PO BID #60 tabs 12/07/23 thiamine HCl (vitamin B1) 100 mg 100 mg PO DAILY #90 tabs 12/07/23 tablet buprenorphine 8 mg-naloxone 2 mg 1 film buccal DAILY #7 ea 12/21/23 sublingual film (Suboxone) Allergies Allergy/AdvReac Type Severity Reaction Status Date / Time Penicillins Allergy Unknown Rash Verified 12/21/23 11:09 aspirin AdvReac Intermediate Palpitation Verified 12/21/23 11:09 s codeine AdvReac Unknown Palpitation Verified 12/21/23 11:09 s PMFSH Past Medical History Medical History Alcohol use disorder, severe, dependence Pancreatitis Polysubstance use disorder Social History Social History Household Members: Family Housing: House Do you presently have visiting nurse or other home services: No Alcohol intake: current Alcohol intake frequency: 3 or more drinks per day Alcohol type: wine Patient Tobacco Use Status: Current everyday Tobacco user Tobacco use type: Cigarette Smoked in Last 30 Days: Yes Second Hand Smoke Exposure: No Use of substances other than those prescribed or required for medical reasons: No Substance Use Type: Crack/Cocaine Advance Directives: No Advance Directives Information Provided: Yes Patient : No service: No Physical Exam ED Vital Signs: Vital Signs - 24 hr 12/21/23 11:00 12/21/23 12:50 12/21/23 14:40 Temperature 98.9 F 97.6 F Pulse Rate 90 97 92 Respiratory Rate 20 20 20 Blood Pressure 127/80 119/80 124/83 Pulse Oximetry 88 L 91 L 88 L Oxygen Delivery Method Room Air Room Air Room Air BMI result Body Mass Index 20.0 Course Course Course Narrative: This is an RME: Additional HPI, ROS, PE not included below will be deferred to primary provider. Patient is a 53-year-old female who presents emergency department reporting she feels she has a staph infection to legs with swelling and would like to have antibiotics prescribed to her, in addition she reports intermittent CP since last night squishing pain. Plan: labs, EKG Medications Administered Generic Name Dose Route Start Last Admin Trade Name Freq PRN Reason Stop Dose Admin Potassium Chloride 10 meq in 100 mls @ 100 mls/hr 12/21/23 14:00 12/21/23 16:50 Potassium Chloride/H20 IV 12/21/23 17:59 100 mls/hr Q1H DEVON Administration Sodium Chloride 3 ml 12/21/23 16:00 12/21/23 16:04 0.9 % Sodium Chloride Flush 3 Ml Syringe IVFLUSH Not Given QSHIFT DEVON Discontinued Medications Generic Name Dose Route Start Last Admin Trade Name Freq PRN Reason Stop Dose Admin Acetaminophen 975 mg 12/21/23 14:24 12/21/23 14:31 Acetaminophen 325 Mg Tablet PO 12/21/23 14:25 975 mg ONCE ONE Administration Buprenorphine/Naloxone 1 film 12/21/23 14:34 12/21/23 14:39 Buprenorphine/Naloxone 8/2 Mg Film SUBLINGUAL 12/21/23 14:35 1 film ONCE ONE Administration Sodium Chloride 500 mls @ 999 mls/hr 12/21/23 13:45 12/21/23 14:29 Ns IV 12/21/23 14:15 Not Given .Q31M DEVON Magnesium Sulfate 2 gm in 50 mls @ 25 mls/hr 12/21/23 13:56 12/21/23 16:28 Magnesium Sulfate/H2o IV 12/21/23 15:55 Infused ONCE ONE Infusion Sodium Chloride 500 mls @ 999 mls/hr 12/21/23 14:15 12/21/23 14:59 Ns IV 12/21/23 14:45 Infused .Q31M DEVON Infusion Phenobarbital Sodium 137.8 mg 12/21/23 16:00 12/21/23 15:55 Phenobarbital Sodium 130 Mg/Ml Im Once IM 12/21/23 16:01 137.8 mg ONCE ONE Administration Protocol Potassium Chloride 40 meq 12/21/23 13:57 12/21/23 14:28 Potassium Chloride Er 20 Meq Tab.Er.Prt PO 12/21/23 13:58 40 meq ONCE ONE Administration Medical Decision Making Lab Data 12/21/23 11:19 12/21/23 11:19 Labs: Lab Results 12/21/23 12/21/23 Range/Units 11:19 13:46 WBC 11.4 H (4.8-10.8) X10*3/uL RBC 3.66 L (4.20-5.50) X10*6/uL Hgb 12.9 (12.0-16.0) g/dl Hct 34.4 L (37.0-47.0) % MCV 94.0 (80.0-98.0) fL MCH 35.2 H (27.0-33.0) pg MCHC 37.5 H (31.0-35.0) g/dl RDW 13.4 (11.0-16.0) % Plt Count 108 L (160-400) X10*3/uL MPV 11.5 (9.4-12.3) fL Immature Gran % (Auto) 0.4 (0.0-0.4) % Neut % (Auto) 69.8 (45-73) % Lymph % (Auto) 21.1 (20-40) % [place] % (Auto) 7.5 (2-11) % Eos % (Auto) 0.5 (0-4) % Baso % (Auto) 0.7 (0-2) % Lymph # (Auto) 2.4 (1.2-4.9) X10*3/uL [place] # (Auto) 0.9 (0.1-1.2) X10*3/uL Eos # (Auto) 0.1 (0.0-0.4) X10*3/uL Baso # (Auto) 0.1 (0.0-0.2) X10*3/uL Abs Immat Gran (auto) 0.05 H (0.00-0.03) X10*3/uL Absolute Neuts (auto) 8.0 (2.0-8.3) x10*3/uL Absolute Nucleated RBC 0.000 (0.0-0.012) X10*3/uL Nucleated RBC % (auto) 0.0 (0.0-0.2) /100WBC Sodium 138 (135-145) mmol/L Potassium 2.8 L* D (3.3-5.1) mmol/L Chloride 94 L (96-108) mmol/L Carbon Dioxide 32 H (22-29) mmol/L Anion Gap 15 (12-20) BUN 7 L (9-16) mg/dL Creatinine 0.77 (0.5-1.4) mg/dL Estim Creat Clear Calc 76.2 Estimated GFR > 60 Random Glucose 119 H (60-115) mg/dL Calcium 7.4 L (8.4-10.2) mg/dL Magnesium 0.7 L* (1.6-2.6) mg/dL Total Bilirubin 3.8 H (0.0-1.0) mg/dL AST 166 H (5-31) U/L ALT 30 (0-31) U/L Alkaline Phosphatase 204 H (39-117) U/L Troponin I High Sens < 2.7 (<3.5-17.0) ng/L Total Protein 7.5 (6.5-8.0) g/dL Albumin 2.6 L (3.5-5.0) g/dL Lipase 10 (8-78) U/L Ethyl Alcohol 237 mg/dL Influenza Type A (PCR) NEGATIVE (Negative) Influenza Type B (PCR) NEGATIVE (Negative) RSV RNA Qual (PCR) NEGATIVE (Negative) SARS-CoV-2 RNA (RT-PCR) NEGATIVE (Negative) Discharge Plan Discharge Clinical Impression: Hypomagnesemia, Hypokalemia due to inadequate potassium intake, AA (alcohol abuse), Withdrawal symptoms, alcohol Patient Disposition: Admitted As Inpatient
[2023-12-21 11:24] LABS: MANUAL DIFF FLAG NO
[2023-12-21 11:42] LABS: Basophils Absolute Auto 0.1 X10*3/uL (0.0-0.2); Basophils Percent Auto 0.7 % (0-2); Eosinophils Absolute Auto 0.1 X10*3/uL (0.0-0.4); Eosinophils Percent Auto 0.5 % (0-4); Hematocrit 34.4 % (37.0-47.0); Hemoglobin 12.9 g/dl (12.0-16.0); Imm Gran Abs Auto 0.05 X10*3/uL (0.00-0.03); Imm Gran Pct Auto 0.4 % (0.0-0.4); Lymphocytes Absolute Auto 2.4 X10*3/uL (1.2-4.9); Lymphocytes Percent Auto 21.1 % (20-40); Mean Corpuscular HGB Conc 37.5 g/dl (31.0-35.0); Mean Corpuscular Hemoglobin 35.2 pg (27.0-33.0); Mean Platelet Volume 11.5 fL (9.4-12.3); Monocytes Absolute Auto 0.9 X10*3/uL (0.1-1.2); Monocytes Percent Auto 7.5 % (2-11); Neutrophils Percent Auto 69.8 % (45-73); PLT CLUMP 1; Red Blood Count 3.66 X10*6/uL (4.20-5.50); Red Cell Distribution Width 13.4 % (11.0-16.0); SCAN SMEAR FLAG 1
[2023-12-21 11:43] LABS: Platelet Count 108 X10*3/uL (160-400); White Blood Count 11.4 X10*3/uL (4.8-10.8)
[2023-12-21 11:49] LABS: Alanine Aminotransferase 30 U/L (0-31); Albumin Level 2.6 g/dL (3.5-5.0); Alkaline Phosphatase 204 U/L (39-117); Anion Gap 15 (12-20); Aspartate Amino Transferase 166 U/L (5-31); Bilirubin Total 3.8 mg/dL (0.0-1.0); Blood Urea Nitrogen 7 mg/dL (9-16); Calcium 7.4 mg/dL (8.4-10.2); Carbon Dioxide 32 mmol/L (22-29); Chloride 94 mmol/L (96-108); Creatinine Clr Calc Pharmacy 76.2; Estimated Glomerular Filt Rate > 60; Glucose Random 119 mg/dL (60-115); Lipase 10 U/L (8-78); Potassium 2.8 mmol/L (3.3-5.1); Sodium 138 mmol/L (135-145); Total Protein 7.5 g/dL (6.5-8.0)
[2023-12-21 11:52] LABS: Troponin-I High Sensitivity < 2.7 ng/L (<3.5-17.0)
--- NOTE | 2023-12-21 13:40 | ED_ITS ---
HPI - General Adult General Chief complaint: General Medical Stated complaint: staph infection not getting better Time Seen by Provider: 12/21/23 13:28 History of Present Illness HPI narrative: 52 years old with history of alcohol use disorder, alcoholic pancreatitis, history of alcohol withdrawal seizure, polysubstance abuse disorder, presents to the emergency room complaining of generalized weakness, bilateral leg pain and paresthesia chest pressure, epigastric pain and requesting help for alcohol detox. Patient reports that she was admitted 2 weeks ago where she was diagnosed with staph infection and treated with antibiotic In addition patient reports that she has being having some tooth pain who was being treated as well with oral antibiotics over the past week. She denies vomiting or diarrhea, no melena or hematochezia Patient denies recent falls Reports that her last drink was last night (2 glasses of wine) Endorse use of cocaine last of which was few weeks ago. Patient reports that the chest pain is not exertional, not pleuritic, intermittent lasting minutes to hours and Not present at time of examination Related Data Home Medications ?Medication ?Instructions ?Recorded ?Confirmed clonidine HCl 0.1 mg tablet 0.1 mg PO QHS PRN anxiety/insomnia 08/08/23 12/21/23 Previous Rx's ?Medication ?Instructions ?Recorded folic acid 1 mg tablet 1 mg PO DAILY #90 tabs 12/07/23 furosemide 20 mg tablet (Lasix) 20 mg PO QAM #30 tabs 12/07/23 magnesium oxide 400 mg PO BID #180 tabs 12/07/23 potassium chloride 20 mEq 20 meq PO DAILY #30 tabs 12/07/23 tablet,extended release spironolactone 50 mg tablet 50 mg PO BID #60 tabs 12/07/23 thiamine HCl (vitamin B1) 100 mg 100 mg PO DAILY #90 tabs 12/07/23 tablet buprenorphine 8 mg-naloxone 2 mg 1 film buccal DAILY #7 ea 12/21/23 sublingual film (Suboxone) Allergies Allergy/AdvReac Type Severity Reaction Status Date / Time Penicillins Allergy Unknown Rash Verified 12/21/23 11:09 aspirin AdvReac Intermediate Palpitation Verified 12/21/23 11:09 s codeine AdvReac Unknown Palpitation Verified 12/21/23 11:09 s Review of Systems 2 Review of Systems: Yes all other systems are reviewed and are negative [facility] Past Medical History Medical History Alcohol use disorder, severe, dependence Pancreatitis Polysubstance use disorder Social History Social History Household Members: Family Housing: House Do you presently have visiting nurse or other home services: No Alcohol intake: current Alcohol intake frequency: 3 or more drinks per day Alcohol type: wine Patient Tobacco Use Status: Current everyday Tobacco user Tobacco use type: Cigarette Smoked in Last 30 Days: Yes Second Hand Smoke Exposure: No Use of substances other than those prescribed or required for medical reasons: No Substance Use Type: Crack/Cocaine Advance Directives: No Advance Directives Information Provided: Yes Patient : No service: No Physical Exam ED Vital Signs: Vital Signs - 24 hr 12/21/23 11:00 12/21/23 12:50 12/21/23 14:40 Temperature 98.9 F 97.6 F Pulse Rate 90 97 92 Respiratory Rate 20 20 20 Blood Pressure 127/80 119/80 124/83 Pulse Oximetry 88 L 91 L 88 L Oxygen Delivery Method Room Air Room Air Room Air BMI result Body Mass Index 20.0 General: Alert, Not in Distress Skin: No rash, warm HEENT: Atraumatic, No Exudate or Pharyngeal Erythema Resp: Normal Breath sounds bilaterally Cardio: Regular rate and Rhythm, Normal S1, S2 ABD: Abd soft, non tender, no guarding or rebound. Normal Bowel sounds. : No cva tenderness Neuro: Alert, oriented x4, PERRL Strenght 5/5 on all extremities Sensation is preserved in both lower and upper extremities Index to nose: normal Cranial Nerves II-XII grossly intact No dysarthria, or aphasia No neglet. Visual rodriguez are normal bilaterally Psych: Cooperative, NO SI Course Reevaluation(s) Reevaluation #1: Patient's blood work showed severe hypomagnesemia and moderate hypokalemia, we will replete magnesium and potassium accordingly. In consideration of the patient history of alcohol withdrawal with seizures, severe electrolyte derangement will discuss case with hospitalist for admission Pending chest x-ray to evaluate reported hypoxia. Time: 14:23 Reevaluation #2: Admitted to hospital for hypomagnesemia, hypokalemia and observation for alcohol withdrawal. Hemodynamically stable Received a dose of Suboxone Time: 15:34 Medications Administered Generic Name Dose Route Start Last Admin Trade Name Freq PRN Reason Stop Dose Admin Magnesium Sulfate 2 gm in 50 mls @ 25 mls/hr 12/21/23 13:56 12/21/23 14:28 Magnesium Sulfate/H2o IV 12/21/23 15:55 25 mls/hr ONCE ONE Administration Potassium Chloride 10 meq in 100 mls @ 100 mls/hr 12/21/23 14:00 12/21/23 14:28 Potassium Chloride/H20 IV 12/21/23 17:59 100 mls/hr Q1H DEVON Administration Discontinued Medications Generic Name Dose Route Start Last Admin Trade Name Freq PRN Reason Stop Dose Admin Acetaminophen 975 mg 12/21/23 14:24 12/21/23 14:31 Acetaminophen 325 Mg Tablet PO 12/21/23 14:25 975 mg ONCE ONE Administration Buprenorphine/Naloxone 1 film 12/21/23 14:34 12/21/23 14:39 Buprenorphine/Naloxone 8/2 Mg Film SUBLINGUAL 12/21/23 14:35 1 film ONCE ONE Administration Sodium Chloride 500 mls @ 999 mls/hr 12/21/23 13:45 12/21/23 14:29 Ns IV 12/21/23 14:15 Not Given .Q31M DEVON Sodium Chloride 500 mls @ 999 mls/hr 12/21/23 14:15 12/21/23 14:28 Ns IV 12/21/23 14:45 999 mls/hr .Q31M DEVON Administration Potassium Chloride 40 meq 12/21/23 13:57 12/21/23 14:28 Potassium Chloride Er 20 Meq Tab.Er.Prt PO 12/21/23 13:58 40 meq ONCE ONE Administration Medical Decision Making Medical Decision Making [facility] Narrative: Patient presented to the emergency room for multiple complaints including bilateral leg pain, weakness, chest pressure. On ambulatory trial in triage her pulse ox showed an SpO2 88%, possibly secondary to pneumonia, URI but also it is possible that is secondary to chronic smoking Patient does not appear to be in respiratory distress during my interview. Patient's symptoms may also be related to electrolyte imbalance and chronic alcohol use Chronic alcoholic pancreatitis/gastritis ulcer among possible differential diagnosis Plan CBC, BMP, lipase, ethanol level [place] Chest x-ray EKG Lab Data [facility] Lab Attestation statement: I reviewed the patient's lab results. Patient's blood work showed severe hypomagnesemia and hypokalemia also mild hypocalcemia Alcohol level 237 Rest of the lab work is unchanged from prior 12/21/23 11:19 12/21/23 11:19 Labs: Lab Results 12/21/23 12/21/23 Range/Units 11:19 13:46 WBC 11.4 H (4.8-10.8) X10*3/uL RBC 3.66 L (4.20-5.50) X10*6/uL Hgb 12.9 (12.0-16.0) g/dl Hct 34.4 L (37.0-47.0) % MCV 94.0 (80.0-98.0) fL MCH 35.2 H (27.0-33.0) pg MCHC 37.5 H (31.0-35.0) g/dl RDW 13.4 (11.0-16.0) % Plt Count 108 L (160-400) X10*3/uL MPV 11.5 (9.4-12.3) fL Immature Gran % (Auto) 0.4 (0.0-0.4) % Neut % (Auto) 69.8 (45-73) % Lymph % (Auto) 21.1 (20-40) % [place] % (Auto) 7.5 (2-11) % Eos % (Auto) 0.5 (0-4) % Baso % (Auto) 0.7 (0-2) % Lymph # (Auto) 2.4 (1.2-4.9) X10*3/uL [place] # (Auto) 0.9 (0.1-1.2) X10*3/uL Eos # (Auto) 0.1 (0.0-0.4) X10*3/uL Baso # (Auto) 0.1 (0.0-0.2) X10*3/uL Abs Immat Gran (auto) 0.05 H (0.00-0.03) X10*3/uL Absolute Neuts (auto) 8.0 (2.0-8.3) x10*3/uL Absolute Nucleated RBC 0.000 (0.0-0.012) X10*3/uL Nucleated RBC % (auto) 0.0 (0.0-0.2) /100WBC Sodium 138 (135-145) mmol/L Potassium 2.8 L* D (3.3-5.1) mmol/L Chloride 94 L (96-108) mmol/L Carbon Dioxide 32 H (22-29) mmol/L Anion Gap 15 (12-20) BUN 7 L (9-16) mg/dL Creatinine 0.77 (0.5-1.4) mg/dL Estim Creat Clear Calc 76.2 Estimated GFR > 60 Random Glucose 119 H (60-115) mg/dL Calcium 7.4 L (8.4-10.2) mg/dL Magnesium 0.7 L* (1.6-2.6) mg/dL Total Bilirubin 3.8 H (0.0-1.0) mg/dL AST 166 H (5-31) U/L ALT 30 (0-31) U/L Alkaline Phosphatase 204 H (39-117) U/L Troponin I High Sens < 2.7 (<3.5-17.0) ng/L Total Protein 7.5 (6.5-8.0) g/dL Albumin 2.6 L (3.5-5.0) g/dL Lipase 10 (8-78) U/L Ethyl Alcohol 237 mg/dL Influenza Type A (PCR) NEGATIVE (Negative) Influenza Type B (PCR) NEGATIVE (Negative) RSV RNA Qual (PCR) NEGATIVE (Negative) SARS-CoV-2 RNA (RT-PCR) NEGATIVE (Negative) Independent Interpretation I performed an independent interpretation of an: EKG (I personally reviewed and interpreted the patient's EKG shows sinus rhythm) and Plain X-Ray (I personally reviewed and interpreted patient's chest x-ray which is unremarkable) External Record Review External record reviewed: Inpatient record (Records from prior admission was reviewed, patient was admitted for alcohol withdrawal and required phenobarb) Discharge Plan Discharge Clinical Impression: Hypomagnesemia, Hypokalemia due to inadequate potassium intake, AA (alcohol abuse), Withdrawal symptoms, alcohol Patient Disposition: Admitted As Inpatient
[2023-12-21 13:56] LABS: Ethanol 237 mg/dL; Magnesium 0.7 mg/dL (1.6-2.6)
--- NOTE | 2023-12-21 14:10 | PC.NURSE ---
patient a&ox3, iv inserted, labs previously drawn, ekg performed, pt placed on personnel monitor, pt awaiting provider, call louise within reach, will continue to monitor
[2023-12-21] MEDS: Potassium Chloride/H20 10 MEQ/100 ML PIGGYBACK 100 MEQ IV ×4 (14:28→18:23)
[2023-12-21] MEDS: Potassium Chloride ER 20 MEQ TAB.ER.PRT 40 MEQ PO (14:28)
[2023-12-21] MEDS: 0.9 % Sodium Chloride 500 ML 999 ML IV (14:28)
[2023-12-21] MEDS: Magnesium Sulfate/H2O 2 GM/50 ML PIGGYBACK IV (14:28)
[2023-12-21] MEDS: Acetaminophen 325 MG TABLET 975 MG PO (14:31)
[2023-12-21] MEDS: Buprenorphine/Naloxone 8/2 mg FILM 1 FILM SUBLINGUAL (14:39)
--- NOTE | 2023-12-21 14:41 | PC.NURSE ---
patient a&ox3, iv K & mag started, IVF running per order, monitoring engineer nsr/st 90-100s, vitals stable, pt medicated with suboxone, hospitalist at bedside, will continue to monitor
--- NOTE | 2023-12-21 14:56 | PM.IMHP ---
History of Present Illness Date of Service: 12/21/23 Chief Complaint: weakness 53F PMH opidate dependece, etoh dependence, cocaine use, alcoholic fatty liver disease, presented with weakness. Patient is a vague historian. Reports 2 weeks of lower extremity weakness, numbness, tingling and pain. Per triage note was also complaining of shortness of breath. Currently denying. Also mentioned epigastric pain at some point but currently denying. Patient's last drink of alcohol was night prior to presentation. Labs with elevated bilirubin, hypokalemia, hypomagnesemia. Review of Systems Review of Systems: Yes all other systems are reviewed and are negative [facility] Medical History Alcohol use disorder, severe, dependence Pancreatitis Polysubstance use disorder Social History Household Members: Family Housing: House Do you presently have visiting nurse or other home services: No Alcohol intake: current Alcohol intake frequency: 3 or more drinks per day Alcohol type: wine Patient Tobacco Use Status: Current everyday Tobacco user Tobacco use type: Cigarette Smoked in Last 30 Days: Yes Second Hand Smoke Exposure: No Use of substances other than those prescribed or required for medical reasons: No Substance Use Type: Crack/Cocaine Advance Directives: No Advance Directives Information Provided: Yes Patient : No service: No Meds Allergies Allergy/AdvReac Type Severity Reaction Status Date / Time Penicillins Allergy Unknown Rash Verified 12/21/23 11:09 aspirin AdvReac Intermediate Palpitation Verified 12/21/23 11:09 s codeine AdvReac Unknown Palpitation Verified 12/21/23 11:09 s Active Medications: Current Medications Magnesium Sulfate (Magnesium Sulfate/H2o) 2 gm in 50 mls @ 25 mls/hr IV ONCE ONE Stop: 12/21/23 15:55 Last Admin: 12/21/23 14:28 Dose: 25 mls/hr Potassium Chloride (Potassium Chloride/H20) 10 meq in 100 mls @ 100 mls/hr IV Q1H [facility] Stop: 12/21/23 17:59 Last Admin: 12/21/23 14:28 Dose: 100 mls/hr Magnesium Oxide (Magnesium Oxide 400 Mg Tablet) 800 mg PO BID [facility] Pharmacy Consult (Consult Rx Etoh Phenob Im/Po) 1 each MISCELLANE ONCE PRN; Protocol PRN Reason: Consult order Home Medications ?Medication ?Instructions ?Recorded ?Confirmed ?Last Taken ?Type clonidine HCl 0.1 mg tablet 0.1 mg PO QHS PRN anxiety/insomnia 08/08/23 11/08/23 Unknown History hydroxyzine HCl 50 mg tablet 50 mg PO TID PRN Anxiety 11/08/23 11/08/23 Unknown History thiamine HCl (vitamin B1) 50 mg 50 mg PO DAILY 11/08/23 11/08/23 Unknown History tablet Physical Exam Vital Signs and Narrative: Vital Signs: Last Vital Signs Temp 97.6 F 12/21/23 14:40 Pulse 92 12/21/23 14:40 Resp 20 12/21/23 14:40 BP 124/83 12/21/23 14:40 Pulse Ox 88 L 12/21/23 14:40 O2 Del Method Room Air 12/21/23 14:40 BMI result Body Mass Index 20.0 General: AO X 3, anxious Resp: CTA bilateral, no accessory muscles used CVS: S1,S2,RRR GI: soft, non tender, non distended Neuro: motor grossly intact, alert Results Labs 12/21/23 11:19 12/21/23 11:19 Labs: Laboratory Results - last 24 hr 12/21/23 11:19 MCV 94.0 MCH 35.2 H MCHC 37.5 H RDW 13.4 Plt Count 108 L MPV 11.5 Immature Gran % (Auto) 0.4 Neut % (Auto) 69.8 Lymph % (Auto) 21.1 [place] % (Auto) 7.5 Eos % (Auto) 0.5 Baso % (Auto) 0.7 Lymph # (Auto) 2.4 [place] # (Auto) 0.9 Eos # (Auto) 0.1 Baso # (Auto) 0.1 Abs Immat Gran (auto) 0.05 H Absolute Neuts (auto) 8.0 Absolute Nucleated RBC 0.000 Nucleated RBC % (auto) 0.0 Anion Gap 15 Estim Creat Clear Calc 76.2 Estimated GFR > 60 Random Glucose 119 H Calcium 7.4 L Magnesium 0.7 L* Total Bilirubin 3.8 H AST 166 H ALT 30 Alkaline Phosphatase 204 H Troponin I High Sens < 2.7 Total Protein 7.5 Albumin 2.6 L Lipase 10 Ethyl Alcohol 237 Assessment and Plan (1) Abnormal laboratory test: Status: Acute Plan 53F PMH opidate dependece, etoh dependence, cocaine use, alcoholic fatty liver disease, presented with weakness Generalized weakness due to acute hypokalemia and acute hypomagnesemia due to alcohol dependence Replace electrolytes and monitor closely Alcohol dependence with withdrawal Phenobarbital protocol and CIWA Alcoholic fatty liver disease with acute alcoholic hepatitis Abstinence recommended, high-protein diet, monitor LFTs Opiate dependence Suboxone DVT prophylaxis with Lovenox Full Code Patient with significant electrolyte abnormalities will likely take at least 2 midnights to replace Quality Stroke Does the patient have a stroke diagnosis?: No VTE Prior VTE?: No VTE Risk Level:: Medical - moderate - high VTE Device Contraindication: Treatment Not Indicated VTE Drug Contraindication: N/A - Med Ordered
[2023-12-21 15:20] LABS: Influenza A PCR NEGATIVE (Negative); Influenza B PCR NEGATIVE (Negative); Resp Syncy Virus RNA Qual PCR NEGATIVE (Negative); SARS COV2 PCR INHOUSE NEGATIVE (Negative)
--- NOTE | 2023-12-21 15:24 | PHA.MEDREC ---
Pharmacy Consult ? Medication Reconciliation Pharmacy has completed the medication reconciliation. Patient reported most medications. The only medication patient unsure of was spironolactone but this was just filled 12/07/23 for a 30 day supply. Christina Pizarro, PharmD
[2023-12-21] MEDS: PHENobarbitaL sodium 130 MG/ML IM ONCE 137.8 MG IM (15:55)
[2023-12-21] MEDS: PHENobarbitaL sodium 130 MG/ML VIAL IM Q3Hx2 102.7 MG IM ×2 (18:22→23:05)
--- NOTE | 2023-12-21 19:01 | MHC.EDTECH ---
[facility] care @1900, received report from [employer] Rach
--- NOTE | 2023-12-21 19:28 | PC.NURSE ---
This RN assumed pt care @ 1900. Plan of care ongoing.
[2023-12-21] MEDS: Magnesium Oxide 400 MG TABLET 800 MG PO (23:07)
[2023-12-21] MEDS: 0.9 % Sodium Chloride Flush 3 ML SYRINGE IVFLUSH (23:08)
[2023-12-22] VITALS (7 sets, daily range): BP systolic 115–134; BP diastolic 78–87; PULSE 81–92; RESP 16–18; TEMP 36.2–37.2; O2SAT 88–94
[2023-12-22] MEDS: Acetaminophen 325 MG TABLET 650 MG PO (03:42)
[2023-12-22] MEDS: PHENobarbitaL sodium 130 MG/ML VIAL 65 MG IM (04:01)
[2023-12-22] MEDS: ondansetron HCL 4 MG/2 ML VIAL IVPUSH (04:47)
[2023-12-22 07:17] LABS: Hematocrit 31.6 % (37.0-47.0); Hemoglobin 11.5 g/dl (12.0-16.0); Mean Corpuscular HGB Conc 36.4 g/dl (31.0-35.0); Mean Corpuscular Hemoglobin 35.4 pg (27.0-33.0); Mean Corpuscular Volume 97.2 fL (80.0-98.0); Mean Platelet Volume 12.1 fL (9.4-12.3); Red Blood Count 3.25 X10*6/uL (4.20-5.50); Red Cell Distribution Width 14.1 % (11.0-16.0); White Blood Count 10.9 X10*3/uL (4.8-10.8)
[2023-12-22 07:25] LABS: Platelet Count 95 X10*3/uL (160-400)
[2023-12-22 07:38] LABS: Alanine Aminotransferase 28 U/L (0-31); Albumin Level 2.3 g/dL (3.5-5.0); Alkaline Phosphatase 181 U/L (39-117); Anion Gap 11 (12-20); Aspartate Amino Transferase 156 U/L (5-31); Bilirubin Direct 2.4 mg/dL (0.0-0.5); Bilirubin Total 3.9 mg/dL (0.0-1.0); Blood Urea Nitrogen 7 mg/dL (9-16); Calcium 6.8 mg/dL (8.4-10.2); Carbon Dioxide 31 mmol/L (22-29); Chloride 98 mmol/L (96-108); Creatinine Clr Calc Pharmacy 76.2; Estimated Glomerular Filt Rate > 60; Glucose Fasting 114 mg/dL (60-99); Potassium 3.2 mmol/L (3.3-5.1); Sodium 137 mmol/L (135-145); Total Protein 6.6 g/dL (6.5-8.0)
[2023-12-22 07:44] LABS: Magnesium 1.1 mg/dL (1.6-2.6)
[2023-12-22] MEDS: Potassium Chloride ER 20 MEQ TAB.ER.PRT 40 MEQ PO (08:28)
[2023-12-22] MEDS: Buprenorphine/Naloxone 8/2 mg FILM 1 FILM BUCCAL (08:28)
[2023-12-22] MEDS: Magnesium Sulfate/H2O 2 GM/50 ML PIGGYBACK IV ×2 (08:56→20:03)
[2023-12-22] MEDS: Enoxaparin Sodium 40 MG/0.4 ML SYRINGE SUBCUT (09:08)
[2023-12-22] MEDS: diphenhydrAMINE HCL 50 MG/ML VIAL 12.5 MG IVPUSH (09:40)
--- NOTE | 2023-12-22 10:14 | P.PNIM_ITS ---
Subjective Subjective Date of Service: 12/22/23 Interval History: sob Physical Exam 2 Vital Signs: Vital Signs: Last Vital Signs Temp 97.6 F 12/22/23 07:11 Pulse 87 12/22/23 07:11 Resp 18 12/22/23 07:11 BP 123/78 12/22/23 07:11 Pulse Ox 94 12/22/23 08:42 O2 Del Method Nasal Cannula 12/22/23 08:42 O2 Flow Rate 2 12/22/23 08:42 BMI result Body Mass Index 20.0 General: AO X 3, acute distress Resp: CTA bilateral, no accessory muscles used CVS: S1,S2,RRR GI: soft, non tender, non distended Neuro: motor grossly intact, alert Psych: appropriate affect, appropriate insight Objective Data Active Medications Acetaminophen (Acetaminophen 325 Mg Tablet) 650 mg PO Q6H PRN PRN Reason: Pain, Mild (Pain Scale 1-3) Last Admin: 12/22/23 03:42 Dose: 650 mg Buprenorphine/Naloxone (Buprenorphine/Naloxone 8/2 Mg Film) 1 film BUCCAL DAILY [facility] Last Admin: 12/22/23 08:28 Dose: 1 film Documented By: NICOLETTE Enoxaparin Sodium (Enoxaparin Sodium 40 Mg/0.4 Ml Syringe) 40 mg SUBCUT Q24H [facility] Last Admin: 12/22/23 09:08 Dose: 40 mg Documented By: NICOLETTE Folic Acid (Folic Acid 1 Mg Tablet) 1 mg PO DAILY [facility] Last Admin: 12/22/23 09:08 Dose: Not Given Documented By: NICOLETTE Non-Admin Reason: pt vomitting Magnesium Sulfate (Magnesium Sulfate/H2o) 2 gm in 50 mls @ 25 mls/hr IV ONCE ONE Stop: 12/22/23 23:11 Magnesium Oxide (Magnesium Oxide 400 Mg Tablet) 800 mg PO BID [facility] Last Admin: 12/22/23 09:08 Dose: Not Given Documented By: NICOLETTE Non-Admin Reason: pt vomitting Ondansetron HCl (Ondansetron Hcl 4 Mg/2 Ml Vial) 4 mg IVPUSH Q6H PRN PRN Reason: Nausea and Vomiting Last Admin: 12/22/23 04:47 Dose: 4 mg Documented By: RUTHY Pharmacy Consult (Consult Rx Etoh Phenob Im/Po) 1 each MISCELLANE ONCE PRN; Protocol PRN Reason: Consult order Phenobarbital (Phenobarbital 15 Mg Tablet) 45 mg PO BID [facility]; Protocol Stop: 12/23/23 21:01 Last Admin: 12/22/23 09:08 Dose: Not Given Documented By: NICOLETTE Non-Admin Reason: pt vomitting Phenobarbital (Phenobarbital 15 Mg Tablet) 15 mg PO BID [facility]; Protocol Stop: 12/25/23 21:01 Phenobarbital (Phenobarbital 15 Mg Tablet) 15 mg PO DAILY [facility]; Protocol Stop: 12/27/23 09:01 Sodium Chloride (0.9 % Sodium Chloride Flush 3 Ml Syringe) 3 ml IVFLUSH QSHIFT [facility] Last Admin: 12/22/23 09:06 Dose: Not Given Documented By: NICOLETTE Non-Admin Reason: IV Running Thiamine HCl (Thiamine Hcl 100 Mg Tablet) 100 mg PO DAILY [facility] Last Admin: 12/22/23 09:08 Dose: Not Given Documented By: NICOLETTE Non-Admin Reason: pt vomitting Labs 12/22/23 06:39 12/22/23 06:39 Labs: Laboratory Results - last 24 hr 12/21/23 12/21/23 12/22/23 11:19 13:46 06:39 MCV 94.0 97.2 MCH 35.2 H 35.4 H MCHC 37.5 H 36.4 H RDW 13.4 14.1 Plt Count 108 L 95 L MPV 11.5 12.1 Immature Gran % (Auto) 0.4 Neut % (Auto) 69.8 Lymph % (Auto) 21.1 [place] % (Auto) 7.5 Eos % (Auto) 0.5 Baso % (Auto) 0.7 Lymph # (Auto) 2.4 [place] # (Auto) 0.9 Eos # (Auto) 0.1 Baso # (Auto) 0.1 Abs Immat Gran (auto) 0.05 H Absolute Neuts (auto) 8.0 Absolute Nucleated RBC 0.000 0.000 Nucleated RBC % (auto) 0.0 0.0 Anion Gap 15 11 L Estim Creat Clear Calc 76.2 76.2 Estimated GFR > 60 > 60 Random Glucose 119 H Fasting Glucose 114 H Calcium 7.4 L 6.8 L D Magnesium 0.7 L* 1.1 L* Total Bilirubin 3.8 H 3.9 H Direct Bilirubin 2.4 H AST 166 H 156 H ALT 30 28 Alkaline Phosphatase 204 H 181 H Troponin I High Sens < 2.7 Total Protein 7.5 6.6 Albumin 2.6 L 2.3 L Lipase 10 Ethyl Alcohol 237 Influenza Type A (PCR) NEGATIVE Influenza Type B (PCR) NEGATIVE RSV RNA Qual (PCR) NEGATIVE SARS-CoV-2 RNA (RT-PCR) NEGATIVE Assessment and Plan (1) Withdrawal symptoms, alcohol: Status: Acute Plan 53F PMH opidate dependece, etoh dependence, cocaine use, alcoholic fatty liver disease, presented with weakness Generalized weakness due to acute hypokalemia and acute hypomagnesemia due to alcohol dependence further complicated by etoh neuropathy Replace electrolytes and monitor closely acute hypoxic respiratory failure ? etiology - cxr normal, lungs sound clear check cta chest Alcohol dependence with withdrawal Phenobarbital protocol and CIWA Alcoholic fatty liver disease with acute alcoholic hepatitis Abstinence recommended, high-protein diet, monitor LFTs Opiate dependence Suboxone DVT prophylaxis with Lovenox Full Code reason for continued hospitalization:hypoxia Quality Stroke Does the patient have a stroke diagnosis?: No VTE Prior VTE?: No VTE Risk Level:: Medical - moderate - high VTE Device Contraindication: Treatment Not Indicated VTE Drug Contraindication: N/A - Med Ordered
--- NOTE | 2023-12-22 10:23 | MHC.CM.PN ---
Pt self-care, lives at home with her sister who will transport her. No HCP, declined at this time. No PCP, local list given to pt.
[2023-12-22] MEDS: iohexoL 350 MG/ML 100 ML INFUS..BTL IV (10:32)
[2023-12-22] MEDS: PHENobarbitaL sodium 65 MG/ML VIAL IM (10:38)
--- NOTE | 2023-12-22 14:36 | PC.NURSE ---
Crushed pt PO pills in AM and mixed with her breakfast yogurt per pt request- pt took one bite and immediately vomited mult times, yellow bile looking mixed with meds. Couldn't tolerate PO medication. PRN zofran unable to be given as was admin it a few hr prior. Pt worrying about her pheno stating she felt shaky withdrawing from etoh but couldnt tolerate meds. MD notifed. 65mg IM pheno admin with good effect. 13.5mg IV Benadryl one times dose also admin for nausea. No emesis since. Continuing to monitor for other needs.
[2023-12-22] MEDS: 0.9 % Sodium Chloride Flush 3 ML SYRINGE IVFLUSH (15:20)
[2023-12-22] MEDS: Magnesium Oxide 400 MG TABLET 800 MG PO (20:03)
[2023-12-22] MEDS: PHENobarbitaL 15 MG TABLET 45 MG PO (20:03)
[2023-12-23] VITALS (7 sets, daily range): BP systolic 86–126; BP diastolic 51–84; PULSE 76–97; RESP 14–18; TEMP 36.2–36.8; O2SAT 89–94
[2023-12-23] MEDS: 0.9 % Sodium Chloride Flush 3 ML SYRINGE IVFLUSH ×3 (00:08→22:25)
[2023-12-23] MEDS: Acetaminophen 325 MG TABLET 650 MG PO ×3 (02:39→22:23)
[2023-12-23 07:18] LABS: Hematocrit 32.4 % (37.0-47.0); Hemoglobin 11.7 g/dl (12.0-16.0); Mean Corpuscular HGB Conc 36.1 g/dl (31.0-35.0); Mean Platelet Volume 11.9 fL (9.4-12.3); Red Blood Count 3.34 X10*6/uL (4.20-5.50); Red Cell Distribution Width 14.1 % (11.0-16.0); White Blood Count 9.8 X10*3/uL (4.8-10.8)
[2023-12-23 07:19] LABS: Platelet Count 83 X10*3/uL (160-400)
[2023-12-23 07:26] LABS: INTERNATIONAL NORM RATIO 1.6 (0.9-1.1); Prothrombin Time 18.9 SEC (11.1-13.3)
[2023-12-23 07:46] LABS: Alanine Aminotransferase 24 U/L (0-31); Albumin Level 2.1 g/dL (3.5-5.0); Alkaline Phosphatase 181 U/L (39-117); Anion Gap 11 (12-20); Aspartate Amino Transferase 129 U/L (5-31); Bilirubin Direct 2.7 mg/dL (0.0-0.5); Bilirubin Total 4.2 mg/dL (0.0-1.0); Blood Urea Nitrogen 7 mg/dL (9-16); Calcium 7.1 mg/dL (8.4-10.2); Carbon Dioxide 30 mmol/L (22-29); Chloride 99 mmol/L (96-108); Creatinine Clr Calc Pharmacy 102.9; Estimated Glomerular Filt Rate > 60; Glucose Fasting 146 mg/dL (60-99); Magnesium 1.9 mg/dL (1.6-2.6); Potassium 3.1 mmol/L (3.3-5.1); Sodium 137 mmol/L (135-145); Total Protein 6.4 g/dL (6.5-8.0)
[2023-12-23] MEDS: Buprenorphine/Naloxone 8/2 mg FILM 1 FILM BUCCAL (09:01)
[2023-12-23] MEDS: PHENobarbitaL 15 MG TABLET 45 MG PO ×2 (09:02→22:06)
[2023-12-23] MEDS: Folic Acid 1 MG TABLET PO (09:02)
[2023-12-23] MEDS: Magnesium Oxide 400 MG TABLET 800 MG PO ×2 (09:02→22:06)
[2023-12-23] MEDS: Thiamine HCL 100 MG TABLET PO (09:02)
[2023-12-23] MEDS: Enoxaparin Sodium 40 MG/0.4 ML SYRINGE SUBCUT (09:02)
--- NOTE | 2023-12-23 09:05 | HO.PM.IMPN ---
Subjective Subjective Date of Service: 12/23/23 Interval History: weakness Physical Exam Vital Signs: Vital Signs: Last Vital Signs Temp 97.2 F 12/23/23 07:39 Pulse 85 12/23/23 07:39 Resp 17 12/23/23 07:39 BP 86/51 L 12/23/23 07:39 Pulse Ox 94 12/23/23 07:39 O2 Del Method Nasal Cannula 12/23/23 07:39 O2 Flow Rate 2 12/23/23 07:39 BMI result Body Mass Index 20.0 General: AO X 3, acute distress Resp: CTA bilateral, no accessory muscles used CVS: S1,S2,RRR GI: soft, non tender, non distended Neuro: motor grossly intact, alert Psych: appropriate affect, appropriate insight Objective Data Active Medications Acetaminophen (Acetaminophen 325 Mg Tablet) 650 mg PO Q6H PRN PRN Reason: Pain, Mild (Pain Scale 1-3) Last Admin: 12/23/23 02:39 Dose: 650 mg Documented By: YESSENIA Buprenorphine/Naloxone (Buprenorphine/Naloxone 8/2 Mg Film) 1 film BUCCAL DAILY [facility] Last Admin: 12/23/23 09:01 Dose: 1 film Documented By: RHIANNA Enoxaparin Sodium (Enoxaparin Sodium 40 Mg/0.4 Ml Syringe) 40 mg SUBCUT Q24H [facility] Last Admin: 12/23/23 09:02 Dose: 40 mg Documented By: RHIANNA Folic Acid (Folic Acid 1 Mg Tablet) 1 mg PO DAILY [facility] Last Admin: 12/23/23 09:02 Dose: 1 mg Documented By: RHIANNA Magnesium Oxide (Magnesium Oxide 400 Mg Tablet) 800 mg PO BID [facility] Last Admin: 12/23/23 09:02 Dose: 800 mg Documented By: RHIANNA Ondansetron HCl (Ondansetron Hcl 4 Mg/2 Ml Vial) 4 mg IVPUSH Q6H PRN PRN Reason: Nausea and Vomiting Last Admin: 12/22/23 04:47 Dose: 4 mg Documented By: RUTHY Pharmacy Consult (Consult Rx Etoh Phenob Im/Po) 1 each MISCELLANE ONCE PRN; Protocol PRN Reason: Consult order Phenobarbital (Phenobarbital 15 Mg Tablet) 45 mg PO BID [facility]; Protocol Stop: 12/23/23 21:01 Last Admin: 12/23/23 09:02 Dose: 45 mg Documented By: RHIANNA Phenobarbital (Phenobarbital 15 Mg Tablet) 15 mg PO BID [facility]; Protocol Stop: 12/25/23 21:01 Phenobarbital (Phenobarbital 15 Mg Tablet) 15 mg PO DAILY [facility]; Protocol Stop: 12/27/23 09:01 Sodium Chloride (0.9 % Sodium Chloride Flush 3 Ml Syringe) 3 ml IVFLUSH QSHIFT [facility] Last Admin: 12/23/23 09:02 Dose: 3 ml Documented By: RHIANNA Thiamine HCl (Thiamine Hcl 100 Mg Tablet) 100 mg PO DAILY [facility] Last Admin: 12/23/23 09:02 Dose: 100 mg Documented By: RHIANNA Labs 12/23/23 06:48 12/23/23 06:48 Labs: Laboratory Results - last 24 hr 12/23/23 06:48 MCV 97.0 MCH 35.0 H MCHC 36.1 H RDW 14.1 Plt Count 83 L MPV 11.9 Absolute Nucleated RBC 0.000 Nucleated RBC % (auto) 0.0 PT 18.9 H INR 1.6 H Anion Gap 11 L Estim Creat Clear Calc 102.9 Estimated GFR > 60 Fasting Glucose 146 H Calcium 7.1 L Magnesium 1.9 Total Bilirubin 4.2 H Direct Bilirubin 2.7 H AST 129 H ALT 24 Alkaline Phosphatase 181 H Total Protein 6.4 L Albumin 2.1 L Assessment and Plan (1) Withdrawal symptoms, alcohol: Status: Acute Plan 53F PMH opidate dependece, etoh dependence, cocaine use, alcoholic fatty liver disease, presented with weakness Generalized weakness due to acute hypokalemia and acute hypomagnesemia due to alcohol dependence further complicated by etoh neuropathy Replace electrolytes and monitor closely acute hypoxic respiratory failure ? etiology - cta negative for pe, minimal atelectasis showing some ascites ?cause of hypoxia check abd us hypotension due to meds not sepsis Alcohol dependence with withdrawal Phenobarbital protocol and [place] Alcoholic fatty liver disease with acute alcoholic hepatitis Abstinence recommended, high-protein diet, monitor LFTs Opiate dependence Suboxone DVT prophylaxis with Lovenox Full Code reason for continued hospitalization:hypoxia Quality Stroke Does the patient have a stroke diagnosis?: No VTE Prior VTE?: No VTE Risk Level:: Medical - moderate - high VTE Device Contraindication: Treatment Not Indicated VTE Drug Contraindication: N/A - Med Ordered
[2023-12-23] MEDS: Albumin Human 25 % 100 ML IV ×2 (09:29→10:32)
[2023-12-23] MEDS: Potassium Chloride ER 20 MEQ TAB.ER.PRT 40 MEQ PO (09:31)
--- NOTE | 2023-12-23 13:14 | PM.EVENT ---
Event Note Date of Service: 12/23/23 Event Note: Addiction note Patient with AUD medically admitted with hypokalemia. Known to [facility] and outpatient as she is a [facility] Attempted to meet with patient to check in, however she requested to check in at another time as she was not feeling well No follow up necessary--patient will be followed up by [facility] upon discharge Time Spent With Patient Time: Total time managing care of this patient today ____ minutes.
[2023-12-24] VITALS (7 sets, daily range): BP systolic 104–116; BP diastolic 66–78; PULSE 73–98; RESP 18–20; TEMP 36.2–37.1; O2SAT 91–94
[2023-12-24 07:07] LABS: Hematocrit 32.1 % (37.0-47.0); Hemoglobin 11.4 g/dl (12.0-16.0); Mean Corpuscular HGB Conc 35.5 g/dl (31.0-35.0); Mean Corpuscular Hemoglobin 35.2 pg (27.0-33.0); Mean Corpuscular Volume 99.1 fL (80.0-98.0); Mean Platelet Volume 12.2 fL (9.4-12.3); Red Blood Count 3.24 X10*6/uL (4.20-5.50); Red Cell Distribution Width 14.4 % (11.0-16.0); White Blood Count 10.5 X10*3/uL (4.8-10.8)
[2023-12-24 07:13] LABS: Platelet Count 88 X10*3/uL (160-400)
[2023-12-24 07:26] LABS: Alanine Aminotransferase 18 U/L (0-31); Albumin Level 2.5 g/dL (3.5-5.0); Alkaline Phosphatase 151 U/L (39-117); Anion Gap 10 (12-20); Aspartate Amino Transferase 90 U/L (5-31); Bilirubin Direct 2.8 mg/dL (0.0-0.5); Bilirubin Total 4.3 mg/dL (0.0-1.0); Blood Urea Nitrogen 6 mg/dL (9-16); Calcium 7.5 mg/dL (8.4-10.2); Carbon Dioxide 29 mmol/L (22-29); Chloride 102 mmol/L (96-108); Creatinine Clr Calc Pharmacy 99.4; Estimated Glomerular Filt Rate > 60; Glucose Fasting 95 mg/dL (60-99); Magnesium 1.7 mg/dL (1.6-2.6); Potassium 3.7 mmol/L (3.3-5.1); Sodium 137 mmol/L (135-145); Total Protein 6.1 g/dL (6.5-8.0)
[2023-12-24] MEDS: Magnesium Oxide 400 MG TABLET 800 MG PO ×2 (09:40→20:16)
[2023-12-24] MEDS: Enoxaparin Sodium 40 MG/0.4 ML SYRINGE SUBCUT (09:40)
[2023-12-24] MEDS: Buprenorphine/Naloxone 8/2 mg FILM 1 FILM BUCCAL (09:40)
[2023-12-24] MEDS: Folic Acid 1 MG TABLET PO (09:41)
[2023-12-24] MEDS: PHENobarbitaL 15 MG TABLET PO ×2 (09:41→20:15)
[2023-12-24] MEDS: 0.9 % Sodium Chloride Flush 3 ML SYRINGE IVFLUSH ×3 (09:41→19:42)
[2023-12-24] MEDS: Thiamine HCL 100 MG TABLET PO (09:41)
--- NOTE | 2023-12-24 10:43 | P.PNIM_ITS ---
Subjective Subjective Date of Service: 12/24/23 Interval History: weakness, achy Physical Exam 2 Vital Signs: Vital Signs: Last Vital Signs Temp 97.2 F 12/24/23 07:47 Pulse 76 12/24/23 07:47 Resp 20 12/24/23 07:47 BP 113/75 12/24/23 07:47 Pulse Ox 94 12/24/23 07:47 O2 Del Method Nasal Cannula 12/24/23 07:47 O2 Flow Rate 1 12/24/23 07:47 BMI result Body Mass Index 20.0 General: AO X 3, acute distress Resp: CTA bilateral, no accessory muscles used CVS: S1,S2,RRR GI: soft, non tender, non distended Neuro: motor grossly intact, alert Psych: appropriate affect, appropriate insight Objective Data Active Medications Acetaminophen (Acetaminophen 325 Mg Tablet) 650 mg PO Q6H PRN PRN Reason: Pain, Mild (Pain Scale 1-3) Last Admin: 12/23/23 22:23 Dose: 650 mg Documented By: MATT Buprenorphine/Naloxone (Buprenorphine/Naloxone 8/2 Mg Film) 1 film BUCCAL DAILY [facility] Last Admin: 12/24/23 09:40 Dose: 1 film Documented By: SAMI Enoxaparin Sodium (Enoxaparin Sodium 40 Mg/0.4 Ml Syringe) 40 mg SUBCUT Q24H [facility] Last Admin: 12/24/23 09:40 Dose: 40 mg Documented By: SAMI Folic Acid (Folic Acid 1 Mg Tablet) 1 mg PO DAILY [facility] Last Admin: 12/24/23 09:41 Dose: 1 mg Documented By: SAMI Magnesium Oxide (Magnesium Oxide 400 Mg Tablet) 800 mg PO BID [facility] Last Admin: 12/24/23 09:40 Dose: 800 mg Documented By: SAMI Ondansetron HCl (Ondansetron Hcl 4 Mg/2 Ml Vial) 4 mg IVPUSH Q6H PRN PRN Reason: Nausea and Vomiting Last Admin: 12/22/23 04:47 Dose: 4 mg Documented By: RUTHY Pharmacy Consult (Consult Rx Etoh Phenob Im/Po) 1 each MISCELLANE ONCE PRN; Protocol PRN Reason: Consult order Phenobarbital (Phenobarbital 15 Mg Tablet) 15 mg PO BID [facility]; Protocol Stop: 12/25/23 21:01 Last Admin: 12/24/23 09:41 Dose: 15 mg Documented By: SAMI Phenobarbital (Phenobarbital 15 Mg Tablet) 15 mg PO DAILY [facility]; Protocol Stop: 12/27/23 09:01 Sodium Chloride (0.9 % Sodium Chloride Flush 3 Ml Syringe) 3 ml IVFLUSH QSHIFT [facility] Last Admin: 12/24/23 09:41 Dose: 3 ml Documented By: SAMI Thiamine HCl (Thiamine Hcl 100 Mg Tablet) 100 mg PO DAILY [facility] Last Admin: 12/24/23 09:41 Dose: 100 mg Documented By: SAMI Labs 12/24/23 06:12 12/24/23 06:12 Labs: Laboratory Results - last 24 hr 12/24/23 06:12 MCV 99.1 H MCH 35.2 H MCHC 35.5 H RDW 14.4 Plt Count 88 L MPV 12.2 Absolute Nucleated RBC 0.000 Nucleated RBC % (auto) 0.0 Anion Gap 10 L Estim Creat Clear Calc 99.4 Estimated GFR > 60 Fasting Glucose 95 Calcium 7.5 L Magnesium 1.7 Total Bilirubin 4.3 H Direct Bilirubin 2.8 H AST 90 H ALT 18 Alkaline Phosphatase 151 H Total Protein 6.1 L Albumin 2.5 L Assessment and Plan (1) Withdrawal symptoms, alcohol: Status: Acute Plan 53F PMH opiate dependece, etoh dependence, cocaine use, alcoholic fatty liver disease, presented with weakness Generalized weakness due to acute hypokalemia and acute hypomagnesemia due to alcohol dependence further complicated by etoh neuropathy Replacing electrolytes and monitoring closely acute hypoxic respiratory failure ? etiology - cta negative for pe, minimal atelectasis showing some ascites ?cause of hypoxia plan for paracentesis 12/25/23 hypotension due to meds not sepsis Alcohol dependence with withdrawal Phenobarbital protocol and [facility] Alcoholic fatty liver disease with acute alcoholic hepatitis Abstinence recommended, high-protein diet, monitor LFTs Opiate dependence Suboxone DVT prophylaxis with Lovenox Full Code reason for continued hospitalization:hypoxia Quality Stroke Does the patient have a stroke diagnosis?: No VTE Prior VTE?: No VTE Risk Level:: Medical - moderate - high VTE Device Contraindication: Treatment Not Indicated VTE Drug Contraindication: N/A - Med Ordered
[2023-12-24] MEDS: Nicotine 21 MG PATCH.TD24 TRANSDERMA (11:27)
[2023-12-24] MEDS: Potassium Chloride ER 20 MEQ TAB.ER.PRT 40 MEQ PO (11:27)
--- NOTE | 2023-12-24 11:35 | PC.NURSE ---
Assumed care of patient at this time.
[2023-12-24] MEDS: ondansetron HCL 4 MG/2 ML VIAL IVPUSH ×2 (11:44→19:41)
[2023-12-24] MEDS: Acetaminophen 325 MG TABLET 650 MG PO (12:23)
[2023-12-24] MEDS: Melatonin 3 MG TABLET 6 MG PO (22:46)
[2023-12-25 04:00] VITALS: BP 111/70; PULSE 78; RESP 19; TEMP 36.9; O2SAT 92
[2023-12-25 06:55] LABS: Mean Corpuscular Hemoglobin 35.4 pg (27.0-33.0); Mean Corpuscular Volume 98.2 fL (80.0-98.0); PLT CLUMP 1; Red Cell Distribution Width 14.9 % (11.0-16.0)
[2023-12-25 06:57] LABS: Hematocrit 31.9 % (37.0-47.0); Hemoglobin 11.5 g/dl (12.0-16.0); Mean Corpuscular HGB Conc 36.1 g/dl (31.0-35.0); Mean Platelet Volume 11.8 fL (9.4-12.3); Red Blood Count 3.25 X10*6/uL (4.20-5.50)
[2023-12-25 07:41] LABS: Alanine Aminotransferase 15 U/L (0-31); Albumin Level 2.3 g/dL (3.5-5.0); Alkaline Phosphatase 150 U/L (39-117); Anion Gap 8 (12-20); Aspartate Amino Transferase 73 U/L (5-31); Bilirubin Direct 2.4 mg/dL (0.0-0.5); Bilirubin Total 3.5 mg/dL (0.0-1.0); Blood Urea Nitrogen 7 mg/dL (9-16); Calcium 7.8 mg/dL (8.4-10.2); Carbon Dioxide 27 mmol/L (22-29); Chloride 106 mmol/L (96-108); Creatinine Clr Calc Pharmacy 102.9; Estimated Glomerular Filt Rate > 60; Glucose Fasting 109 mg/dL (60-99); Magnesium 1.4 mg/dL (1.6-2.6); Sodium 137 mmol/L (135-145)
[2023-12-25 08:00] VITALS: BP 115/73; PULSE 81; RESP 20; TEMP 36.6; O2SAT 92
[2023-12-25 08:01] LABS: White Blood Count 10.5 X10*3/uL (4.8-10.8)
[2023-12-25 08:02] LABS: Platelet Count 97 X10*3/uL (160-400)
[2023-12-25] MEDS: Thiamine HCL 100 MG TABLET PO (08:53)
[2023-12-25] MEDS: Buprenorphine/Naloxone 8/2 mg FILM 1 FILM BUCCAL (08:53)
[2023-12-25] MEDS: PHENobarbitaL 15 MG TABLET PO ×2 (08:53→22:08)
[2023-12-25] MEDS: Folic Acid 1 MG TABLET PO (08:53)
[2023-12-25] MEDS: Magnesium Oxide 400 MG TABLET 800 MG PO ×2 (08:53→22:09)
[2023-12-25] MEDS: Enoxaparin Sodium 40 MG/0.4 ML SYRINGE SUBCUT (08:55)
[2023-12-25] MEDS: 0.9 % Sodium Chloride Flush 3 ML SYRINGE IVFLUSH ×3 (08:55→22:14)
[2023-12-25] MEDS: Magnesium Sulfate/H2O 2 GM/50 ML PIGGYBACK IV (08:55)
--- NOTE | 2023-12-25 10:45 | HO.PM.IMPN ---
Subjective Subjective Date of Service: 12/25/23 Interval History: bit stronger today, nausea Physical Exam Vital Signs: Vital Signs: Last Vital Signs Temp 97.9 F 12/25/23 08:00 Pulse 81 12/25/23 08:00 Resp 20 12/25/23 08:00 BP 115/73 12/25/23 08:00 Pulse Ox 92 12/25/23 08:00 O2 Del Method Nasal Cannula 12/25/23 08:00 O2 Flow Rate 1 12/25/23 08:00 BMI result Body Mass Index 20.0 General: AO X 3, acute distress Resp: CTA bilateral, no accessory muscles used CVS: S1,S2,RRR GI: soft, non tender, non distended Neuro: motor grossly intact, alert Psych: appropriate affect, appropriate insight Objective Data Active Medications Acetaminophen (Acetaminophen 325 Mg Tablet) 650 mg PO Q6H PRN PRN Reason: Pain, Mild (Pain Scale 1-3) Last Admin: 12/24/23 12:23 Dose: 650 mg Documented By: LETA Buprenorphine/Naloxone (Buprenorphine/Naloxone 8/2 Mg Film) 1 film BUCCAL DAILY [facility] Last Admin: 12/25/23 08:53 Dose: 1 film Documented By: MARIAN Enoxaparin Sodium (Enoxaparin Sodium 40 Mg/0.4 Ml Syringe) 40 mg SUBCUT Q24H [facility] Last Admin: 12/25/23 08:55 Dose: 40 mg Documented By: MARIAN Folic Acid (Folic Acid 1 Mg Tablet) 1 mg PO DAILY [facility] Last Admin: 12/25/23 08:53 Dose: 1 mg Documented By: MARIAN Magnesium Oxide (Magnesium Oxide 400 Mg Tablet) 800 mg PO BID [facility] Last Admin: 12/25/23 08:53 Dose: 800 mg Documented By: MARIAN Melatonin (Melatonin 3 Mg Tablet) 6 mg PO BEDTIME PRN PRN Reason: Sleep Last Admin: 12/24/23 22:46 Dose: 6 mg Documented By: ELIZABETH Nicotine (Nicotine 21 Mg Patch.Td24) 21 mg TRANSDERMA DAILY [facility] Last Admin: 12/25/23 08:54 Dose: Not Given Documented By: MARIAN Non-Admin Reason: Patient Refused Ondansetron HCl (Ondansetron Hcl 4 Mg/2 Ml Vial) 4 mg IVPUSH Q6H PRN PRN Reason: Nausea and Vomiting Last Admin: 12/24/23 19:41 Dose: 4 mg Documented By: ELIZABETH Pharmacy Consult (Consult Rx Etoh Phenob Im/Po) 1 each MISCELLANE ONCE PRN; Protocol PRN Reason: Consult order Phenobarbital (Phenobarbital 15 Mg Tablet) 15 mg PO BID [facility]; Protocol Stop: 12/25/23 21:01 Last Admin: 12/25/23 08:53 Dose: 15 mg Documented By: MARIAN Phenobarbital (Phenobarbital 15 Mg Tablet) 15 mg PO DAILY [facility]; Protocol Stop: 12/27/23 09:01 Sodium Chloride (0.9 % Sodium Chloride Flush 3 Ml Syringe) 3 ml IVFLUSH QSHIFT [facility] Last Admin: 12/25/23 08:55 Dose: 3 ml Documented By: MARIAN Thiamine HCl (Thiamine Hcl 100 Mg Tablet) 100 mg PO DAILY [facility] Last Admin: 12/25/23 08:53 Dose: 100 mg Documented By: MARIAN Labs 12/25/23 06:39 12/25/23 06:39 Labs: Laboratory Results - last 24 hr 12/25/23 06:39 MCV 98.2 H MCH 35.4 H MCHC 36.1 H RDW 14.9 Plt Count 97 L MPV 11.8 Absolute Nucleated RBC 0.000 Nucleated RBC % (auto) 0.0 Anion Gap 8 L Estim Creat Clear Calc 102.9 Estimated GFR > 60 Fasting Glucose 109 H Calcium 7.8 L Magnesium 1.4 L* Total Bilirubin 3.5 H Direct Bilirubin 2.4 H AST 73 H ALT 15 Alkaline Phosphatase 150 H Total Protein 6.0 L Albumin 2.3 L Assessment and Plan (1) Withdrawal symptoms, alcohol: Status: Acute Plan 53F PMH opiate dependece, etoh dependence, cocaine use, alcoholic fatty liver disease, presented with weakness Generalized weakness due to acute hypokalemia and acute hypomagnesemia due to alcohol dependence further complicated by etoh neuropathy Replacing electrolytes and monitoring closely strength improving acute hypoxic respiratory failure ? etiology - cta negative for pe, minimal atelectasis showing some ascites ?cause of hypoxia plan for paracentesis 12/25/23 hypotension due to meds not sepsis Alcohol dependence with withdrawal Phenobarbital protocol and CIWA - imrpoved Alcoholic fatty liver disease with acute alcoholic hepatitis Abstinence recommended, high-protein diet, monitor LFTs - improving Opiate dependence Suboxone DVT prophylaxis with Lovenox Full Code reason for continued hospitalization:hypoxia Quality Stroke Does the patient have a stroke diagnosis?: No VTE Prior VTE?: No VTE Risk Level:: Medical - moderate - high VTE Device Contraindication: Treatment Not Indicated VTE Drug Contraindication: N/A - Med Ordered
[2023-12-25 11:36] VITALS: BP 117/73; PULSE 85; RESP 20; TEMP 36.9; O2SAT 92
[2023-12-25] MEDS: ondansetron HCL 4 MG/2 ML VIAL IVPUSH (11:49)
[2023-12-25] MEDS: Lidocaine HCl 1 % MPF 5 ML VIAL SUBCUT (13:07)
[2023-12-25 13:36] LABS: WBC Peritoneal Fluid 0.126 X10*3/uL
[2023-12-25 13:38] LABS: RBC Peritoneal Fluid < 0.002 X10*6/uL
[2023-12-25] MEDS: Acetaminophen 325 MG TABLET 650 MG PO (14:00)
--- NOTE | 2023-12-25 14:13 | MHC.CM.PN ---
EMR REVIEWED, PT REMAINS HYPOXIC AND W/HYPOMAGNESEMIA/ETOH WITHDRAWAL, NO PLAN FOR DC AT THIS TIME, CM WILL CONT TO FOLLOW DC NEEDS.
[2023-12-25 14:32] LABS: BF Shift QC OK YES; Basophils Peritoneal Fl 0 %; Eosinophils Peritoneal Fl 0 %; Lymphocyte Peritoneal Fl 32 %; Man Diluent Bkgrd OK YES; Monocytes Peritoneal Fl 9 %; Neutrophils Peritoneal Fluid 13 %; Other Peritioneal Fl 46 %
[2023-12-25] MEDS: PHENobarbitaL 30 MG TABLET 60 MG PO (15:15)
[2023-12-25 15:53] VITALS: BP 101/65; PULSE 89; RESP 20; TEMP 36.4; O2SAT 94
[2023-12-25 19:39] VITALS: BP 104/80; PULSE 96; RESP 21; TEMP 36.1; O2SAT 90
[2023-12-25] MEDS: Melatonin 3 MG TABLET 6 MG PO (22:08)
[2023-12-25 23:27] VITALS: BP 99/62; PULSE 74; RESP 21; TEMP 35.9; O2SAT 97
[2023-12-26 04:00] VITALS: BP 101/59; PULSE 79; RESP 21; TEMP 36.2; O2SAT 93
[2023-12-26 07:23] VITALS: BP 110/74; PULSE 86; RESP 20; TEMP 37.2; O2SAT 94
[2023-12-26] MEDS: Folic Acid 1 MG TABLET PO (08:45)
[2023-12-26] MEDS: Thiamine HCL 100 MG TABLET PO (08:45)
[2023-12-26] MEDS: PHENobarbitaL 15 MG TABLET PO (08:45)
[2023-12-26] MEDS: Buprenorphine/Naloxone 8/2 mg FILM 1 FILM BUCCAL (08:46)
[2023-12-26] MEDS: Magnesium Oxide 400 MG TABLET 800 MG PO ×2 (08:46→19:41)
[2023-12-26] MEDS: Enoxaparin Sodium 40 MG/0.4 ML SYRINGE SUBCUT (08:47)
[2023-12-26] MEDS: Nicotine 21 MG PATCH.TD24 TRANSDERMA (08:47)
[2023-12-26] MEDS: 0.9 % Sodium Chloride Flush 3 ML SYRINGE IVFLUSH ×3 (08:49→19:48)
--- NOTE | 2023-12-26 10:17 | P.PNIM_ITS ---
Subjective Subjective Date of Service: 12/26/23 Interval History: feeling less bloated after paracentesis, still weak Physical Exam 2 Vital Signs: Vital Signs: Last Vital Signs Temp 98.9 F 12/26/23 07:23 Pulse 86 12/26/23 07:23 Resp 20 12/26/23 07:23 BP 110/74 12/26/23 07:23 Pulse Ox 94 12/26/23 07:23 O2 Del Method Nasal Cannula 12/26/23 07:23 O2 Flow Rate 2 12/26/23 07:23 BMI result Body Mass Index 20.0 General: AO X 3, acute distress Resp: CTA bilateral, no accessory muscles used CVS: S1,S2,RRR GI: soft, non tender, non distended Neuro: motor grossly intact, alert Psych: appropriate affect, appropriate insight Objective Data Active Medications Acetaminophen (Acetaminophen 325 Mg Tablet) 650 mg PO Q6H PRN PRN Reason: Pain, Mild (Pain Scale 1-3) Last Admin: 12/25/23 14:00 Dose: 650 mg Documented By: MARIAN Buprenorphine/Naloxone (Buprenorphine/Naloxone 8/2 Mg Film) 1 film BUCCAL DAILY [facility] Last Admin: 12/26/23 08:46 Dose: 1 film Documented By: JEOVANNY Enoxaparin Sodium (Enoxaparin Sodium 40 Mg/0.4 Ml Syringe) 40 mg SUBCUT Q24H [facility] Last Admin: 12/26/23 08:47 Dose: 40 mg Documented By: JEOVANNY Folic Acid (Folic Acid 1 Mg Tablet) 1 mg PO DAILY [facility] Last Admin: 12/26/23 08:45 Dose: 1 mg Documented By: JEOVANNY Magnesium Oxide (Magnesium Oxide 400 Mg Tablet) 800 mg PO BID [facility] Last Admin: 12/26/23 08:46 Dose: 800 mg Documented By: JEOVANNY Melatonin (Melatonin 3 Mg Tablet) 6 mg PO BEDTIME PRN PRN Reason: Sleep Last Admin: 12/25/23 22:08 Dose: 6 mg Documented By: ELIZABETH Comments: bedtime dose Nicotine (Nicotine 21 Mg Patch.Td24) 21 mg TRANSDERMA DAILY [facility] Last Admin: 12/26/23 08:47 Dose: 21 mg Documented By: JEOVANNY Ondansetron HCl (Ondansetron Hcl 4 Mg/2 Ml Vial) 4 mg IVPUSH Q6H PRN PRN Reason: Nausea and Vomiting Last Admin: 12/25/23 11:49 Dose: 4 mg Documented By: MARIAN Pharmacy Consult (Consult Rx Etoh Phenob Im/Po) 1 each MISCELLANE ONCE PRN; Protocol PRN Reason: Consult order Phenobarbital (Phenobarbital 15 Mg Tablet) 15 mg PO DAILY [facility]; Protocol Stop: 12/27/23 09:01 Last Admin: 12/26/23 08:45 Dose: 15 mg Documented By: JEOVANNY Sodium Chloride (0.9 % Sodium Chloride Flush 3 Ml Syringe) 3 ml IVFLUSH QSHIFT [facility] Last Admin: 12/26/23 08:49 Dose: 3 ml Documented By: JEOVANNY Thiamine HCl (Thiamine Hcl 100 Mg Tablet) 100 mg PO DAILY [facility] Last Admin: 12/26/23 08:45 Dose: 100 mg Documented By: JEOVANNY Labs 12/25/23 06:39 12/25/23 06:39 Labs: Laboratory Results - last 24 hr 12/25/23 12:50 Peritoneal WBC 0.126 Peritoneal RBC < 0.002 Periton Neutrophils 13 Periton Lymphocytes 32 Peritoneal Monocytes 9 Peritoneal Eosinophils 0 Peritoneal Basophils 0 Peritoneal Other Cells 46 Microbiology Microbiology Results: Microbiology 12/25/23 12:50 Gram Stain - Final Ascites Fluid Anaerobic Culture - Preliminary No growth to date. Body Fluid Culture - Preliminary No growth to date. Assessment and Plan (1) Withdrawal symptoms, alcohol: Status: Acute Plan 53F PMH opiate dependece, etoh dependence, cocaine use, alcoholic fatty liver disease, presented with weakness Generalized weakness due to acute hypokalemia and acute hypomagnesemia due to alcohol dependence further complicated by etoh neuropathy Replacing electrolytes and monitoring closely strength improving - will request PT eval acute hypoxic respiratory failure ? etiology - cta negative for pe, minimal atelectasis - check repeat CXR showing some ascites ?cause of hypoxia s/p paracentesis 12/25/23, feels better, but still hypoxic post tap, negative for sbp incentive spirometry, ambulation, wean as tolerated Alcohol dependence with withdrawal Phenobarbital protocol and CIWA - improved Alcoholic fatty liver disease with acute alcoholic hepatitis Abstinence recommended, high-protein diet, monitor LFTs - improving Opiate dependence Suboxone DVT prophylaxis with Lovenox Full Code reason for continued hospitalization:hypoxia Quality Stroke Does the patient have a stroke diagnosis?: No VTE Prior VTE?: No VTE Risk Level:: Medical - moderate - high VTE Device Contraindication: Treatment Not Indicated VTE Drug Contraindication: N/A - Med Ordered
[2023-12-26 10:23] VITALS: BP 110/74; PULSE 86; O2SAT 94
[2023-12-26 11:32] VITALS: BP 119/89; PULSE 78; RESP 20; TEMP 37.3; O2SAT 94
[2023-12-26 16:00] VITALS: BP 119/75; PULSE 75; RESP 20; TEMP 36.3; O2SAT 95
[2023-12-26] MEDS: Acetaminophen 325 MG TABLET 650 MG PO (19:41)
[2023-12-26 19:44] VITALS: BP 107/63; PULSE 93; RESP 21; TEMP 36.9; O2SAT 94
[2023-12-26] MEDS: Melatonin 3 MG TABLET 6 MG PO (20:16)
[2023-12-26] MEDS: PHENobarbitaL 30 MG TABLET PO (20:17)
[2023-12-26] MEDS: ondansetron HCL 4 MG/2 ML VIAL IVPUSH (23:51)
[2023-12-27] VITALS (7 sets, daily range): BP systolic 93–116; BP diastolic 55–77; PULSE 64–88; RESP 16–20; TEMP 36.1–36.9; O2SAT 95–98
[2023-12-27 07:07] LABS: Hematocrit 32.8 % (37.0-47.0); Hemoglobin 11.6 g/dl (12.0-16.0); Mean Corpuscular HGB Conc 35.4 g/dl (31.0-35.0); Mean Corpuscular Hemoglobin 35.3 pg (27.0-33.0); Mean Corpuscular Volume 99.7 fL (80.0-98.0); Mean Platelet Volume 11.6 fL (9.4-12.3); Red Blood Count 3.29 X10*6/uL (4.20-5.50); Red Cell Distribution Width 16.5 % (11.0-16.0); White Blood Count 7.9 X10*3/uL (4.8-10.8)
[2023-12-27 07:09] LABS: Platelet Count 99 X10*3/uL (160-400)
[2023-12-27 07:27] LABS: Alanine Aminotransferase 15 U/L (0-31); Albumin Level 2.3 g/dL (3.5-5.0); Alkaline Phosphatase 146 U/L (39-117); Anion Gap 9 (12-20); Aspartate Amino Transferase 63 U/L (5-31); Bilirubin Direct 1.9 mg/dL (0.0-0.5); Bilirubin Total 2.8 mg/dL (0.0-1.0); Blood Urea Nitrogen 13 mg/dL (9-16); Calcium 8.2 mg/dL (8.4-10.2); Carbon Dioxide 30 mmol/L (22-29); Chloride 105 mmol/L (96-108); Creatinine Clr Calc Pharmacy 93.1; Estimated Glomerular Filt Rate > 60; Glucose Fasting 110 mg/dL (60-99); Sodium 140 mmol/L (135-145); Total Protein 6.1 g/dL (6.5-8.0)
[2023-12-27 07:29] LABS: Magnesium 1.4 mg/dL (1.6-2.6)
[2023-12-27] MEDS: Nicotine 21 MG PATCH.TD24 TRANSDERMA (08:33)
[2023-12-27] MEDS: Thiamine HCL 100 MG TABLET PO (08:34)
[2023-12-27] MEDS: PHENobarbitaL 15 MG TABLET PO (08:34)
[2023-12-27] MEDS: Magnesium Oxide 400 MG TABLET 800 MG PO ×2 (08:34→19:02)
[2023-12-27] MEDS: Folic Acid 1 MG TABLET PO (08:34)
[2023-12-27] MEDS: Enoxaparin Sodium 40 MG/0.4 ML SYRINGE SUBCUT (08:35)
[2023-12-27] MEDS: 0.9 % Sodium Chloride Flush 3 ML SYRINGE IVFLUSH (08:37)
[2023-12-27] MEDS: Magnesium Sulfate/H2O 2 GM/50 ML PIGGYBACK IV (08:41)
[2023-12-27] MEDS: Buprenorphine/Naloxone 8/2 mg FILM 1 FILM BUCCAL (09:27)
[2023-12-27] MEDS: Acetaminophen 325 MG TABLET 650 MG PO (10:30)
--- NOTE | 2023-12-27 14:10 | P.PNIM_ITS ---
Subjective Subjective Date of Service: 12/27/23 Interval History: seen and evaluated still reporting nausea nad vomiting denies fever or chills low magnesium level, and still requires O2 supplement Review of Systems Review of Systems: Yes all other systems are reviewed and are negative Physical Exam 2 Vital Signs: Vital Signs: Last Vital Signs Temp 98.4 F 12/27/23 12:00 Pulse 88 12/27/23 12:00 Resp 18 12/27/23 12:00 BP 93/55 L 12/27/23 12:00 Pulse Ox 97 12/27/23 12:00 O2 Del Method Nasal Cannula 12/27/23 12:00 O2 Flow Rate 2 12/27/23 12:00 BMI result Body Mass Index 20.0 Const: Other: Constitutional : Awake, interactive, in mild distress Neck : Normal inspection, Supple Cardiovascular : RRR, no JVP, no lower extremity edema Respiratory : good bilateral air entry, no crackles, wheezes or rhonchi Gastrointestinal: soft, lax, Normal bowel sounds, Non tender Skin : Warm, Dry Neurological : Alert & oriented x3, No focal deficit Objective Data Active Medications Acetaminophen (Acetaminophen 325 Mg Tablet) 650 mg PO Q6H PRN PRN Reason: Pain, Mild (Pain Scale 1-3) Last Admin: 12/27/23 10:30 Dose: 650 mg Documented By: GARFIELD Buprenorphine/Naloxone (Buprenorphine/Naloxone 8/2 Mg Film) 1 film BUCCAL DAILY [facility] Last Admin: 12/27/23 09:27 Dose: 1 film Documented By: GARFIELD Enoxaparin Sodium (Enoxaparin Sodium 40 Mg/0.4 Ml Syringe) 40 mg SUBCUT Q24H [facility] Last Admin: 12/27/23 08:35 Dose: 40 mg Documented By: GARFIELD Famotidine (Famotidine/Pf 20 Mg/2 Ml Vial) 20 mg IVPUSH ONCE ONE Stop: 12/27/23 14:08 Folic Acid (Folic Acid 1 Mg Tablet) 1 mg PO DAILY [facility] Last Admin: 12/27/23 08:34 Dose: 1 mg Documented By: GARFIELD Magnesium Oxide (Magnesium Oxide 400 Mg Tablet) 800 mg PO BID [facility] Last Admin: 12/27/23 08:34 Dose: 800 mg Documented By: GARFIELD Melatonin (Melatonin 3 Mg Tablet) 6 mg PO BEDTIME PRN PRN Reason: Sleep Last Admin: 12/26/23 20:16 Dose: 6 mg Documented By: ELIZABETH Nicotine (Nicotine 21 Mg Patch.Td24) 21 mg TRANSDERMA DAILY [facility] Last Admin: 12/27/23 08:33 Dose: 21 mg Documented By: GARFIELD Omeprazole (Omeprazole 40 Mg Capsule.Dr) 40 mg PO BID@0630,1630 [facility] Ondansetron HCl (Ondansetron Hcl 4 Mg/2 Ml Vial) 4 mg IVPUSH Q6H PRN PRN Reason: Nausea and Vomiting Last Admin: 12/26/23 23:51 Dose: 4 mg Documented By: CONNOR Pharmacy Consult (Consult Rx Etoh Phenob Im/Po) 1 each MISCELLANE ONCE PRN; Protocol PRN Reason: Consult order Sodium Chloride (0.9 % Sodium Chloride Flush 3 Ml Syringe) 3 ml IVFLUSH QSHIFT [facility] Last Admin: 12/27/23 08:37 Dose: 3 ml Documented By: GARFIELD Thiamine HCl (Thiamine Hcl 100 Mg Tablet) 100 mg PO DAILY [facility] Last Admin: 12/27/23 08:34 Dose: 100 mg Documented By: GARFIELD Labs 12/27/23 06:53 12/27/23 06:53 Labs: Laboratory Results - last 24 hr 12/27/23 06:53 MCV 99.7 H MCH 35.3 H MCHC 35.4 H RDW 16.5 H Plt Count 99 L MPV 11.6 Absolute Nucleated RBC 0.000 Nucleated RBC % (auto) 0.0 Anion Gap 9 L Estim Creat Clear Calc 93.1 Estimated GFR > 60 Fasting Glucose 110 H Calcium 8.2 L Magnesium 1.4 L* Total Bilirubin 2.8 H Direct Bilirubin 1.9 H AST 63 H ALT 15 Alkaline Phosphatase 146 H Total Protein 6.1 L Albumin 2.3 L Microbiology Microbiology Results: Microbiology 12/25/23 12:50 Gram Stain - Final Ascites Fluid Anaerobic Culture - Preliminary No growth to date. Body Fluid Culture - Final No growth after 2 days Assessment and Plan (1) Withdrawal symptoms, alcohol: Status: Acute (2) AA (alcohol abuse): Status: Acute (3) Hypokalemia due to inadequate potassium intake: Status: Acute Plan 53F PMH opiate dependece, etoh dependence, cocaine use, alcoholic fatty liver disease, presented with weakness Generalized weakness due to acute hypokalemia and acute hypomagnesemia due to alcohol dependence further complicated by etoh neuropathy Replacing electrolytes and monitoring closely strength improving PT eval advance diet Nausea and vomiting likely related to alcoholic gastritis Omeprazole, Famotidine Hypoxia / atelactasis CTA negative for pe, repeat CXR showing no illness s/p paracentesis 12/25/23, feels better, but still hypoxic post tap, negative for sbp incentive spirometry, ambulation, wean as tolerated chest physiotherapy Alcohol dependence with withdrawal Phenobarbital protocol and CIWA - improved Alcoholic fatty liver disease with acute alcoholic hepatitis Abstinence recommended, high-protein diet, monitor LFTs - improving Opiate dependence Suboxone DVT prophylaxis with Lovenox Full Code reason for continued hospitalization:hypoxia, nausea and vomiting Quality Stroke Does the patient have a stroke diagnosis?: No VTE Prior VTE?: No VTE Risk Level:: Medical - moderate - high VTE Device Contraindication: Treatment Not Indicated VTE Drug Contraindication: N/A - Med Ordered
[2023-12-27] MEDS: Omeprazole 40 MG CAPSULE.DR PO (14:23)
[2023-12-27] MEDS: Famotidine/PF 20 MG/2 ML VIAL IVPUSH (14:23)
[2023-12-27] MEDS: Promethazine HCL 25 MG/ML VIAL 12.5 MG IM (14:23)
--- NOTE | 2023-12-27 16:20 | MHC.CM.PN ---
PT recommending STR, this CM met with pt to discuss, and pt agreeable to local STR referrals which were placed in [facility].
--- NOTE | 2023-12-27 18:14 | PC.NURSE ---
Critical Mag reported to Dr Tyler this am 2G IV mag given per order. BP soft in afternoon pt asymptomatic MD aware. Approx 1400 pt c/o increased epigastric pain and nausea. Vomited at this time pt reports feeling more shaky mild tremor noted with arms extended. MD notified. IV famotidine, phenergan and po omeprazole given per order with good effect pt resting in bed in afternoon.
[2023-12-28] VITALS (7 sets, daily range): BP systolic 98–117; BP diastolic 64–80; PULSE 69–96; RESP 16–20; TEMP 36.2–37; O2SAT 92–96
[2023-12-28] MEDS: 0.9 % Sodium Chloride Flush 3 ML SYRINGE IVFLUSH ×4 (06:08→20:14)
[2023-12-28] MEDS: Omeprazole 40 MG CAPSULE.DR PO ×2 (06:08→16:28)
[2023-12-28 07:19] LABS: Magnesium 1.5 mg/dL (1.6-2.6)
[2023-12-28 07:22] LABS: Anion Gap 11 (12-20); Blood Urea Nitrogen 11 mg/dL (9-16); Calcium 8.3 mg/dL (8.4-10.2); Carbon Dioxide 27 mmol/L (22-29); Chloride 107 mmol/L (96-108); Creatinine Clr Calc Pharmacy 93.1; Estimated Glomerular Filt Rate > 60; Glucose Random 110 mg/dL (60-115); Potassium 4.1 mmol/L (3.3-5.1); Sodium 141 mmol/L (135-145)
[2023-12-28] MEDS: Magnesium Sulfate/H2O 2 GM/50 ML PIGGYBACK IV (08:51)
[2023-12-28] MEDS: Enoxaparin Sodium 40 MG/0.4 ML SYRINGE SUBCUT (08:51)
[2023-12-28] MEDS: Folic Acid 1 MG TABLET PO (08:51)
[2023-12-28] MEDS: Thiamine HCL 100 MG TABLET PO (08:51)
[2023-12-28] MEDS: Magnesium Oxide 400 MG TABLET 800 MG PO ×2 (08:51→20:13)
[2023-12-28] MEDS: Buprenorphine/Naloxone 8/2 mg FILM 1 FILM BUCCAL (08:52)
[2023-12-28] MEDS: ondansetron HCL 4 MG/2 ML VIAL IVPUSH (08:56)
[2023-12-28] MEDS: Acetaminophen 325 MG TABLET 650 MG PO (12:28)
[2023-12-28] MEDS: PHENobarbitaL sodium 130 MG/ML VIAL 65 MG IM (12:36)
--- NOTE | 2023-12-28 16:36 | HO.PM.IMPN ---
Subjective Subjective Date of Service: 12/28/23 Interval History: seen and evaluated improved nausea nad vomiting reporting mild tremors denies fever or chills still requires O2 supplement Review of Systems Review of Systems: Yes all other systems are reviewed and are negative Physical Exam Vital Signs: Vital Signs: Last Vital Signs Temp 97.5 F 12/28/23 15:07 Pulse 83 12/28/23 15:07 Resp 20 12/28/23 15:07 BP 110/72 12/28/23 15:07 Pulse Ox 92 12/28/23 15:07 O2 Del Method Nasal Cannula 12/28/23 15:07 O2 Flow Rate 2 12/28/23 15:07 BMI result Body Mass Index 20.0 Const: Other: Constitutional : Awake, interactive, in mild distress Neck : Normal inspection, Supple Cardiovascular : RRR, no JVP, no lower extremity edema Respiratory : good bilateral air entry, no crackles, wheezes or rhonchi Gastrointestinal: soft, lax, Normal bowel sounds, Non tender Skin : Warm, Dry Neurological : Alert & oriented x3, No focal deficit , mild tremors Objective Data Active Medications Acetaminophen (Acetaminophen 325 Mg Tablet) 650 mg PO Q6H PRN PRN Reason: Pain, Mild (Pain Scale 1-3) Last Admin: 12/28/23 12:28 Dose: 650 mg Documented By: SAMI Buprenorphine/Naloxone (Buprenorphine/Naloxone 8/2 Mg Film) 1 film BUCCAL DAILY [facility] Last Admin: 12/28/23 08:52 Dose: 1 film Documented By: SAMI Enoxaparin Sodium (Enoxaparin Sodium 40 Mg/0.4 Ml Syringe) 40 mg SUBCUT Q24H [facility] Last Admin: 12/28/23 08:51 Dose: 40 mg Documented By: SAMI Folic Acid (Folic Acid 1 Mg Tablet) 1 mg PO DAILY [facility] Last Admin: 12/28/23 08:51 Dose: 1 mg Documented By: SAMI Magnesium Oxide (Magnesium Oxide 400 Mg Tablet) 800 mg PO BID [facility] Last Admin: 12/28/23 08:51 Dose: 800 mg Documented By: SAMI Melatonin (Melatonin 3 Mg Tablet) 6 mg PO BEDTIME PRN PRN Reason: Sleep Last Admin: 12/26/23 20:16 Dose: 6 mg Documented By: ELIZABETH Nicotine (Nicotine 21 Mg Patch.Td24) 21 mg TRANSDERMA DAILY [facility] Last Admin: 12/28/23 08:53 Dose: Not Given Documented By: SAMI Non-Admin Reason: Patient Refused Omeprazole (Omeprazole 40 Mg Capsule.) 40 mg PO BID@0630,1630 [facility] Last Admin: 12/28/23 16:28 Dose: 40 mg Documented By: RILEY Ondansetron HCl (Ondansetron Hcl 4 Mg/2 Ml Vial) 4 mg IVPUSH Q6H PRN PRN Reason: Nausea and Vomiting Last Admin: 12/28/23 08:56 Dose: 4 mg Documented By: SAMI Pharmacy Consult (Consult Rx Etoh Phenob Im/Po) 1 each MISCELLANE ONCE PRN; Protocol PRN Reason: Consult order Sodium Chloride (0.9 % Sodium Chloride Flush 3 Ml Syringe) 3 ml IVFLUSH QSHIFT [facility] Last Admin: 12/28/23 16:28 Dose: 3 ml Documented By: RILEY Spironolactone (Spironolactone 25 Mg Tablet) 25 mg PO BID [facility]; Protocol Thiamine HCl (Thiamine Hcl 100 Mg Tablet) 100 mg PO DAILY [facility] Last Admin: 12/28/23 08:51 Dose: 100 mg Documented By: SAMI Labs 12/27/23 06:53 12/28/23 06:06 Labs: Laboratory Results - last 24 hr 12/28/23 06:06 Anion Gap 11 L Estim Creat Clear Calc 93.1 Estimated GFR > 60 Random Glucose 110 Calcium 8.3 L Magnesium 1.5 L Microbiology Microbiology Results: Microbiology 12/25/23 12:50 Gram Stain - Final Ascites Fluid Anaerobic Culture - Preliminary No growth to date. Body Fluid Culture - Final No growth after 2 days Assessment and Plan (1) Withdrawal symptoms, alcohol: Status: Acute (2) Hypokalemia due to inadequate potassium intake: Status: Acute (3) AA (alcohol abuse): Status: Acute (4) Hypomagnesemia: Status: Acute Plan 53F PMH opiate dependece, etoh dependence, cocaine use, alcoholic fatty liver disease, presented with weakness Generalized weakness due to acute hypokalemia and acute hypomagnesemia due to alcohol dependence further complicated by etoh neuropathy normal K Mg replacement follow BMP PT rec STR Nausea and vomiting improving likely related to alcoholic gastritis Omeprazole, Famotidine Hypoxia 2/ atelactasis CTA negative for pe, repeat CXR showing no illness s/p paracentesis 12/25/23, feels better, but still hypoxic post tap, negative for sbp incentive spirometry, ambulation, wean as tolerated chest physiotherapy Alcohol dependence with withdrawal Phenobarbital protocol and CIWA - improved PRN PHenobarb Alcoholic fatty liver disease with acute alcoholic hepatitis Abstinence recommended, high-protein diet, monitor LFTs - improving Opiate dependence Suboxone DVT prophylaxis with Lovenox Full Code reason for continued hospitalization:hypoxia, nausea and vomiting Quality Stroke Does the patient have a stroke diagnosis?: No VTE Prior VTE?: No VTE Risk Level:: Medical - moderate - high VTE Device Contraindication: Treatment Not Indicated VTE Drug Contraindication: N/A - Med Ordered
[2023-12-28] MEDS: Spironolactone 25 MG TABLET PO (20:13)
[2023-12-29 04:00] VITALS: BP 95/61; PULSE 71; RESP 16; TEMP 36.6; O2SAT 93
[2023-12-29] MEDS: Omeprazole 40 MG CAPSULE.DR PO (05:55)
[2023-12-29 07:05] LABS: Anion Gap 8 (12-20); Blood Urea Nitrogen 10 mg/dL (9-16); Calcium 8.4 mg/dL (8.4-10.2); Carbon Dioxide 29 mmol/L (22-29); Chloride 107 mmol/L (96-108); Creatinine Clr Calc Pharmacy 99.4; Estimated Glomerular Filt Rate > 60; Glucose Random 87 mg/dL (60-115); Potassium 4.6 mmol/L (3.3-5.1); Sodium 139 mmol/L (135-145)
[2023-12-29 07:10] LABS: Magnesium 1.6 mg/dL (1.6-2.6)
[2023-12-29 07:16] VITALS: BP 109/70; PULSE 75; RESP 20; TEMP 37.2; O2SAT 92
[2023-12-29] MEDS: 0.9 % Sodium Chloride Flush 3 ML SYRINGE IVFLUSH (09:22)
[2023-12-29] MEDS: Folic Acid 1 MG TABLET PO (09:23)
[2023-12-29] MEDS: Spironolactone 25 MG TABLET PO (09:23)
[2023-12-29] MEDS: Thiamine HCL 100 MG TABLET PO (09:24)
[2023-12-29] MEDS: Magnesium Oxide 400 MG TABLET 800 MG PO (09:24)
[2023-12-29] MEDS: Buprenorphine/Naloxone 8/2 mg FILM 1 FILM BUCCAL (09:25)
[2023-12-29] MEDS: Enoxaparin Sodium 40 MG/0.4 ML SYRINGE SUBCUT (09:25)
--- NOTE | 2023-12-29 10:18 | MHC.CM.PN ---
CM met with Patient at bedside to discuss PT's recommendation for STR. Patient wants to go home and understands that she will not be eligible for VNA/home PT because she has no PCP. Patient explained that she lives with her Father and her sister and that her Sister has Caregiver experience. has been made aware.
--- NOTE | 2023-12-29 11:11 | MHC.CM.PN ---
Patient has been medically cleared for dc to home today, self care; Sister will transport.
--- NOTE | 2023-12-29 11:17 | P.DS_ITS ---
DS: Providers Provider Date of Service: 12/29/23 Date of admission: 12/21/23 14:54 Primary care physician: None Physician Consults: 12/21/23 15:01 Addiction Medicine Routine Consulting Provider: Addiction Covering Reason for consultation: etoh, coacaine DS: Diagnosis Discharge Diagnosis (1) Withdrawal symptoms, alcohol: Status: Acute (2) Hypokalemia due to inadequate potassium intake: Status: Acute (3) AA (alcohol abuse): Status: Acute (4) Hypomagnesemia: Status: Acute (5) Hypoxia: Status: Acute (6) Atelectasis: Status: Acute DS: Summary Hospital Course Hospital Course: Admission note 53F PMH opidate dependece, etoh dependence, cocaine use, alcoholic fatty liver disease, presented with weakness. Patient is a vague historian. Reports 2 weeks of lower extremity weakness, numbness, tingling and pain. Per triage note was also complaining of shortness of breath. Currently denying. Also mentioned epigastric pain at some point but currently denying. Patient's last drink of alcohol was night prior to presentation. Labs with elevated bilirubin, hypokalemia, hypomagnesemia. Hospital course Treated for Generalized weakness due to acute hypokalemia and acute hypomagne semia due to alcohol dependence further complicated by etoh neuropathy. Improved as we corrected hypokalemia and hypomagnesemia with IV and PO replacement. PT evaluated her and recommended STR placement but she prefers to go home understanding that she wont have any VNA services at home. Reported Nausea and vomiting that is likely related to alcoholic gastritis. Improved with Omeprazole, Famotidine. To continue Omeprazole daily. She was also noticed to have Hypoxia requiring O2 supplement as a result of atelactasis as CTA negative for PE, incentive spirometry, ambulation, wean as tolerated as repeated CXR did not show any acute illness. For ascites she had paracentesis 12/25/23, negative for SBP. For the Alcohol dependence with withdrawal treated with Phenobarbital protocol and CIWA with good response as we continued Thiamine and folic acid. she has Alcoholic fatty liver disease with acute alcoholic hepatitis with LFT trending down during hospital stay. Discharge Plan we advise you complete abstinence from alcohol Start Omeprazole daily Continue home Thiamine and folic acid Time Attestation Discharge Coordination Time (in mins): 36 Quality: Safe Use of Opioids Does Pt have an Active Cancer Diagnosis on the Problem List?: No Quality: Stroke Does the patient have a stroke diagnosis?: No Physical Exam Vital Signs: Vital Signs: Last Vital Signs Temp 98.9 F 12/29/23 07:16 Pulse 75 12/29/23 07:16 Resp 20 12/29/23 07:16 BP 109/70 12/29/23 07:16 Pulse Ox 92 12/29/23 07:16 O2 Del Method Room Air 12/29/23 07:16 O2 Flow Rate 2 12/28/23 15:07 BMI result Body Mass Index 20.0 Const: Other: Constitutional : Awake, interactive, not in distress Neck : Normal inspection, Supple Cardiovascular : RRR, no JVP, no lower extremity edema Respiratory : good bilateral air entry, no crackles, wheezes or rhonchi Gastrointestinal: soft, lax, Normal bowel sounds, Non tender Skin : Warm, Dry Neurological : Alert & oriented x3, No focal deficit , no tremors DS: Data Data Completed and Pending Completed studies during hospitalization [Text1]: Procedures Detoxification Services for Substance Abuse Treatment (11/08/23) Labs on day of discharge: Laboratory Results - last 24 hr 12/29/23 06:11 Hold Purple Top SEE NOTE Sodium 139 Potassium 4.6 Chloride 107 Carbon Dioxide 29 Anion Gap 8 L BUN 10 Creatinine 0.59 Estim Creat Clear Calc 99.4 Estimated GFR > 60 Random Glucose 87 Calcium 8.4 Magnesium 1.6 Preliminary micro results at discharge 12/25/23 12:50 Anaerobic Culture - Preliminary Ascites Fluid No growth to date. Imaging CT scan - chest: Radiologist's impression: ITS Impressions Chest X-Ray 12/21/23 14:22 IMPRESSION: No acute pulmonary pathology. Chest CTA 12/22/23 10:41 IMPRESSION: Low lung volumes and bibasilar subsegmental atelectasis. Small left pleural effusion. Severe fatty infiltration of the liver and at least moderate amount of ascites. Wall thickening of the distal esophagus and proximal stomach and question small esophageal hernia. VTE: negative Abdomen Ultrasound 12/23/23 14:39 IMPRESSION: * Mild hepatomegaly, diffuse hepatic steatosis and findings suggestive of portal venous hypertension. * Moderate volume of abdominal ascites is detected. * Common bile duct is chronically dilated to 1 cm diameter and the intrahepatic ducts are mildly dilated. Chest X-Ray 12/26/23 10:17 IMPRESSION: No acute cardiopulmonary disease. Discharge Plan Discharge Anticipated Discharge Date/Time: 12/29/23 10:54 Patient Disposition: Home, Self-Care Discharge Diagnosis: Alcohol withdrawal electrolytes imbalance Referrals: Physician,None [Primary Care Provider] - 1 Week Discharge Medications: New omeprazole 40 mg Capsule,Delayed Release(Dr/Ec) 40 mg PO DAILY Qty: 90 0RF nicotine 21 mg/24 hr Patch 24 Hour 21 mg transdermal DAILY Qty: 30 0RF Continued buprenorphine-naloxone [Suboxone] 8-2 mg film 1 film buccal DAILY Qty: 7 0RF spironolactone 50 mg tablet 50 mg PO BID Qty: 60 0RF magnesium oxide 400 mg magnesium tablet 400 mg PO BID Qty: 180 0RF furosemide [Lasix] 20 mg tablet 20 mg PO QAM Qty: 30 0RF potassium chloride 20 mEq tablet extended release 20 meq PO DAILY Qty: 30 0RF folic acid 1 mg tablet 1 mg PO DAILY Qty: 90 0RF thiamine HCl (vitamin B1) 100 mg tablet 100 mg PO DAILY Qty: 90 0RF clonidine HCl 0.1 mg tablet 0.1 mg PO QHS PRN (Reason: anxiety/insomnia) Discharge Orders: Discharge Order (Routine); Ordered 12/29/23 Ordered By: Eddie Tyler Diet: Advance to usual diet Activity on Discharge: As tolerated Stand Alone Forms: Patient Portal Discharge page Print Language: Citizen Of [place] Care Plan Goals: Read below Health Concerns: Read below Plan of Treatment: Read below Assessment: You were treated for alcohol withdrawal and electrolytes imbalance with good response over the course of hospital stay. we advise you complete abstinence from alcohol Start Omeprazole daily Continue home Thiamine and folic acid
[2023-12-29 11:38] VITALS: BP 136/72; PULSE 85; RESP 20; TEMP 36.9; O2SAT 93
[2023-12-31 08:16] LABS: Albumin Peritoneal Fluid 0.7
[2023-12-31 08:18] LABS: Total Protein Peritoneal Fluid 1.3
== END 2023-12-29 14:27 | disposition home or self-care (01) | DRG 280 ==
LOC: HO.ED 13:54 → HO.EDOVER 15:20 → HO.IMC 19:54
PROVIDERS: Nurse Practitioner Family; Physician Assistant Surgical; Admitting Provider Internal Medicine; Emergency Provider Student in an Organized Health Care Education/Training Program; Visit Provider Student in an Organized Health Care Education/Training Program
DX: K70.11 Alcoholic hepatitis with ascites (principal); K70.0 Alcoholic fatty liver; J96.01 Acute respiratory failure with hypoxia; G62.1 Alcoholic polyneuropathy; E83.42 Hypomagnesemia; J98.11 Atelectasis; F10.288 Alcohol dependence with other alcohol-induced disorder; K29.20 Alcoholic gastritis without bleeding; F10.239 Alcohol dependence with withdrawal, unspecified; E87.6 Hypokalemia; F11.20 Opioid dependence, uncomplicated; F17.210 Nicotine dependence, cigarettes, uncomplicated; Z71.6 Tobacco abuse counseling; Z20.822 Contact with and (suspected) exposure to COVID-19; Y90.7 Blood alcohol level of 200-239 mg/100 ml; Z79.899 Other long term (current) drug therapy
CPT/HCPCS: 0241U; 36415; 49083; 71045; 71046; 71275; 76700; 80048; 80053; 80076; 80307; 82042; 83690; 83735; 84157; 84484; 85025; 85027; 85610; 87070; 87073; 87205; 89051; 93005; 97110; 97116; 97162; 99285; J1200; J1650; J2405; J2550; J2560; J3475; J3480; P9047; Q9967

== ENCOUNTER → 2023-12-21 10:49 | Outpatient (BNV) | payer MEDICAID, SELFPAY | PROVIDERS: Admitting Provider Internal Medicine; Emergency Provider Student in an Organized Health Care Education/Training Program; Visit Provider Internal Medicine Cardiovascular Disease | DX: R07.9 Chest pain, unspecified (principal) | CPT/HCPCS: 93010 ==

== ENCOUNTER 2023-12-21 14:54 | Outpatient (BNV) | payer MEDICAID, SELFPAY | END 2023-12-25 12:15 | PROVIDERS: Admitting Provider Internal Medicine; Emergency Provider Student in an Organized Health Care Education/Training Program; Visit Provider Physician Assistant Surgical | DX: R18.8 Other ascites (principal) | CPT/HCPCS: 49083 ==

== ENCOUNTER → 2023-12-21 14:54 | Outpatient (BNV) | payer MEDICAID, SELFPAY | PROVIDERS: Admitting Provider Internal Medicine; Emergency Provider Student in an Organized Health Care Education/Training Program; Visit Provider Internal Medicine | DX: E87.6 Hypokalemia (principal); E83.42 Hypomagnesemia; F10.939 Alcohol use, unspecified with withdrawal, unspecified; R09.02 Hypoxemia; J98.11 Atelectasis | CPT/HCPCS: 99223; 99232; 99239 ==

== ENCOUNTER → 2023-12-21 14:54 | Outpatient (BNV) | payer OTHER, SELFPAY | PROVIDERS: Admitting Provider Internal Medicine; Emergency Provider Student in an Organized Health Care Education/Training Program; Visit Provider Nurse Practitioner Psychiatric/Mental Health | DX: F10.939 Alcohol use, unspecified with withdrawal, unspecified (principal) | CPT/HCPCS: 99231 ==

== ENCOUNTER 2024-01-04 09:18 | Outpatient (AMB) | payer MEDICAID, SELFPAY ==
--- NOTE | 2024-01-04 11:01 | MHC.AM.SUB ---
Vital Signs 01/04/24 11:02 BP 110/74 Blood Pressure Location Lt brachial Position Sitting Pulse 90 Pulse Source Pulse Oximeter Pulse Oximetry (%) 95 Oxygen Delivery Method Room Air Intake Visit Reasons: MAT Visit Allergies Penicillins Allergy (Unknown, Verified 12/21/23 11:09) Rash aspirin Adverse Reaction (Intermediate, Verified 12/21/23 11:09) Palpitations codeine Adverse Reaction (Unknown, Verified 12/21/23 11:09) Palpitations HPI HPI MAT Visit: Details: Patient presents for a MAT visit Recently d/c from hospital, during her course of stay she had a paracentesis done She states she has had a few glasses of wine since discharge, when asked why, she states because I feel like I need it She is desiring not only detox, but a step down where she can continue to work on her recovery She states she has felt much less bloated since paracentesis HPI Comments Details: Patient presents for MAT visit [facility] Medical History (Updated 01/06/24 @ 00:02 by Cheng Comer) AA (alcohol abuse) Alcohol use disorder, severe, dependence Pancreatitis Polysubstance use disorder Social History Household Members: Family Household Members Other:: sister Housing: House Do you presently have visiting nurse or other home services: No Alcohol intake: current Alcohol intake frequency: 3 or more drinks per day Alcohol type: wine Patient Tobacco Use Status: Current everyday Tobacco user Tobacco use type: Cigarette Cigarettes Per Day: 6 e-Cigarette/Vaping Use: Currently Using Second Hand Smoke Exposure: No Substance Use Type: Crack/Cocaine service: No Review of Systems Const Reports as per HPI Physical Exam Vital Signs: Last Vital Signs Pulse 90 01/04/24 11:02 BP 110/74 01/04/24 11:02 Pulse Ox 95 01/04/24 11:02 Oxygen Delivery Method Room Air 01/04/24 11:02 Const General: cooperative and no acute distress Resp Effort & Inspection: normal respiratory effort and able to speak in complete sentences Psych Appearance: grossly normal Mental Status: mental status grossly normal Speech and movement: Normal speech and movement present Attitude: cooperative Thought process: Normal thought process present Assessment & Plan Assessment & Plan (1) Alcohol use disorder, severe, dependence: Code(s): F10.20 - Alcohol dependence, uncomplicated Category: Medical Plan: -Discussed at length with patient the dangers of continuing to consume alcohol -Reinforced with her that she needs to taper down her use if she has been drinking daily since discharge -Provided her with number for [facility] -Discussed with her active labwork orders, encouraged her to get them drawn prior to next visit Medications: Refilled buprenorphine-naloxone 8-2 mg (Suboxone) 1 film buccal DAILY 7 ea 1RF
[2024-01-04 11:02] VITALS: BP 110/74; PULSE 90; O2SAT 95
== END 2024-01-04 11:01 | disposition home or self-care (01) ==
PROVIDERS: Referring Provider Nurse Practitioner Family; Visit Provider Nurse Practitioner Family
DX: F10.20 Alcohol dependence, uncomplicated (principal)
CPT/HCPCS: 99213

== ENCOUNTER → 2024-01-04 09:18 | Outpatient (BNVA) | payer OTHER, SELFPAY | PROVIDERS: Visit Provider Nurse Practitioner Family | DX: F10.20 Alcohol dependence, uncomplicated (principal) | CPT/HCPCS: 99212 ==

== ENCOUNTER 2024-01-10 16:22 | Outpatient (AMB) | payer MEDICAID, SELFPAY ==
[2024-01-10 16:22] VITALS: BP 110/68; PULSE 88; O2SAT 97
--- NOTE | 2024-01-10 16:22 | A.OFFVISCC_ITS ---
Vital Signs 01/10/24 16:22 BP 110/68 Blood Pressure Location Lt brachial Position Sitting Pulse 88 Pulse Source Pulse Oximeter Pulse Oximetry (%) 97 Oxygen Delivery Method Room Air Intake Visit Reasons: MAT Visit Allergies Penicillins Allergy (Unknown, Verified 01/10/24 16:22) Rash aspirin Adverse Reaction (Intermediate, Verified 01/10/24 16:22) Palpitations codeine Adverse Reaction (Unknown, Verified 01/10/24 16:22) Palpitations HPI HPI MAT Visit: Details: Patient presents for MAT visit Reports she has been sleeping better States she has not had any nausea or vomiting Last drink was yesterday- approx 8 oz of white wine mixed with apricot juice Feels as though she continues to feel less bloated as a result of the paracentesis Reports her legs continue to be swollen despite taking the lasix prescribed to her daily Reports the skin on her legs is inflamed and has been worsening over the past week to week and a half Denies fevers, does have occasional chills Endorses pain/discomfort behind both knees [facility] Medical History (Updated 01/11/24 @ 10:00 by Tenisha Ferreira NP) AA (alcohol abuse) Alcohol use disorder, severe, dependence Pancreatitis Polysubstance use disorder Social History Household Members: Family Household Members Other:: sister Housing: House Do you presently have visiting nurse or other home services: No Alcohol intake: current Alcohol intake frequency: 3 or more drinks per day Alcohol type: wine Patient Tobacco Use Status: Current everyday Tobacco user Tobacco use type: Cigarette Cigarettes Per Day: 6 e-Cigarette/Vaping Use: Currently Using Second Hand Smoke Exposure: No Substance Use Type: Crack/Cocaine service: No Review of Systems Const Reports as per HPI, Reports chills and Denies fever(s) Skin/Breast Reports pruritus, Reports erythema and Reports skin pain Physical Exam Vital Signs: Last Vital Signs Pulse 88 01/10/24 16:22 BP 110/68 01/10/24 16:22 Pulse Ox 97 01/10/24 16:22 Oxygen Delivery Method Room Air 01/10/24 16:22 Const General: cooperative and no acute distress Skin Other: BLE warm to touch General skin exam: erythema Extrem General: No calf tenderness and Yes edema (to BLE) Assessment & Plan Assessment & Plan (1) Alcohol use disorder, severe, dependence: Code(s): F10.20 - Alcohol dependence, uncomplicated Category: Medical Plan: -Discussed with her strategies to continue to decrease alchol use -Encouraged her on the progress she has made (2) Opioid use disorder: Code(s): F11.90 - Opioid use, unspecified, uncomplicated Category: Medical Plan: -Tolerating suboxone 8mg / day, no refill due at this time (3) Inflammation, skin: Code(s): L08.9 - Local infection of the skin and subcutaneous tissue, unspecified Category: Medical Plan: -Encouraged patient to present to the emergency department for what appears to be cellulitis to BLE -Reviewed with her the importance of getting her legs checked Medications: New melatonin 5 mg PO BEDTIME PRN 30 tabs 0RF sleep
== END 2024-01-10 17:02 | disposition home or self-care (01) ==
PROVIDERS: Visit Provider Nurse Practitioner Family
DX: F10.20 Alcohol dependence, uncomplicated (principal); F11.90 Opioid use, unspecified, uncomplicated; L08.9 Local infection of the skin and subcutaneous tissue, unspecified
CPT/HCPCS: 99213

== ENCOUNTER → 2024-01-10 16:22 | Outpatient (BNVA) | payer OTHER, SELFPAY | PROVIDERS: Visit Provider Nurse Practitioner Family | DX: F10.20 Alcohol dependence, uncomplicated (principal); F11.20 Opioid dependence, uncomplicated; L08.9 Local infection of the skin and subcutaneous tissue, unspecified | CPT/HCPCS: 99212 ==

== ENCOUNTER 2024-02-07 13:40 | Outpatient (AMB) | payer MEDICAID, SELFPAY ==
[2024-02-07 13:46] VITALS: BP 118/70; PULSE 87; O2SAT 93
--- NOTE | 2024-02-07 13:46 | A.OFFVISCC_ITS ---
Vital Signs 02/07/24 13:46 BP 118/70 Blood Pressure Location Rt brachial Position Sitting Pulse 87 Pulse Source Pulse Oximeter Pulse Oximetry (%) 93 Oxygen Delivery Method Room Air Intake Visit Reasons: MAT visit Allergies Penicillins Allergy (Unknown, Verified 01/10/24 16:22) Rash aspirin Adverse Reaction (Intermediate, Verified 01/10/24 16:22) Palpitations codeine Adverse Reaction (Unknown, Verified 01/10/24 16:22) Palpitations HPI HPI MAT visit: Details: Patient presents for MAT visit States she was recently hospitalized (2 weeks ago) for a blood infection , stayed in hospital 1 night and was d/c Has been taking her magnesium, potassium, vitamins Has been feeling fatigued and run-down Tick bite to abdomen with erythema migrans, states she was bitten 1-2 weeks ago Alcohol use has been 2 small bottles of wine and states its not daily , states every other day to every few days Used 1 line of cocaine yesterday, states it was the first time in a few weeks du e to her feeling unwell [facility] Medical History (Updated 02/08/24 @ 16:21 by Tenisha Ferreira NP) AA (alcohol abuse) Alcohol use disorder, severe, dependence Pancreatitis Polysubstance use disorder Social History Household Members: Family Household Members Other:: sister Housing: House Do you presently have visiting nurse or other home services: No Alcohol intake: current Alcohol intake frequency: 3 or more drinks per day Alcohol type: wine Patient Tobacco Use Status: Current everyday Tobacco user Tobacco use type: Cigarette Cigarettes Per Day: 6 e-Cigarette/Vaping Use: Currently Using Second Hand Smoke Exposure: No Substance Use Type: Crack/Cocaine service: No Review of Systems Const Reports as per HPI Physical Exam Vital Signs: Last Vital Signs Pulse 87 02/07/24 13:46 BP 118/70 02/07/24 13:46 Pulse Ox 93 02/07/24 13:46 Oxygen Delivery Method Room Air 02/07/24 13:46 Const General: cooperative and no acute distress Resp Effort & Inspection: normal respiratory effort Skin Lesions: lesion noted (erythmatous with central clearing, scab to the center) Psych Appearance: grossly normal Mental Status: mental status grossly normal Speech and movement: Normal speech and movement present Affect: normal affect Attitude: cooperative Assessment & Plan Assessment & Plan (1) Cocaine use disorder: Code(s): F14.10 - Cocaine abuse, uncomplicated Category: Medical Plan: -Harm reduction discussion (2) Opioid use disorder: Code(s): F11.90 - Opioid use, unspecified, uncomplicated Category: Medical Plan: -Continue suboxone current dose -Follow up 1 week (3) Tick bite of abdomen: Code(s): S30.861A - Insect bite (nonvenomous) of abdominal wall, initial encounter; W57.XXXA - Bitten or stung by nonvenomous insect and other nonvenomous arthropods, initial encounter Category: Medical Qualifiers: Encounter type: initial encounter Qualified Code(s): S30.861A - Insect bite (nonvenomous) of abdominal wall, initial encounter; W57.XXXA - Bitten or stung by nonvenomous insect and other nonvenomous arthropods, initial encounter Plan: -Doxycycline sent. Full course due to henny noted (4) Alcohol use disorder, severe, dependence: Code(s): F10.20 - Alcohol dependence, uncomplicated Category: Medical Plan: -Discussed with her the risks of continued alcohol use -Discussed rehab as an option- she is not yet ready Medications: New doxycycline hyclate Take with food 100 mg PO BID 28 tabs 0RF Refilled potassium chloride ER 20 mEq PO DAILY 30 tabs 0RF folic acid 1 mg PO DAILY 90 tabs 0RF spironolactone 50 mg PO BID 60 tabs 0RF buprenorphine-naloxone 8-2 mg (Suboxone) 1 film buccal DAILY 14 ea 0RF thiamine HCl (vitamin B1) 100 mg PO DAILY 90 tabs 0RF
== END 2024-02-07 14:13 | disposition home or self-care (01) ==
PROVIDERS: Visit Provider Nurse Practitioner Family
DX: F14.10 Cocaine abuse, uncomplicated (principal); F11.90 Opioid use, unspecified, uncomplicated; S30.861A Insect bite (nonvenomous) of abdominal wall, initial encounter; W57.XXXA Bitten or stung by nonvenomous insect and other nonvenomous arthropods, initial encounter; F10.20 Alcohol dependence, uncomplicated
CPT/HCPCS: 99213

== ENCOUNTER → 2024-02-07 13:40 | Outpatient (BNVA) | payer MEDICAID, SELFPAY | PROVIDERS: Visit Provider Nurse Practitioner Family | DX: F10.20 Alcohol dependence, uncomplicated (principal); F14.10 Cocaine abuse, uncomplicated; S30.861A Insect bite (nonvenomous) of abdominal wall, initial encounter; X58.XXXA Exposure to other specified factors, initial encounter; Y93.9 Activity, unspecified; Y92.9 Unspecified place or not applicable; Y99.9 Unspecified external cause status | CPT/HCPCS: 99212 ==

== ENCOUNTER 2024-02-21 13:12 | Outpatient (AMB) | payer MEDICAID, SELFPAY ==
[2024-02-21 14:28] VITALS: BP 80/40; PULSE 90; RESP 18
--- NOTE | 2024-02-21 14:28 | A.OFFVISCC_ITS ---
Vital Signs 02/21/24 14:28 BP 80/40 L Blood Pressure Location Lt brachial Position Sitting Respiration 18 Pulse 90 Pulse Source Pulse Oximeter Intake Visit Reasons: MAT Visit Allergies Penicillins Allergy (Unknown, Verified 01/10/24 16:22) Rash aspirin Adverse Reaction (Intermediate, Verified 01/10/24 16:22) Palpitations codeine Adverse Reaction (Unknown, Verified 01/10/24 16:22) Palpitations HPI HPI MAT Visit: Details: Patient presents for MAT appointment States she has had a very difficult last 2 weeks, she has received news that her sister's cancer has worsened, and states she also found out in this last week that her boyfriend of 3 years has been cheating on her resulting in a breakup She presents as very labile, emotional States she has been drinking 3-4 of the small wine bottles nightly Reports she has been taking all of her prescribed meds except for the potassium and lasix She has been working on trying to take in more protein Reports using a line of cocaine 2-3 x in the past week [facility] Medical History (Updated 02/08/24 @ 16:21 by Tenisha Ferreira NP) AA (alcohol abuse) Alcohol use disorder, severe, dependence Pancreatitis Polysubstance use disorder Social History Household Members: Family Household Members Other:: sister Housing: House Do you presently have visiting nurse or other home services: No Alcohol intake: current Alcohol intake frequency: 3 or more drinks per day Alcohol type: wine Patient Tobacco Use Status: Current everyday Tobacco user Tobacco use type: Cigarette Cigarettes Per Day: 6 e-Cigarette/Vaping Use: Currently Using Second Hand Smoke Exposure: No Substance Use Type: Crack/Cocaine service: No Review of Systems Const Reports as per HPI Physical Exam Vital Signs: Last Vital Signs Pulse 90 02/21/24 14:28 Resp 18 02/21/24 14:28 BP 80/40 L 02/21/24 14:28 Const General: cooperative and anxious Nutritional Appearance: thin Resp Effort & Inspection: normal respiratory effort Psych Appearance: disheveled Mental Status: mental status grossly normal Speech and movement: Normal speech and movement present Affect: Labile affect present and Sad affect present Attitude: cooperative Assessment & Plan Assessment & Plan (1) Alcohol use disorder, severe, dependence: Code(s): F10.20 - Alcohol dependence, uncomplicated Category: Medical Plan: -Phone call placed to patient to alert her of critical magnesium level, voicemail left for patient to call [facility] back urgently (2) Cocaine use disorder: Code(s): F14.10 - Cocaine abuse, uncomplicated Category: Medical Plan: -Harm reduction discussed, encouraged her to continue to use her fentanyl test strips (3) Opioid use disorder: Code(s): F11.90 - Opioid use, unspecified, uncomplicated Category: Medical Plan: -Mass pat reviewed -Continue suboxone 8mg daily, refill sent -FOllow up 1 week Medications: Refilled buprenorphine-naloxone 8-2 mg (Suboxone) 1 film buccal DAILY 14 ea 0RF spironolactone 50 mg PO BID 180 tabs 0RF
== END 2024-02-21 13:54 | disposition home or self-care (01) ==
PROVIDERS: Visit Provider Nurse Practitioner Family
DX: F10.20 Alcohol dependence, uncomplicated (principal); F14.10 Cocaine abuse, uncomplicated; F11.90 Opioid use, unspecified, uncomplicated
CPT/HCPCS: 99213

== ENCOUNTER 2024-02-21 13:12 | Outpatient (REF) | payer MEDICAID, SELFPAY ==
[2024-02-21 15:40] LABS: Magnesium 1.2 mg/dL (1.6-2.6)
[2024-02-21 15:41] LABS: Alanine Aminotransferase 22 U/L (0-31); Albumin Level 2.5 g/dL (3.5-5.0); Alkaline Phosphatase 144 U/L (39-117); Anion Gap 9 (12-20); Aspartate Amino Transferase 118 U/L (5-31); Blood Urea Nitrogen 11 mg/dL (9-16); Calcium 8.1 mg/dL (8.4-10.2); Carbon Dioxide 28 mmol/L (22-29); Chloride 105 mmol/L (96-108); Estimated Glomerular Filt Rate > 60; Glucose Random 101 mg/dL (60-115); Potassium 4.2 mmol/L (3.3-5.1); Sodium 138 mmol/L (135-145); Total Protein 7.5 g/dL (6.5-8.0)
== END 2024-02-21 13:13 | disposition home or self-care (01) ==
LOC: HO.LAB 13:12
PROVIDERS: Visit Provider Nurse Practitioner Family
DX: R89.9 Unspecified abnormal finding in specimens from other organs, systems and tissues (principal)
CPT/HCPCS: 36415; 80053; 83735; 99212

== ENCOUNTER 2024-03-31 10:25 | Outpatient (AMB) | payer MEDICAID, SELFPAY ==
--- NOTE | 2024-03-31 10:22 | A.OFFVISCC_ITS ---
Vital Signs 03/31/24 10:30 BP 80/40 L Blood Pressure Location Rt brachial Position Sitting Respiration 22 H Pulse 65 Pulse Source Pulse Oximeter Pulse Oximetry (%) 98 Intake Visit Reasons: MAT Allergies Penicillins Allergy (Unknown, Verified 01/10/24 16:22) Rash aspirin Adverse Reaction (Intermediate, Verified 01/10/24 16:22) Palpitations codeine Adverse Reaction (Unknown, Verified 01/10/24 16:22) Palpitations HPI HPI MAT: Details: Patient presents for follow up as a walk in for OUD and AUD Drinking 3-4 nips per day. Last drink last evening Increasing stressors at home with worsening health of her sister Discussed patient's ongoing health issues--reinforced that medications would not be refilled by this life underwriter outside of buprenorphine. Patient verbalized understanding. [facility] Medical History (Updated 02/08/24 @ 16:21 by Tenisha Ferreira NP) AA (alcohol abuse) Alcohol use disorder, severe, dependence Pancreatitis Polysubstance use disorder Social History Household Members: Family Household Members Other:: sister Housing: House Do you presently have visiting nurse or other home services: No Alcohol intake: current Alcohol intake frequency: 3 or more drinks per day Alcohol type: wine Patient Tobacco Use Status: Current everyday Tobacco user Tobacco use type: Cigarette Cigarettes Per Day: 6 e-Cigarette/Vaping Use: Currently Using Second Hand Smoke Exposure: No Substance Use Type: Crack/Cocaine service: No Review of Systems Const Reports as per HPI Physical Exam Vital Signs: Last Vital Signs Pulse 65 03/31/24 10:30 Resp 22 H 03/31/24 10:30 BP 80/40 L 03/31/24 10:30 Pulse Ox 98 03/31/24 10:30 Const General: cooperative, alert, awake, anxious and well groomed Nutritional Appearance: thin Orientation/consciousness: patient oriented x3 Limitations: no limitations Neuro General: patient oriented x3 Extrem Left lower extremity: edema (bilateral lower extremity edema ) Psych Speech and movement: Clear speech present Affect: Sad affect present Attitude: cooperative Thought process: Circumstantial thought process present Insight: Fair insight present (Psych) Judgement: Fair judgement present (Psych) Assessment & Plan Assessment & Plan (1) Opioid use disorder: Code(s): F11.90 - Opioid use, unspecified, uncomplicated Category: Medical Plan: * continue suboxone at current dose * overdose prevention discussion (2) Alcohol use disorder, severe, dependence: Code(s): F10.20 - Alcohol dependence, uncomplicated Category: Medical Plan: * risk reduction discussion * follow up 4 weeks Medications: Refilled buprenorphine-naloxone 8-2 mg (Suboxone) 1 film buccal DAILY 30 ea 0RF
[2024-03-31 10:30] VITALS: BP 80/40; PULSE 65; RESP 22; O2SAT 98
== END 2024-03-31 11:09 | disposition home or self-care (01) ==
PROVIDERS: Visit Provider Nurse Practitioner Psychiatric/Mental Health
DX: F11.90 Opioid use, unspecified, uncomplicated (principal); F10.20 Alcohol dependence, uncomplicated
CPT/HCPCS: 99214

== ENCOUNTER → 2024-03-31 10:25 | Outpatient (BNVA) | payer MEDICAID, SELFPAY | PROVIDERS: Visit Provider Nurse Practitioner Psychiatric/Mental Health | DX: F11.90 Opioid use, unspecified, uncomplicated (principal); F10.20 Alcohol dependence, uncomplicated | CPT/HCPCS: 99212 ==

== ENCOUNTER 2024-06-09 13:02 | Outpatient (AMB) | payer MEDICAID, SELFPAY ==
--- NOTE | 2024-06-09 13:01 | A.OFFVISCC_ITS ---
Intake Visit Reasons: MAT Tele Allergies Penicillins Allergy (Unknown, Verified 01/10/24 16:22) Rash aspirin Adverse Reaction (Intermediate, Verified 01/10/24 16:22) Palpitations codeine Adverse Reaction (Unknown, Verified 01/10/24 16:22) Palpitations HPI HPI MAT Tele: Details: Patient presents for follow up Sister recently passed Drinking about a sleeve a day reports she has cut down since her sister passed now drinking about 4 nips appetite improved her plan is to admit herself for treatment following her sister's services [facility] Medical History (Updated 02/08/24 @ 16:21 by Tenisha Ferreira NP) AA (alcohol abuse) Alcohol use disorder, severe, dependence Pancreatitis Polysubstance use disorder Social History Household Members: Family Household Members Other:: sister Housing: House Do you presently have visiting nurse or other home services: No Alcohol intake: current Alcohol intake frequency: 3 or more drinks per day Alcohol type: wine Patient Tobacco Use Status: Current everyday Tobacco user Tobacco use type: Cigarette Cigarettes Per Day: 6 e-Cigarette/Vaping Use: Currently Using Second Hand Smoke Exposure: No Substance Use Type: Crack/Cocaine service: No Review of Systems Const Reports as per HPI Telehealth Telehealth Telehealth Platform: Telephone Location of provider rendering services: practice address Location of patient: address on file Patient Identification confirmed using: Name, : Yes Telehealth method: voice only Patient verbally consented to treatment: Yes Patient verbally consented to billing insurance company: Yes Minutes spent on Phone/Video with Pt.: 25 Assessment & Plan Assessment & Plan (1) Alcohol use disorder, severe, dependence: Code(s): F10.20 - Alcohol dependence, uncomplicated Category: Medical Plan: * risk reduction discussion (2) Opioid use disorder: Code(s): F11.90 - Opioid use, unspecified, uncomplicated Category: Medical Plan: * continue suboxone at current dose * follow up 2 weeks
== END 2024-06-09 13:26 | disposition home or self-care (01) ==
PROVIDERS: Visit Provider Nurse Practitioner Psychiatric/Mental Health
DX: F10.20 Alcohol dependence, uncomplicated (principal); F11.90 Opioid use, unspecified, uncomplicated
CPT/HCPCS: 99214

== ENCOUNTER → 2024-06-09 13:02 | Outpatient (BNVA) | payer MEDICAID, SELFPAY | PROVIDERS: Visit Provider Nurse Practitioner Psychiatric/Mental Health ==

== ENCOUNTER 2024-10-15 09:14 | Outpatient (AMB) | payer OTHER, SELFPAY ==
--- NOTE | 2024-10-15 09:14 | A.OFFVISCC_ITS ---
Intake Visit Reasons: MAT Tele Allergies Penicillins Allergy (Unknown, Verified 01/10/24 16:22) Rash aspirin Adverse Reaction (Intermediate, Verified 01/10/24 16:22) Palpitations codeine Adverse Reaction (Unknown, Verified 01/10/24 16:22) Palpitations [facility] MAT Tele: Details: Patient presents for follow up via telehealth for AUD and OUD Currently prescribed Suboxone 8mg QD 2 major losses within the last few months (father and sister) Has been connecting to evangelical for support Restarted therapy at [facility] Support groups at local [facility] Very tearful, difficulty sleeping Denies substance use Drinking--not daily Review of Systems Const Reports as per HPI Telehealth Telehealth Telehealth Platform: Telephone Location of provider rendering services: practice address Location of patient: address on file Patient Identification confirmed using: Name, : Yes Telehealth method: voice only Patient verbally consented to treatment: Yes Patient verbally consented to billing insurance company: Yes Minutes spent on Phone/Video with Pt.: 15 [facility] Medical History (Updated 02/08/24 @ 16:21 by Tenisha Ferreira NP) AA (alcohol abuse) Alcohol use disorder, severe, dependence Pancreatitis Polysubstance use disorder Social History Household Members: Family Household Members Other:: sister Housing: House Do you presently have visiting nurse or other home services: No Alcohol intake: current Alcohol intake frequency: 3 or more drinks per day Alcohol type: wine Patient Tobacco Use Status: Current everyday Tobacco user Tobacco use type: Cigarette Cigarettes Per Day: 6 e-Cigarette/Vaping Use: Currently Using Second Hand Smoke Exposure: No Substance Use Type: Crack/Cocaine service: No Assessment & Plan Assessment & Plan (1) Alcohol use disorder, severe, dependence: Code(s): F10.20 - Alcohol dependence, uncomplicated Category: Medical Plan: * risk reduction discussion (2) Opioid use disorder: Code(s): F11.90 - Opioid use, unspecified, uncomplicated Category: Medical Plan: * continue suboxone at current dose * follow up 4 weeks
== END 2024-10-15 09:55 | disposition home or self-care (01) ==
PROVIDERS: Visit Provider Nurse Practitioner Psychiatric/Mental Health
DX: F10.20 Alcohol dependence, uncomplicated (principal); F11.90 Opioid use, unspecified, uncomplicated
CPT/HCPCS: 98012

== ENCOUNTER → 2024-10-15 09:14 | Outpatient (BNVA) | payer MEDICAID, SELFPAY | PROVIDERS: Visit Provider Nurse Practitioner Psychiatric/Mental Health ==

== ENCOUNTER 2024-11-07 08:55 | Outpatient (AMB) | payer OTHER, SELFPAY ==
--- NOTE | 2024-11-07 08:49 | A.OFFVISCC_ITS ---
Intake Visit Reasons: MAT Tele Allergies Penicillins Allergy (Unknown, Verified 01/10/24 16:22) Rash aspirin Adverse Reaction (Intermediate, Verified 01/10/24 16:22) Palpitations codeine Adverse Reaction (Unknown, Verified 01/10/24 16:22) Palpitations HPI HPI MAT Tele: Details: Patient presents for follow up via telehealth --unable Currently medically admitted to [place] after a fall and ? of seizure per cousin (Amber) , unable to ambulate and will likely require STR following admission Review of Systems Const Reports difficulty sleeping, Reports lethargy, Reports malaise, Reports poor appetite and Reports weakness Neuro Reports weakness Telehealth Telehealth Telehealth Platform: Telephone Location of provider rendering services: practice address Location of patient: other Patient Identification confirmed using: Name, : Yes Telehealth method: voice only Patient verbally consented to treatment: Yes Patient verbally consented to billing insurance company: Yes Minutes spent on Phone/Video with Pt.: 15 [facility] Medical History (Updated 02/08/24 @ 16:21 by Tenisha Ferreira NP) AA (alcohol abuse) Alcohol use disorder, severe, dependence Pancreatitis Polysubstance use disorder Social History Household Members: Family Household Members Other:: sister Housing: House Do you presently have visiting nurse or other home services: No Alcohol intake: current Alcohol intake frequency: 3 or more drinks per day Alcohol type: wine Patient Tobacco Use Status: Current everyday Tobacco user Tobacco use type: Cigarette Cigarettes Per Day: 6 e-Cigarette/Vaping Use: Currently Using Second Hand Smoke Exposure: No Substance Use Type: Crack/Cocaine service: No Assessment & Plan Assessment & Plan (1) Alcohol use disorder, severe, dependence: Code(s): F10.20 - Alcohol dependence, uncomplicated Category: Medical Plan: * patient to call and schedule appt when appropriate (2) Opioid use disorder: Code(s): F11.90 - Opioid use, unspecified, uncomplicated Category: Medical Plan: * continue suboxone at current dose
== END 2024-11-07 09:48 | disposition home or self-care (01) ==
PROVIDERS: Visit Provider Nurse Practitioner Psychiatric/Mental Health
DX: F10.20 Alcohol dependence, uncomplicated (principal); F11.90 Opioid use, unspecified, uncomplicated
CPT/HCPCS: 98012

== ENCOUNTER → 2024-11-07 08:55 | Outpatient (BNVA) | payer MEDICAID, SELFPAY | PROVIDERS: Visit Provider Nurse Practitioner Psychiatric/Mental Health | DX: F10.20 Alcohol dependence, uncomplicated (principal); F11.90 Opioid use, unspecified, uncomplicated ==

== ENCOUNTER 2024-11-19 09:10 | Outpatient (AMB) | payer OTHER, SELFPAY ==
--- NOTE | 2024-11-19 09:08 | A.OFFVISCC_ITS ---
Intake Visit Reasons: MAT Tele Allergies Penicillins Allergy (Unknown, Verified 01/10/24 16:22) Rash aspirin Adverse Reaction (Intermediate, Verified 01/10/24 16:22) Palpitations codeine Adverse Reaction (Unknown, Verified 01/10/24 16:22) Palpitations Medication List - Last Reconciled 11/19/24 by Blaire Cedillo CNP buprenorphine-naloxone 8-2 mg (Suboxone) 1 film buccal DAILY clonidine HCl 0.1 mg PO QHS PRN folic acid 1 mg PO DAILY furosemide (Lasix) 20 mg PO QAM magnesium oxide 400 mg PO BID melatonin 5 mg PO BEDTIME nicotine 21 mg transdermal DAILY omeprazole 40 mg PO DAILY potassium chloride ER 20 mEq PO DAILY spironolactone 50 mg PO BID thiamine HCl (vitamin B1) 100 mg PO DAILY HPI HPI MAT Tele: Details: Patient presents for follow up via telehealth Reports she was discharged from hospital about a week and a half ago Prescribed Suboxone 8mg daily --tolerating current dose Attempted to reconcile patient's medications, but she is unsure what she is currently taking Asked patient to bring medication list from hospital and all medication bottles to next appt to review with the RN Discussed drinking --reports she is drinking 2 nips daily (sometimes more) Has been trying to drink non alcohol containing wine. Review of Systems Const Reports as per HPI, Reports difficulty sleeping, Reports lethargy, Reports malaise and Reports poor appetite GI Denies coffee ground emesis, Reports constipation, Denies loose stools, Denies nausea and Denies vomiting Psych Reports anxiety and Reports change in appetite Telehealth Telehealth Telehealth Platform: Telephone Location of provider rendering services: practice address Location of patient: address on file Patient Identification confirmed using: Name, : Yes Telehealth method: voice only Patient verbally consented to treatment: Yes Patient verbally consented to billing insurance company: Yes Minutes spent on Phone/Video with Pt.: 20 [facility] Medical History (Updated 02/08/24 @ 16:21 by Tenisha Ferreira NP) AA (alcohol abuse) Alcohol use disorder, severe, dependence Pancreatitis Polysubstance use disorder Social History Household Members: Family Household Members Other:: sister Housing: House Do you presently have visiting nurse or other home services: No Alcohol intake: current Alcohol intake frequency: 3 or more drinks per day Alcohol type: wine Patient Tobacco Use Status: Current everyday Tobacco user Tobacco use type: Cigarette Cigarettes Per Day: 6 e-Cigarette/Vaping Use: Currently Using Second Hand Smoke Exposure: No Substance Use Type: Crack/Cocaine service: No Assessment & Plan Assessment & Plan (1) Opioid use disorder: Code(s): F11.90 - Opioid use, unspecified, uncomplicated Category: Medical Plan: * continue suboxone at current dose * follow up one month in office (2) Alcohol use disorder, severe, dependence: Code(s): F10.20 - Alcohol dependence, uncomplicated Category: Medical Plan: * risk reduction discussion Medications: Refilled buprenorphine-naloxone 8-2 mg (Suboxone) 1 film buccal DAILY 30 ea 0RF
== END 2024-11-19 09:34 | disposition home or self-care (01) ==
LOC: HO.HCC 09:11
PROVIDERS: Visit Provider Nurse Practitioner Psychiatric/Mental Health
DX: F10.20 Alcohol dependence, uncomplicated (principal); F11.90 Opioid use, unspecified, uncomplicated
CPT/HCPCS: 98012

== ENCOUNTER 2024-12-31 14:05 | Outpatient (AMB) | payer OTHER, SELFPAY ==
--- NOTE | 2024-12-31 14:21 | MHC.OFFVIS ---
Vital Signs 12/31/24 14:22 Height 5 ft 5 in Weight 125 lb BMI 20.8 Pulse 92 Pulse Source Pulse Oximeter Pulse Oximetry (%) 98 Oxygen Delivery Method Room Air Intake Visit Reasons: MAT Allergies Penicillins Allergy (Unknown, Verified 12/31/24 14:22) Rash aspirin Adverse Reaction (Intermediate, Verified 12/31/24 14:22) Palpitations codeine Adverse Reaction (Unknown, Verified 12/31/24 14:22) Palpitations HPI HPI MAT: Details: She has long standing alcohol use disorder She denies drinking now. She had opioid pill addiction and then heroin. Her sister who had lung cancer and she took care of in June and her father in August. She lives with boyfriend who is support system and a sassy [place]. She says one 8/2 daily is enough Suboxone. She has counseling services and was advised can get Narcan in pharmacy. She has grief but no SI or HI. She has had alcohol withdrawal seizures in past. She has not seen GI. [facility] Medical History AA (alcohol abuse) Alcohol use disorder, severe, dependence Pancreatitis Polysubstance use disorder Social History Household Members: Family Household Members Other:: sister Housing: House Do you presently have visiting nurse or other home services: No Alcohol intake: current Alcohol intake frequency: 3 or more drinks per day Alcohol type: wine Patient Tobacco Use Status: Current everyday Tobacco user Tobacco use type: Cigarette Cigarettes Per Day: 6 e-Cigarette/Vaping Use: Currently Using Second Hand Smoke Exposure: No Substance Use Type: Crack/Cocaine service: No Review of Systems Const All systems reviewed & are unremarkable except as noted in HPI and below Physical Exam Vital Signs: Last Vital Signs Pulse 92 12/31/24 14:22 Pulse Ox 98 12/31/24 14:22 Oxygen Delivery Method Room Air 12/31/24 14:22 BMI result Body Mass Index 20.8 Const General: cooperative Orientation/consciousness: patient oriented x3 HEENT Head: Yes normal to inspection Mouth: Normal oral and palatal mucosa present Eyes General: appearance normal, both eyes and all related structures Pupils: Equal, round and reactive pupils present Resp Effort & Inspection: normal respiratory effort Cardio Rate: regular rate Rhythm: regular rhythm GI Palpation (GI): Soft to palpation and nontender General: Yes no CVA tenderness Back/Spine/Pelvis Back: no CVA tenderness Skin General skin exam: no rashes or lesions noted Neuro General: patient oriented x3 Cranial nerves: Yes CN's II-XII intact bilaterally and Yes Equal, round and reactive pupils present Extrem General: Yes normal to inspection Psych Appearance: grossly normal Assessment & Plan Assessment & Plan (1) Opioid use disorder: Code(s): F11.90 - Opioid use, unspecified, uncomplicated Category: Medical Plan: She is doing well on one daily Suboxone but I am concerned about cocaine and downers fili which she didnt know was taking. Use discouraged Continue counseling. (2) Alcohol use disorder, severe, dependence: Comment: Liver panel checked May need GI AA if needed. See in one month. Code(s): F10.20 - Alcohol dependence, uncomplicated Category: Medical Plan na Orders: Orders HIV Ab/Ag Today F1.90 - Opioid use, unspecified, uncomplicated Prothrombin Time INR Today F10.20 - Alcohol dependence, uncomplicated Liver Panel Today F10.20 - Alcohol dependence, uncomplicated AMB 14 Panel Urine Drug Screen Today Z51.81 - Encounter for therapeutic drug level monitoring Hepatitis C Antibody Today F11.90 - Opioid use, unspecified, uncomplicated Liver Fibrosis Pnl Today F10.20 - Alcohol dependence, uncomplicated Complete Blood Count Auto Diff Today F10.20 - Alcohol dependence, uncomplicated Creatinine Today F10.20 - Alcohol dependence, uncomplicated Medications: New buprenorphine-naloxone 8-2 mg (Suboxone) 1 film buccal DAILY 30 ea 0RF 30 days Coding Level of Care Code Est Pt Level 4 (55288) Diagnoses Opioid use disorder F11.90 Alcohol use disorder, severe, dependence F10.20
[2024-12-31 14:22] VITALS: PULSE 92; O2SAT 98; BMI 20.8
== END 2024-12-31 15:02 | disposition home or self-care (01) ==
LOC: HO.HCC 14:06
PROVIDERS: Visit Provider Internal Medicine
DX: F11.90 Opioid use, unspecified, uncomplicated (principal); F10.20 Alcohol dependence, uncomplicated; Z51.81 Encounter for therapeutic drug level monitoring
CPT/HCPCS: 99214

== ENCOUNTER → 2024-12-31 14:05 | Outpatient (BNVA) | payer OTHER, SELFPAY | PROVIDERS: Visit Provider Internal Medicine | DX: F10.20 Alcohol dependence, uncomplicated (principal); F11.90 Opioid use, unspecified, uncomplicated; Z51.81 Encounter for therapeutic drug level monitoring | CPT/HCPCS: 80307; 99212 ==

== ENCOUNTER 2025-02-06 10:24 | Outpatient (AMB) | payer OTHER, SELFPAY ==
--- NOTE | 2025-02-06 10:25 | A.OFFVISCC_ITS ---
Vital Signs 02/06/25 10:28 BP 118/82 Blood Pressure Location Lt brachial Position Sitting Pulse 97 Pulse Source Pulse Oximeter Pulse Oximetry (%) 98 Oxygen Delivery Method Room Air Intake Visit Reasons: MAT Intake Note: Patient presents for MATS Allergies Penicillins Allergy (Unknown, Verified 02/06/25 10:27) Rash aspirin Adverse Reaction (Intermediate, Verified 02/06/25 10:27) Palpitations codeine Adverse Reaction (Unknown, Verified 02/06/25 10:27) Palpitations HPI HPI MAT: Details: She is still drinking 3 nips daily,Hettinger Schnappes and fireballs. She notes had seizure last month after trying to quit alcohol and was hospitalized with this and pneumonia at [facility]. She is dealing with custom shoemaker about father and sisters . She denies opioid use or sedation and is using Suboxone. She is looking for alcohol use disorder coaches/go into Rehab. Review of Systems Const All systems reviewed & are unremarkable except as noted in HPI and below Physical Exam Vital Signs: Last Vital Signs Pulse 97 02/06/25 10:28 BP 118/82 02/06/25 10:28 Pulse Ox 98 02/06/25 10:28 Oxygen Delivery Method Room Air 02/06/25 10:28 Const General: cooperative [facility] Medical History AA (alcohol abuse) Alcohol use disorder, severe, dependence Pancreatitis Polysubstance use disorder Social History Household Members: Family Household Members Other:: sister Housing: House Do you presently have visiting nurse or other home services: No Alcohol intake: current Alcohol intake frequency: 3 or more drinks per day Alcohol type: wine Patient Tobacco Use Status: Current everyday Tobacco user Tobacco use type: Cigarette Cigarettes Per Day: 6 e-Cigarette/Vaping Use: Currently Using Second Hand Smoke Exposure: No Substance Use Type: Crack/Cocaine service: No Assessment & Plan Assessment & Plan (1) Alcohol use disorder, severe, dependence: Comment: Liver panel checked May need GI AA if needed. See in one month. Given number [phone] to [facility]. Make sure does labs. Continue thiamine,folate,MVI Code(s): F10.20 - Alcohol dependence, uncomplicated Category: Medical Plan: n/a (2) Cocaine use disorder: Comment: still using every other week,small quantity Code(s): F14.10 - Cocaine abuse, uncomplicated Category: Medical Plan: doesnt want meds try counseling rx (3) Opioid use disorder: Comment: no sedation and no opioid use Code(s): F11.90 - Opioid use, unspecified, uncomplicated Category: Medical Plan: Continue Suboxone 8/2 daily,30 given See in one month Medications: New buprenorphine-naloxone 8-2 mg (Suboxone) 1 film sublingual DAILY 30 days 30 ea 0RF
[2025-02-06 10:28] VITALS: BP 118/82; PULSE 97; O2SAT 98
== END 2025-02-06 10:53 | disposition home or self-care (01) ==
PROVIDERS: Visit Provider Internal Medicine
DX: F10.20 Alcohol dependence, uncomplicated (principal); F14.10 Cocaine abuse, uncomplicated; F11.90 Opioid use, unspecified, uncomplicated
CPT/HCPCS: 99213

== ENCOUNTER → 2025-02-06 10:24 | Outpatient (BNVA) | payer OTHER, SELFPAY | PROVIDERS: Visit Provider Internal Medicine | DX: F11.20 Opioid dependence, uncomplicated (principal); F14.10 Cocaine abuse, uncomplicated; F10.20 Alcohol dependence, uncomplicated | CPT/HCPCS: 99212 ==

== ENCOUNTER 2025-03-10 15:12 | Outpatient (AMB) | payer OTHER, SELFPAY ==
--- NOTE | 2025-03-10 16:19 | A.OFFVISCC_ITS ---
<Statement entered by Brianda Cummins RN - 03/10/25 16:45> Valeria presented for her MAT appointment today. During check in with TW, Valeria tearfully shared her experiences over the past 14 months which included the loss of her sister to cancer and the loss of her father to Dementia. Valeria shared that she continues with her current dose of Suboxone and reports that she has tapered her alcohol use from approximately a liter and a half daily to approximately 5 nips daily due to fear of withdrawal seizures, of which she has experienced twice in the past year when trying to detox herself from alcohol. She reports that she is almost ready to commit to inpatient detox for medically monitored detox and understands that it would be dangerous to attempt herself again. She reports that her boyfriend stays with her most nights since loss of her family members. She is going to contact her primary care practice to set up an appointment for physical and [facility] to re-establish therapy services. TW will research and update Valeria on inpatient treatment options that will be able to facilitate safe detox. She is interested in [facility] PHP/IOP after detox and was given literature to review. Vital Signs 03/10/25 16:31 BP 128/68 Blood Pressure Location Rt brachial Position Sitting Pulse Oximetry (%) 96 Oxygen Delivery Method Room Air Intake Visit Reasons: MAT Allergies Penicillins Allergy (Unknown, Verified 02/06/25 10:27) Rash aspirin Adverse Reaction (Intermediate, Verified 02/06/25 10:27) Palpitations codeine Adverse Reaction (Unknown, Verified 02/06/25 10:27) Palpitations Medication List - Last Reconciled 03/10/25 by JOSE DallasC buprenorphine-naloxone 8-2 mg (Suboxone) 1 film sublingual DAILY 30 days buprenorphine-naloxone 8-2 mg (Suboxone) 1 film buccal DAILY buprenorphine-naloxone 8-2 mg (Suboxone) 1 film buccal DAILY 30 days clonidine HCl 0.1 mg PO QHS PRN folic acid 1 mg PO DAILY furosemide (Lasix) 20 mg PO QAM magnesium oxide 400 mg PO BID melatonin 5 mg PO BEDTIME potassium chloride ER 20 mEq PO DAILY spironolactone 50 mg PO BID thiamine HCl (vitamin B1) 100 mg PO DAILY HPI Comments Details: The patient is a 54 year old female who present for a follow up visit for MAT treatment of opioids. Reports no active use of opioids. Does acknowledge continuos ETOH consumption, although has been able to decrease from a liter per day to 5 nips on average. Reports seizure activity in the past when initiating cessation of alcohol use on her own. The patient is able to articulate the desire to stop drinking alcohol and at the same time reports doesn't feel ready to enter a detox program. Review of Systems Const All systems reviewed & are unremarkable except as noted in HPI and below Physical Exam Vital Signs: Last Vital Signs BP 128/68 03/10/25 16:31 Pulse Ox 96 03/10/25 16:31 Oxygen Delivery Method Room Air 03/10/25 16:31 Const General: cooperative Extrem Right lower extremity: edema and foot Left lower extremity: foot Details: edema Psych Appearance: well kempt Mental Status: mental status grossly normal Speech and movement: Normal speech and movement present Affect: Sad affect present Attitude: cooperative Thought process: Normal thought process present Thought content: Normal thought content present Insight: Fair insight present (Psych) Judgement: Fair judgement present (Psych) [facility] Medical History AA (alcohol abuse) Alcohol use disorder, severe, dependence Pancreatitis Polysubstance use disorder Social History Household Members: Family Household Members Other:: sister Housing: House Do you presently have visiting nurse or other home services: No Alcohol intake: current Alcohol intake frequency: 3 or more drinks per day Alcohol type: wine Patient Tobacco Use Status: Current everyday Tobacco user Tobacco use type: Cigarette Cigarettes Per Day: 6 e-Cigarette/Vaping Use: Currently Using Second Hand Smoke Exposure: No Substance Use Type: Crack/Cocaine service: No Assessment & Plan Assessment & Plan (1) Alcohol use disorder, severe, dependence: Comment: Liver panel checked May need GI AA if needed. See in one month. Given number [phone] to [facility]. Make sure does labs. Continue thiamine,folate,MVI Code(s): F10.20 - Alcohol dependence, uncomplicated Category: Medical (2) Opioid use disorder: Comment: no sedation and no opioid use Code(s): F11.90 - Opioid use, unspecified, uncomplicated Category: Medical Plan The plan of care is to continue with sublingual buprenorphine-naloxone 8-2 mg/daily, folic acid 1 mg/daily, and thiamine 100 mg/daily. Education provided re: following up with PCP for further evaluation r/t foot edema, re-connect with mental health services at [facility]. In additional information for local detox programs provided. The patient is to follow up in one month or sooner if needed. Medications: Refilled buprenorphine-naloxone 8-2 mg (Suboxone) 1 film sublingual DAILY 30 ea 0RF 30 days folic acid 1 mg PO DAILY 90 tabs 0RF thiamine HCl (vitamin B1) 100 mg PO DAILY 90 tabs 0RF Patient Instructions: The patient is to follow up with primary care provider and [facility]. Follow up with [facility] in one month or sooner if needed. Scribe Plan - Not visible on output: .
[2025-03-10 16:31] VITALS: BP 128/68; O2SAT 96
--- NOTE | 2025-03-10 16:32 | AM.OFFVISNUR ---
Vital Signs 03/10/25 16:31 BP 128/68 Blood Pressure Location Rt brachial Position Sitting Pulse Oximetry (%) 96 Oxygen Delivery Method Room Air Intake Visit Reasons: MAT Allergies Penicillins Allergy (Unknown, Verified 02/06/25 10:27) Rash aspirin Adverse Reaction (Intermediate, Verified 02/06/25 10:27) Palpitations codeine Adverse Reaction (Unknown, Verified 02/06/25 10:27) Palpitations Assessment & Plan Assessment & Plan Medications: Refilled buprenorphine-naloxone 8-2 mg (Suboxone) 1 film sublingual DAILY 30 ea 0RF 30 days folic acid 1 mg PO DAILY 90 tabs 0RF thiamine HCl (vitamin B1) 100 mg PO DAILY 90 tabs 0RF Coding
--- NOTE | 2025-03-10 17:05 | A.OFFVISCC_ITS ---
Vital Signs 03/10/25 16:31 BP 128/68 Blood Pressure Location Rt brachial Position Sitting Pulse Oximetry (%) 96 Oxygen Delivery Method Room Air Intake Visit Reasons: MAT Allergies Penicillins Allergy (Unknown, Verified 02/06/25 10:27) Rash aspirin Adverse Reaction (Intermediate, Verified 02/06/25 10:27) Palpitations codeine Adverse Reaction (Unknown, Verified 02/06/25 10:27) Palpitations Physical Exam Vital Signs: Last Vital Signs BP 128/68 03/10/25 16:31 Pulse Ox 96 03/10/25 16:31 Oxygen Delivery Method Room Air 03/10/25 16:31 [facility] Medical History AA (alcohol abuse) Alcohol use disorder, severe, dependence Pancreatitis Polysubstance use disorder Social History Household Members: Family Household Members Other:: sister Housing: House Do you presently have visiting nurse or other home services: No Alcohol intake: current Alcohol intake frequency: 3 or more drinks per day Alcohol type: wine Patient Tobacco Use Status: Current everyday Tobacco user Tobacco use type: Cigarette Cigarettes Per Day: 6 e-Cigarette/Vaping Use: Currently Using Second Hand Smoke Exposure: No Substance Use Type: Crack/Cocaine service: No Assessment & Plan Assessment & Plan Medications: Refilled buprenorphine-naloxone 8-2 mg (Suboxone) 1 film sublingual DAILY 30 ea 0RF 30 days folic acid 1 mg PO DAILY 90 tabs 0RF thiamine HCl (vitamin B1) 100 mg PO DAILY 90 tabs 0RF
== END 2025-03-10 16:35 | disposition home or self-care (01) ==
LOC: HO.HCC 15:12
PROVIDERS: Visit Provider Clinical Nurse Specialist Psychiatric/Mental Health
DX: F10.20 Alcohol dependence, uncomplicated (principal); F11.90 Opioid use, unspecified, uncomplicated
CPT/HCPCS: 99213

== ENCOUNTER → 2025-03-10 15:12 | Outpatient (BNVA) | payer OTHER, SELFPAY | PROVIDERS: Visit Provider Clinical Nurse Specialist Psychiatric/Mental Health | DX: F10.20 Alcohol dependence, uncomplicated (principal); F11.90 Opioid use, unspecified, uncomplicated | CPT/HCPCS: 99212 ==

== ENCOUNTER 2025-04-08 14:33 | Outpatient (AMB) | payer OTHER, SELFPAY ==
--- NOTE | 2025-04-08 14:37 | MHC.OFFVIS ---
Vital Signs 04/08/25 14:38 Height 5 ft 5 in Weight 121 lb BMI 20.1 BP 122/76 Pulse 72 Pulse Oximetry (%) 97 Intake Visit Reasons: MAT Allergies Penicillins Allergy (Unknown, Verified 04/08/25 14:38) Rash aspirin Adverse Reaction (Intermediate, Verified 04/08/25 14:38) Palpitations codeine Adverse Reaction (Unknown, Verified 04/08/25 14:38) Palpitations Medication List - Last Reconciled 04/08/25 by JOSE DallasC buprenorphine-naloxone 8-2 mg (Suboxone) 1 film sublingual DAILY 30 days clonidine HCl 0.1 mg PO QHS PRN folic acid 1 mg PO DAILY furosemide (Lasix) 20 mg PO QAM magnesium oxide 400 mg PO BID melatonin 5 mg PO BEDTIME potassium chloride ER 20 mEq PO DAILY spironolactone 50 mg PO BID thiamine HCl (vitamin B1) 100 mg PO DAILY HPI Comments Details: The patient is a 54-year-old female presents for f/u visit r/t [facility]. Denies opioid use. Reports decreasing quantity of alcohol consumptions from an average of 10-12 nips per day to 4-6 nips per day, intermittent use of cocaine and continues smoking average of 10 cigareets per day. During previous visit the patient reported planning to enter a detox program, at present time reports continung to work toward the goal. l [facility] Medical History AA (alcohol abuse) Alcohol use disorder, severe, dependence Pancreatitis Polysubstance use disorder Social History Household Members: Family Household Members Other:: sister Housing: House Do you presently have visiting nurse or other home services: No Alcohol intake: current Alcohol intake frequency: 3 or more drinks per day Alcohol type: wine Patient Tobacco Use Status: Current everyday Tobacco user Tobacco use type: Cigarette Cigarettes Per Day: 6 e-Cigarette/Vaping Use: Currently Using Second Hand Smoke Exposure: No Substance Use Type: Crack/Cocaine service: No Review of Systems Const All systems reviewed & are unremarkable except as noted in HPI and below Physical Exam Vital Signs: Last Vital Signs Pulse 72 04/08/25 14:38 BP 122/76 07/30/25 14:38 Pulse Ox 97 04/08/25 14:38 BMI result Body Mass Index 20.1 Const General: cooperative Nutritional Appearance: thin Orientation/consciousness: patient oriented x3 Limitations: no limitations Neuro General: patient oriented x3 Psych Appearance: well kempt Mental Status: mental status grossly normal Speech and movement: Normal speech and movement present Affect: Anxious affect present Attitude: cooperative Thought process: Normal thought process present Thought content: Normal thought content present Insight: Fair insight present (Psych) Judgement: Fair judgement present (Psych) Assessment & Plan Assessment & Plan (1) Opioid use disorder: Comment: no sedation and no opioid use Code(s): F11.90 - Opioid use, unspecified, uncomplicated Category: Medical (2) Alcohol use disorder, severe, dependence: Comment: Liver panel checked May need GI AA if needed. See in one month. Given number [phone] to [facility]. Make sure does labs. Continue thiamine,folate,MVI Code(s): F10.20 - Alcohol dependence, uncomplicated Category: Medical (3) Cocaine use disorder: Comment: still using every other week,small quantity Code(s): F14.10 - Cocaine abuse, uncomplicated Category: Medical Plan The plan of care is to continue with buprenorphine-naloxone 8-2 mg daily, continue reducing alcohol consumption and plan to enter detox program due to a history of seizures. Minimize smoking cigarettes and abstain from cocaine use. Medications: Refilled buprenorphine-naloxone 8-2 mg (Suboxone) 1 film sublingual DAILY 30 ea 0RF 30 days Patient Instructions: - continue with buprenorphine-naloxone 8-2 mg daily. - reduce alcohol consumption and plan to enter detox program due to history of seizures. - Minimize smoking cigarettes and abstain from cocaine use. - Follow up in one month or sooner, if needed. - Call with questions, concerns to [facility]. - The patient verbalized understanding and agreed with plan of care. Coding Level of Care Code Est Pt Level 4 (22547) Diagnoses Opioid use disorder F11.90 Alcohol use disorder, severe, dependence F10.20 Cocaine use disorder F14.10
[2025-04-08 14:38] VITALS: BP 122/76; PULSE 72; O2SAT 97; BMI 20.1
--- OUTSIDE RECORDS SUMMARY | 2025-04-08 15:14 | XMS_ITS | Referral Summary ---
Author Organization [facility] Address [address] [place] [address] Phone Care Team Providers Care Pockets And Pieces Necktie Operator Name Role Phone Unavailable Primary Care Provider Unavailabl e Allergies Active Allergy Reactions Criticality Noted Date Comments Aspirin Palpitations Low 11/10/2022 Codeine Palpitations Low 11/10/2022 Penicillins Rash Low 11/10/2022 Medications buprenorphine-na loxone 12-3 mg FilmIndications: Opioid use disorder Place 12 mg under the tongue daily. 7 each 1 11/27/2022 Active Active Problems No known active problems Social History Tobacco Use Types Packs/Day Years Used Date Smoking Tobacco: Never Assessed Comments Unknown Sex and Gender Information Value Date Recorded Sex Assigned at Female 01/29/2023 5:14 PM EDT Legal Sex Female 1:06 PM EST Gender Identity Female 01/29/2023 5:14 PM EDT Sexual Orientation Choose not to disclose 2022 5:14 PM EDT Plan of Treatment Not on file
== END 2025-04-08 14:59 | disposition home or self-care (01) ==
PROVIDERS: Visit Provider Clinical Nurse Specialist Psychiatric/Mental Health
DX: F11.90 Opioid use, unspecified, uncomplicated (principal); F10.20 Alcohol dependence, uncomplicated; F14.10 Cocaine abuse, uncomplicated
CPT/HCPCS: 99214

== ENCOUNTER → 2025-04-08 14:33 | Outpatient (BNVA) | payer OTHER, SELFPAY | PROVIDERS: Visit Provider Clinical Nurse Specialist Psychiatric/Mental Health | DX: F14.10 Cocaine abuse, uncomplicated (principal); F10.20 Alcohol dependence, uncomplicated; F11.90 Opioid use, unspecified, uncomplicated | CPT/HCPCS: 99212 ==

== ENCOUNTER 2025-05-08 14:49 | Outpatient (AMB) | payer OTHER, SELFPAY ==
--- OUTSIDE RECORDS SUMMARY | 2025-05-08 14:50 | XMS_ITS | Clinical Summary ---
Author Organization [facility] Address [address] [place] [address] Phone Care Team Providers Care Integration Solution Architect Name Role Phone Unavailable Primary Care Provider [...] 2022 5:14 PM EDT Plan of Treatment Health Maintenance Due Date Last Done Comments Diabetes Screening 1970 HIV Lifetime Screening 1970 Hepatitis B Lifetime Screening 1970 Hepatitis C Antibody Lifetim e Screening 1970 LIPID PANEL 1970 THRIVE SCREENING 1970 Oral Health Screen 05/02/1971 HEIP Disability Screen 12/01/1975 BEHAVIORAL HEALTH SCREEN 1982 Psych Substance Use Screen 1982 DTAP/TDAP VACCINE (1 - Tdap) 1989 Cervical Cancer Screening 12/01/1991 Colposcopy 12/01/1991 PAP SMEAR 12/01/1991 Pap + HPV 12/01/1991 MAMMOGRAM 2010 Colonoscopy FOBT- Positive 12/01/2015 Colonoscopy 12/01/2015 Colorectal Cancer Screening 12/01/2015 FOBT 12/01/2015 Sigmoidoscopy 12/01/2015 Pneumonia Vaccine 50+ (1 of 1 - PCV) 2020 Zoster Vaccine (1 of 2) 2020 COVID-19 Vaccine ( - 2023-2 5 season) 2024 INFLUENZA VACCINE (#1) 2025 HPV VACCINES Aged Out No longer eligi ble based on patient's age to complete this topic IPV VACCINES Aged Out No longer eligi ble based on patient's age to complete this topic MENINGOCOCCAL B Aged Out No longer el igible based on patient's age to complete this topic ROTAVIRUS VACCINES Aged Out No longer eligible based on patient's age to complete this topic
[2025-05-08 14:59] VITALS: BP 122/78; PULSE 72; O2SAT 94; BMI 20.5
--- NOTE | 2025-05-08 14:59 | A.OFFVIS_ITS ---
Vital Signs 05/08/25 14:59 Height 5 ft 5 in Weight 123 lb BMI 20.5 BP 122/78 Pulse 72 Pulse Oximetry (%) 94 Intake Visit Reasons: MAT Allergies Penicillins Allergy (Unknown, Verified 05/08/25 15:00) Rash aspirin Adverse Reaction (Intermediate, Verified 05/08/25 15:00) Palpitations codeine Adverse Reaction (Unknown, Verified 05/08/25 15:00) Palpitations HPI HPI MAT: Details: She reports taking Suboxone [facility] Medical History AA (alcohol abuse) Alcohol use disorder, severe, dependence Pancreatitis Polysubstance use disorder Social History Household Members: Family Household Members Other:: sister Housing: House Do you presently have visiting nurse or other home services: No Alcohol intake: current Alcohol intake frequency: 3 or more drinks per day Alcohol type: wine Patient Tobacco Use Status: Current everyday Tobacco user Tobacco use type: Cigarette Cigarettes Per Day: 6 e-Cigarette/Vaping Use: Currently Using Second Hand Smoke Exposure: No Substance Use Type: Crack/Cocaine service: No Review of Systems Const All systems reviewed & are unremarkable except as noted in HPI and below Physical Exam Vital Signs: Last Vital Signs Pulse 72 05/08/25 14:59 BP 122/78 05/08/25 14:59 Pulse Ox 94 05/08/25 14:59 BMI result Body Mass Index 20.5 Const General: cooperative Assessment & Plan Assessment & Plan (1) Alcohol use disorder, severe, dependence: Comment: Continue current care See as scheduled. Code(s): F10.20 - Alcohol dependence, uncomplicated Category: Medical Plan n/a Medications: New buprenorphine-naloxone 8-2 mg (Suboxone) 1 film sublingual DAILY 30 ea 0RF 30 days Coding Level of Care Code Est Pt Level 3 (17912) Diagnoses Alcohol use disorder, severe, dependence F10.20
== END 2025-05-08 15:25 | disposition home or self-care (01) ==
LOC: HO.HCC 14:49
PROVIDERS: Visit Provider Internal Medicine
DX: F10.20 Alcohol dependence, uncomplicated (principal)
CPT/HCPCS: 99213

== ENCOUNTER → 2025-05-08 14:49 | Outpatient (BNVA) | payer OTHER, SELFPAY | PROVIDERS: Visit Provider Internal Medicine | DX: F10.20 Alcohol dependence, uncomplicated (principal); F19.20 Other psychoactive substance dependence, uncomplicated; Z79.899 Other long term (current) drug therapy | CPT/HCPCS: 99212 ==